=== PATIENT | male | born 1950 | race Caucasian/White ===

== ENCOUNTER → 2016-08-25 | Outpatient (REF) | payer MEDICARE, OTHER ==
[2016-08-25 16:32] LABS: ALBUMIN 3.4 GM/DL (3.2-5.2); ALKALINE PHOSPHATASE 88 U/L (45-117); ALT/SGPT 14 U/L (12-78); ANION GAP 5 MEQ/L (8-16); AST/SGOT 9 U/L (15-37); BILIRUBIN,TOTAL 0.3 MG/DL (0.2-1.0); BLOOD UREA NITROGEN 15 MG/DL (7-18); CALCIUM LEVEL 9.2 MG/DL (8.8-10.2); CARBON DIOXIDE LEVEL 31 MEQ/L (21-32); CHLORIDE LEVEL 105 MEQ/L (98-107); GLOMERULAR FILTRATION RATE > 60.0 (>49); GLUCOSE, FASTING 77 MG/DL (80-110); POTASSIUM SERUM 4.4 MEQ/L (3.5-5.1); SODIUM LEVEL 141 MEQ/L (136-145); TOTAL PROTEIN 6.8 GM/DL (6.4-8.2)
[2016-08-25 18:02] LABS: BASO # 0.1 K/mm3 (0.0-0.2); BASO % 0.9 % (0.0-1.0); EOS # 0.2 K/mm3 (0.0-0.50); EOS % 2.4 % (0.0-3.0); LARGE UNSTAINED CELL # 0.1 K/mm3 (0.0-0.4); LARGE UNSTAINED CELL % 0.9 % (0.0-4.0); LYMPH # 2.1 K/mm3 (1.5-4.5); LYMPH % 23.1 % (24.0-44.0); MEAN CORPUSCULAR HEMOGLOBIN 32.5 pg (27.0-33.0); MEAN CORPUSCULAR HGB CONC 33.7 g/dl (32.0-36.5); MEAN CORPUSCULAR VOLUME 96.5 fl (80.0-96.0); MONO # 0.4 K/mm3 (0.0-0.8); MONO % 4.5 % (0.0-5.0); NEUTROPHILS % 68.1 % (36.0-66.0); PLATELET COUNT, AUTOMATED 246 k/mm3 (150-450); RED CELL DISTRIBUTION WIDTH 12.4 % (11.5-14.5); WHITE BLOOD COUNT 8.9 K/mm3 (4.0-10.0)
[2016-08-25 20:56] LABS: ERYTHROCYTE SEDIMENTATION RATE 33 mm/hr (0-20)
== END ==
LOC: M LABDRAW1 15:46
PROVIDERS: ATTEND Emergency Medicine
DX: M35.3 Polymyalgia rheumatica (principal)

== ENCOUNTER → 2016-09-14 | Outpatient (CLI) | payer MEDICARE, OTHER | LOC: M WUC 17:40 | PROVIDERS: ATTEND Emergency Medicine | DX: M35.3 Polymyalgia rheumatica (principal) ==

== ENCOUNTER → 2016-10-19 | Outpatient (CLI) | payer MEDICARE, OTHER | LOC: M WUC 15:28 | PROVIDERS: ATTEND Emergency Medicine | DX: M35.3 Polymyalgia rheumatica (principal) ==

== ENCOUNTER → 2016-11-27 | Outpatient (CLI) | payer MEDICARE, OTHER | LOC: M WUC 17:41 | PROVIDERS: ATTEND Emergency Medicine | DX: M35.3 Polymyalgia rheumatica (principal) ==

== ENCOUNTER → 2016-12-28 | Outpatient (CLI) | payer MEDICARE, OTHER | LOC: M WUC 17:40 | PROVIDERS: ATTEND Emergency Medicine | DX: M35.3 Polymyalgia rheumatica (principal) ==

== ENCOUNTER → 2017-01-23 | Outpatient (CLI) | payer MEDICARE, OTHER | LOC: M LAB 18:42 | PROVIDERS: ATTEND Emergency Medicine | DX: M35.3 Polymyalgia rheumatica (principal) ==

== ENCOUNTER → 2017-01-29 | Outpatient (REF) | payer MEDICARE, OTHER | LOC: M LAB REF 17:14 | PROVIDERS: ATTEND Emergency Medicine | DX: D48.5 Neoplasm of uncertain behavior of skin (principal) ==

== ENCOUNTER → 2017-10-17 | Outpatient (CLI) | payer MEDICARE, OTHER ==
[2017-10-17 20:01] LABS: BASO # 0.1 10^3/uL (0.0-0.2); BASO % 0.9 % (0.0-1.0); EOS # 0.2 10^3/uL (0.0-0.50); EOS % 1.7 % (0.0-3.0); HEMATOCRIT 42.8 % (42.0-52.0); HEMOGLOBIN 14.9 g/dl (13.5-17.5); IMMATURE GRANULOCYTE % 0.1 % (0-3.0); LYMPH # 3.2 10^3/uL (1.5-4.5); LYMPH % 37.2 % (24.0-44.0); MEAN CORPUSCULAR HEMOGLOBIN 32.3 pg (27.0-33.0); MEAN CORPUSCULAR HGB CONC 34.8 g/dl (32.0-36.5); MEAN CORPUSCULAR VOLUME 92.8 fl (80.0-96.0); MONO # 0.5 10^3/uL (0.0-0.8); MONO % 5.2 % (0.0-5.0); NEUTROPHILS # 4.8 10^3/uL (1.8-7.7); NEUTROPHILS % 54.9 % (36.0-66.0); PLATELET COUNT, AUTOMATED 201 10^3/uL (150-450); RED BLOOD COUNT 4.61 10^6/uL (4.30-6.10); WHITE BLOOD COUNT 8.7 10^3/uL (4.0-10.0)
[2017-10-17 20:49] LABS: FOLATE > 24.0 NG/ML; TOTAL 25(OH) VITAMIN D 46.9 NG/ML (30.0-100.0); VITAMIN B12 LEVEL 710 PG/ML
[2017-10-17 21:01] LABS: ALBUMIN 3.7 GM/DL (3.2-5.2); ALBUMIN/GLOBULIN RATIO 1.09 (1.00-1.93); ALKALINE PHOSPHATASE 70 U/L (45-117); ALT/SGPT 21 U/L (12-78); ANION GAP 6 MEQ/L (8-16); AST/SGOT 14 U/L (7-37); BILIRUBIN,TOTAL 0.4 MG/DL (0.2-1.0); BLOOD UREA NITROGEN 16 MG/DL (7-18); CALCIUM LEVEL 8.6 MG/DL (8.8-10.2); CARBON DIOXIDE LEVEL 29 MEQ/L (21-32); CHLORIDE LEVEL 108 MEQ/L (98-107); CHOLESTEROL LEVEL 175 MG/DL (<200); CHOLESTEROL RISK RATIO 4.729 (<5); CREATININE FOR GFR 1.12 MG/DL (0.70-1.30); GLOMERULAR FILTRATION RATE > 60.0 (>49); GLUCOSE, FASTING 114 MG/DL (70-100); HDL CHOLESTEROL 37 MG/DL (>40); LDL CHOLESTEROL 83.4 MG/DL (<100); NON-HDL-C 138 MG/DL; POTASSIUM SERUM 4.5 MEQ/L (3.5-5.1); PSA SCREENING 2.55 NG/ML (< 4.0); SODIUM LEVEL 143 MEQ/L (136-145); THYROID STIMULATING HORMONE 0.606 uIU/ML (0.358-3.740); TOTAL PROTEIN 7.1 GM/DL (6.4-8.2); TRIGLYCERIDES LEVEL 273 MG/DL (<150)
== END ==
LOC: M WUC 17:43
DX: R53.83 Other fatigue (principal); E55.9 Vitamin D deficiency, unspecified; N40.1 Benign prostatic hyperplasia with lower urinary tract symptoms; Z79.899 Other long term (current) drug therapy
CPT/HCPCS: 82746

== ENCOUNTER → 2018-01-25 | Outpatient (CLI) | payer BC, MEDICARE, OTHER | LOC: M PAIN 13:30 | DX: M96.1 Postlaminectomy syndrome, not elsewhere classified (principal); M54.5 Low back pain; E55.9 Vitamin D deficiency, unspecified; F17.290 Nicotine dependence, other tobacco product, uncomplicated; Z79.899 Other long term (current) drug therapy; Z91.030 Bee allergy status; Z86.59 Personal history of other mental and behavioral disorders | CPT/HCPCS: G0463 ==

== ENCOUNTER → 2018-10-04 | Outpatient (CLI) | payer MEDICARE, BC, OTHER ==
[~2018-10-04] MED LIST: BACL1TAB8 PO; CHAN1PAK11 PO; FLUTISP; OXYC15TA76 PO; OXYC40TA29 PO; TAMS1CAP17 PO; [UNRECOGNIZED DRUG - CODE] TOP
[2018-10-04 13:33] LABS: HEMOGLOBIN 14.5 g/dl (13.5-17.5); MEAN CORPUSCULAR HEMOGLOBIN 31.9 pg (27.0-33.0); MEAN CORPUSCULAR HGB CONC 33.7 g/dl (32.0-36.5); MEAN CORPUSCULAR VOLUME 94.5 fl (80.0-96.0); PLATELET COUNT, AUTOMATED 223 10^3/uL (150-450); RED BLOOD COUNT 4.55 10^6/uL (4.30-6.10); WHITE BLOOD COUNT 7.2 10^3/uL (4.0-10.0)
--- NOTE | 2018-10-07 01:09 | ECGEPIP ---
[facility] Test Date: 2018-10-04 Pat Name: DAVE SIU Department: Room: - Gender: Male Engineering Manager: KENYETTA : 1950 Requested By: Sonny Cortez Order Number: [id number] Reading MD: Carlton Freeman Measurements Intervals [place] Rate: 61 P: 57 MS: 163 QRS: 58 QRSD: 96 T: 42 QT: 413 QTc: 417 Interpretive Statements SINUS RHYTHM WITH OCCASIONAL VENTRICULAR PREMATURE COMPLEXES No prior tracing in the system Electronically Signed on 10-07-2018 1:09:13 EDT by Carlton Freeman
== END ==
LOC: M LAB 12:52
PROVIDERS: ATTEND Internal Medicine
DX: Z01.818 Encounter for other preprocedural examination (principal)

== ENCOUNTER 2018-10-07 08:02 | Day surgery (SDC) | payer MEDICARE, BC, OTHER ==
[~2018-10-07] VITALS: Ht 177.8 cm; Wt 86.6 kg
[~2018-10-07 08:02] MED LIST changes: +BUPIVACAINE/EPIN 0.25% 30 ML VIAL As Ordered ONE; -FLUTISP; +KETOROLAC 60 MG/2 ML VIAL (J1885) As Ordered ONE; +LIDOCAINE 2% INJ 100 MG/5 ML SDV (FOR ANES.) As Ordered ONE; +LR 1,000 ML IV ONE; +ONDANSETRON 4MG/2ML VIAL (J2405) As Ordered ONE; +PROPOFOL 200 MG/20 ML VIAL As Ordered ONE; +ROCURONIUM BROMIDE 50 MG/5 ML VIAL As Ordered ONE; +dexameTHASONE 4 MG/ML 1ML VIAL (J1100) As Ordered ONE
[2018-10-07] MEDS ORDERED: fentaNYL 250 MCG/5 ML INJECTION (J3010) As Ordered ONE (08:15)
[2018-10-07] MEDS ORDERED: MIDAZOLAM INJ 2 MG/2 ML VIAL (J2250) As Ordered ONE (08:15)
[2018-10-07] MEDS ORDERED: FLUTISP (08:30)
[2018-10-07] MEDS ORDERED: KETAMINE HCL 200 MG/20 ML VIAL As Ordered ONE (09:49)
[2018-10-07] MEDS ORDERED: SUGAMMADEX SODIUM 500 MG/5 ML VIAL (BRIDION) As Ordered ONE (10:10)
[2018-10-07] MEDS ORDERED: PERCOCET 5MG/325MG TAB As Ordered ONE (10:45)
[2018-10-07] MEDS: PERCOCET 5MG/325MG TAB PO PRN ×2 (10:47→11:40)
--- NOTE | 2018-10-07 10:57 | RO ---
DATE OF PROCEDURE: 10/07/2018 PREOPERATIVE DIAGNOSIS: Right inguinal hernia. POSTOPERATIVE DIAGNOSIS: Right inguinal hernia. PROCEDURE: Robotic repair of right inguinal hernia. SURGEON: Marcio Merchant DO ELEMENT[employer] TEACHER: DAVINA Zamorano ANESTHESIA: General. ESTIMATED BLOOD LOSS: 5 mL. COMPLICATIONS: None. INDICATION FOR PROCEDURE: Patient is a 67-year-old male who presents with right groin pain and a bulge, found to have a right inguinal hernia. RECOMMENDATIONS: Proceed with robotic repair. Risks, benefits of the procedure not limited but including bleeding, infection, hernia formation, hernia recurrence, damage to surrounding structures, need for further surgery were discussed in detail with the patient. Informed consent was obtained and procedure was planned. PROCEDURE: Patient was brought back to operating room 7. After sufficient sedation the abdomen was sterilely prepped and draped. Next, a time out was done to confirm proper patient and proper procedure. Following that, a stab incision was made in the left upper quadrant, Veress needle inserted and the abdomen was insufflated to 15 mmHg. Next, an 8 mm supraumbilical midline incision was made and an 8 mm robotic OptiView port was used to gain access to the abdomen. Once the abdomen was entered, Veress needle site was examined. There was no signs of any injury. Veress needle was then removed and replaced with an 8 mm robotic port. Another 8 mm robotic port was placed in the right upper quadrant. Next, the robot was docked to the ports and then from console, in the right groin there was direct and indirect hernias easily identified. The preperitoneal space was entered with a curved incision. Preperitoneal space was then dissected free laterally and then medially and then around the hernia sac. The indirect sac was very small and easily reducible from all of the cord structures. The direct hernia sac was also slightly reducible as well. Once it was all completely reduced, Bard 3DMax light medium mesh was placed in the preperitoneal space on right side. The direct hernia sac was inverted and sutured to the pubic symphysis along with the mesh using #2-0 Vicryl suture. Next, the peritoneal defect was closed with a running #2-0 V-Loc thus completing the intraperitoneal portion of the case. Landenberg were removed. Abdomen was desufflated. Skin incisions closed with #4-0 Vicryl subcuticular sutures. The abdomen was cleaned and dried. Steri-Strips, 4x4 and tape were applied thus ending procedure.
[2018-10-07] MEDS ORDERED: MEPERIDINE INJ 25 MG/ML VIAL (J2175) IV PRN (11:00)
[2018-10-07] MEDS ORDERED: METOCLOPRAMIDE INJ 10MG/2ML VIAL (J2765) IV PRN (11:00)
[2018-10-07] MEDS ORDERED: LR 1,000 ML IV SCH (11:00)
[2018-10-07] MEDS ORDERED: NORCO, ANEXSIA 5/325MG TABLET (HYDROcodone/ACETAMINOPHEN) PO PRN (11:00)
[2018-10-07] MEDS ORDERED: ONDANSETRON 4MG/2ML VIAL (J2405) IV PRN (11:00)
[2018-10-07] MEDS ORDERED: fentaNYL 100 MCG/2 ML INJECTION (J3010) As Ordered ONE (11:05)
[2018-10-07] MEDS: fentaNYL 100 MCG/2 ML INJECTION (J3010) IV PRN ×4 (11:07→11:22)
[2018-10-07 13:15] VITALS: BP 141/85
== END 2018-10-07 13:20 | disposition home or self-care (01) ==
LOC: M SDC 08:02
PROVIDERS: ATTEND Surgery
DX: K40.90 Unilateral inguinal hernia, without obstruction or gangrene, not specified as recurrent (principal); Z79.899 Other long term (current) drug therapy
CPT/HCPCS: 49650; C1781; J0690; J1100; J1885; J2250; J2405; J3010

== ENCOUNTER → 2018-10-21 | Outpatient (CLI) | payer MEDICARE, BC, OTHER ==
[~2018-10-21] MED LIST changes: -BUPIVACAINE/EPIN 0.25% 30 ML VIAL As Ordered ONE; +FLUTISP; -KETOROLAC 60 MG/2 ML VIAL (J1885) As Ordered ONE; -LIDOCAINE 2% INJ 100 MG/5 ML SDV (FOR ANES.) As Ordered ONE; -LR 1,000 ML IV ONE; -ONDANSETRON 4MG/2ML VIAL (J2405) As Ordered ONE; -PROPOFOL 200 MG/20 ML VIAL As Ordered ONE; -ROCURONIUM BROMIDE 50 MG/5 ML VIAL As Ordered ONE; -dexameTHASONE 4 MG/ML 1ML VIAL (J1100) As Ordered ONE
--- NOTE | 2018-10-21 17:15 | REP ---
CHEST, TWO VIEWS: Two views of the chest are performed and compared to prior study of 10/17/2017. No acute infiltrate is seen. There is mild chronic interstitial prominence in the lung bases. The heart is normal in size. There is mild tortuosity of the thoracic aorta. The mediastinal silhouette is unchanged. There are old healed right hip fractures again noted laterally. Metallic plate and screws are seen in the lower cervical spine. There are mild degenerative changes of the spine. IMPRESSION: No evidence of acute pulmonary disease with no change since the prior study. Electronically Signed by Marcio Olivarez MD 10/22/2018 05:25 P
[2018-10-21 17:19] LABS: CALCIUM LEVEL 9.5 MG/DL (8.8-10.2); CREATININE FOR GFR 1.5 MG/DL (0.70-1.30); GLOMERULAR FILTRATION RATE 49.4 (>49); POTASSIUM SERUM 4.2 MEQ/L (3.5-5.1)
[2018-10-21 17:24] LABS: INR 1.07; PROTHROMBIN TIME 13.6 SECONDS (11.8-14.0)
[2018-10-21 17:25] LABS: PARTIAL THROMBOPLASTIN TIME 31.5 SECONDS (25.0-38.4)
== END ==
LOC: M LAB 15:44
PROVIDERS: ATTEND Nurse Practitioner Family
DX: Z01.818 Encounter for other preprocedural examination (principal); N20.0 Calculus of kidney

== ENCOUNTER → 2018-10-22 | Outpatient (REF) | payer MEDICARE, OTHER ==
[2018-10-22 14:10] LABS: APPEARANCE, URINE CLOUDY (CLEAR); BACTERIA, URINE AUTO 1+ (NEGATIVE); BILIRUBIN, URINE AUTO NEGATIVE (NEGATIVE); BLOOD, URINE BLOOD 1+ (NEGATIVE); CALCIUM OXALATE CRYSTALS SMALL; COLOR, URINE YELLOW (YELLOW); GLUCOSE, URINE (UA) AUTO NEGATIVE (NEGATIVE); KETONE, URINE AUTO TRACE mg/dL (NEGATIVE); LEUKOCYTE ESTERASE, URINE AUTO 1+ (NEGATIVE); MUCUS, URINE LARGE (NEGATIVE); NITRITE, URINE AUTO NEGATIVE (NEGATIVE); PROTEIN, URINE AUTO 1+ mg/dL (NEGATIVE); RBC, URINE AUTO 82 /HPF (0-3); SPECIFIC GRAVITY URINE AUTO 1.025 (1.002-1.035); SQUAMOUS EPITHELIAL CELL UR AU 0 /HPF (0-6); WBC, URINE AUTO 54 /HPF (0-3)
== END ==
LOC: M SMT 13:08
PROVIDERS: ATTEND Nurse Practitioner Family
DX: N20.0 Calculus of kidney (principal); Z01.818 Encounter for other preprocedural examination

== ENCOUNTER 2018-10-28 08:21 | Day surgery (SDC) | payer MEDICARE, BC, OTHER ==
[~2018-10-28] VITALS: Ht 180.3 cm; Wt 86.6 kg
[~2018-10-28 08:21] MED LIST changes: +LR 1,000 ML IV ONE; +LevoFLOXacin IV 500 MG in APPROPRIATE DILUENT 1 EA IV ONE
[2018-10-28] MEDS ORDERED: CONRAY-60 60% 50ML VIAL (Q9961) As Ordered ONE (08:29)
[2018-10-28] MEDS ORDERED: dexameTHASONE 4 MG/ML 1ML VIAL (J1100) As Ordered ONE (08:37)
[2018-10-28] MEDS ORDERED: PROPOFOL 200 MG/20 ML VIAL As Ordered ONE (08:37)
[2018-10-28] MEDS ORDERED: ONDANSETRON 4MG/2ML VIAL (J2405) As Ordered ONE (08:37)
[2018-10-28] MEDS ORDERED: LIDOCAINE 2% INJ 100 MG/5 ML SDV (FOR ANES.) As Ordered ONE (08:37)
[2018-10-28] MEDS ORDERED: MIDAZOLAM INJ 2 MG/2 ML VIAL (J2250) As Ordered ONE (08:37)
[2018-10-28] MEDS ORDERED: fentaNYL 100 MCG/2 ML INJECTION (J3010) As Ordered ONE ×2 (08:38→11:08)
[2018-10-28] MEDS ORDERED: ePHEDrine SULFATE 25 MG/5 ML(5MG/ML) SYRINGE As Ordered ONE (10:03)
[2018-10-28] MEDS ORDERED: oxyCODONE 5MG TAB As Ordered ONE (11:08)
[2018-10-28] MEDS: oxyCODONE 5MG TAB PO PRN ×2 (11:10→11:55)
[2018-10-28] MEDS: fentaNYL 100 MCG/2 ML INJECTION (J3010) IV PRN ×5 (11:11→11:55)
[2018-10-28] MEDS ORDERED: LR 1,000 ML IV SCH (11:30)
[2018-10-28] MEDS ORDERED: PERCOCET 5MG/325MG TAB PO PRN (11:30)
[2018-10-28] MEDS ORDERED: ONDANSETRON 4MG/2ML VIAL (J2405) IV PRN (11:30)
[2018-10-28] MEDS ORDERED: KETOROLAC 30 MG/ML VIAL (J1885) As Ordered ONE (11:39)
[2018-10-28] MEDS ORDERED: ACETAMINOPHEN 1000MG 100ML IV BTL (OFIRMEV) (J0131 PER 10MG) As Ordered ONE (11:39)
[2018-10-28] MEDS ORDERED: KETOROLAC 30 MG/ML VIAL (J1885) IV ONE (12:00)
[2018-10-28] MEDS ORDERED: ACETAMINOPHEN *IV* 1,000 MG IV ONE ×2 (12:00)
[2018-10-28] MEDS ORDERED: oxyBUTYnin 5 MG TAB PO ONE (12:00)
--- NOTE | 2018-10-28 12:14 | REP ---
C-ARM VIEWS ABDOMEN DURING URETERAL STENT PLACEMENT: Four C-arm views abdomen performed. There is placement of a right ureteral stent. The proximal end is coiled in the right renal pelvis. The distal end is coiled in the urinary bladder. 32 seconds fluoroscopy time utilized. Electronically Signed by Marcio Olivarez MD 10/29/2018 03:38 P
[2018-10-28 13:00] VITALS: BP 142/78
--- NOTE | 2018-10-29 17:41 | RO ---
DATE OF PROCEDURE: 10/28/2018 PREPROCEDURE DIAGNOSIS: Right kidney stones. POSTOPERATIVE DIAGNOSIS: Right kidney stones. PROCEDURE: Cystoscopy, right ureteroscopy with laser lithotripsy, right retrograde pyelogram with intraoperative interpretation of images, left ureteral stent placement. SURGEON: Dr. Cosme Dwyer DATAPOWER DEVELOPER: None. ANESTHESIA: General. OPERATIVE INDICATIONS: This is a 68-year-old male who on imaging was found to have a 1.2 cm right kidney stone. He was brought to the operating room today for the above listed procedure. DESCRIPTION OF PROCEDURE: The patient was brought to the operating room where general anesthesia was induced. Prophylactic antibiotics were infused. He was then placed in dorsal lithotomy position and prepped and draped in the usual sterile fashion. A rigid cystoscope was inserted into the urethral meatus and advanced into the bladder. When inside the bladder, I then advanced a guidewire up the right collecting system. I then advanced the ureteral access sheath up the right collecting system. I went up the access sheath with a flexible ureteroscope and of note the patient's mid to proximal ureter was moderately narrow and this made it very difficult to get the ureteroscope all the way into the right kidney. Once I was in the right kidney I examined all the calices and within the lower pole calyx there is a 1.2 cm stone seen. At this point a 272 micron laser fiber was utilized to fragment the stones into several smaller pieces. Of note I made the decision not try to basket the stone fragments given the difficulty getting the ureteroscope in. This would have made it very difficult to get the scope back and forth to get all of the pieces. I therefore decided to blast the stones into several smaller fragments. Once the stones were adequately dusted a retrograde pyelogram was performed and was notable for mild right hydronephrosis with no extravasation. I then withdrew the ureteroscope along with the access sheath and no additional stones were seen. I then utilized the wire to advance a 7 Egyptian x 22-32 cm JJ ureteral stent up into the right collecting system. The wire was then removed and there were adequate curls of the stent in the lower pole jason and in the bladder. The bladder was emptied of all fluid and this marked the conclusion of the procedure. The patient was then taken out of the dorsal lithotomy position, awakened from anesthesia and transported to the recovery room in stable condition. Estimated blood loss: 5 mL. Complications: None. Specimen: None. Plan: The patient will followup in the clinic in a week or two for KUB with possible removal. Of note this patient also has a right renal mass that appears to be cancerous and has not been treated per the patient report. If this is the case we can set him up for a right robotic partial nephrectomy and we can potentially remove the stent at that time. RUPERT
== END 2018-10-28 13:15 | disposition home or self-care (01) ==
LOC: M SDC 08:21
PROVIDERS: ATTEND Urology
DX: N20.0 Calculus of kidney (principal); M54.2 Cervicalgia; N40.0 Benign prostatic hyperplasia without lower urinary tract symptoms; Z79.899 Other long term (current) drug therapy; Z87.891 Personal history of nicotine dependence
CPT/HCPCS: 52356; 76000; C1769; C1894; C2617; J0131; J1100; J1885; J1956; J2250; J2405; J3010; Q9961

== ENCOUNTER 2018-11-02 16:52 | Emergency (ER) | payer MEDICARE, BC, OTHER ==
[~2018-11-02] VITALS: Ht 177.8 cm; Wt 89.3 kg
[~2018-11-02 16:52] MED LIST changes: -LR 1,000 ML IV ONE; -LevoFLOXacin IV 500 MG in APPROPRIATE DILUENT 1 EA IV ONE
[2018-11-02] MEDS ORDERED: KETOROLAC 30 MG/ML VIAL (J1885) IV ONE (17:30)
[2018-11-02] MEDS ORDERED: ONDANSETRON 4MG/2ML VIAL (J2405) IV ONE (17:30)
[2018-11-02 17:47] LABS: BASO # 0.1 10^3/uL (0.0-0.2); BASO % 0.7 % (0.0-1.0); EOS # 0.4 10^3/uL (0.0-0.50); EOS % 4.4 % (0.0-3.0); HEMATOCRIT 37.5 % (42.0-52.0); HEMOGLOBIN 12.8 g/dl (13.5-17.5); LYMPH # 2.2 10^3/uL (1.5-4.5); LYMPH % 24.3 % (24.0-44.0); MEAN CORPUSCULAR HEMOGLOBIN 32.2 pg (27.0-33.0); MEAN CORPUSCULAR HGB CONC 34.1 g/dl (32.0-36.5); MEAN CORPUSCULAR VOLUME 94.2 fl (80.0-96.0); MONO # 0.7 10^3/uL (0.0-0.8); MONO % 7.8 % (0.0-5.0); NEUTROPHILS # 5.8 10^3/uL (1.8-7.7); NEUTROPHILS % 62.7 % (36.0-66.0); PLATELET COUNT, AUTOMATED 184 10^3/uL (150-450); RED BLOOD COUNT 3.98 10^6/uL (4.30-6.10); WHITE BLOOD COUNT 9.2 10^3/uL (4.0-10.0)
[2018-11-02 18:21] LABS: ALBUMIN 3.4 GM/DL (3.2-5.2); BILIRUBIN,DIRECT 0.2 MG/DL (0.0-0.2); BILIRUBIN,TOTAL 0.6 MG/DL (0.2-1.0); CALCIUM LEVEL 8.8 MG/DL (8.8-10.2); CREATININE FOR GFR 1.63 MG/DL (0.70-1.30); GLOMERULAR FILTRATION RATE 44.9 (>49); POTASSIUM SERUM 4.3 MEQ/L (3.5-5.1); TOTAL PROTEIN 6.7 GM/DL (6.4-8.2)
--- NOTE | 2018-11-02 19:12 | REPVR ---
EXAM: CT Abdomen and Pelvis Without Contrast EXAM DATE/TIME: 11/02/2018 5:41 PM CLINICAL HISTORY: 68 years old, male; Abdominal pain; Flank; Right; Prior surgery; Surgery date: <1 month; Additional info: Right flank pain/recent stent TECHNIQUE: Imaging protocol: Axial computed tomography images of the abdomen and pelvis without contrast. Coronal and sagittal reformatted images were created and reviewed. Radiation optimization: All CT scans at this facility use at least one of these dose optimization techniques: automated exposure control; mA and/or kV adjustment per patient size (includes targeted exams where dose is matched to clinical indication); or iterative reconstruction. COMPARISON: No relevant prior studies available. FINDINGS: Tubes, catheters and devices: Spinal stimulator leads demonstrated in the epidural space of the lumbar spine. Double pigtail stent catheter demonstrated in the right collecting system. Lungs: 3 mm and 4 mm nodules right lower lobe. Findings likely postinflammatory. Small focus of peripheral artery disease inferior aspect of the lingula lobe. Liver: Small calcified granulomas in the liver. Liver otherwise unremarkable. Gallbladder and bile ducts: Normal. No calcified stones. No ductal dilation. Pancreas: Normal. No ductal dilation. Spleen: Normal. No splenomegaly. Adrenals: Normal. No mass. Kidneys and ureters: Bilateral renal cysts measure 2.3 cm on the right and 2.2 cm on the left. Nonobstructive renal calculi on the right measure up to 13 mm. Stomach and bowel: There is increased feces throughout the right and transverse colon consistent with constipation. Prominent ileocecal valve. Appendix: No evidence of appendicitis. Intraperitoneal space: Normal. No free air. No significant fluid collection. Vasculature: Normal. No abdominal aortic aneurysm. Lymph nodes: Normal. No enlarged lymph nodes. Bladder: Unremarkable as visualized. Reproductive: Unremarkable as visualized. Bones/joints: Deformity of the right sixth and ninth ribs consistent with prior healed rib fractures.. Severe central spinal stenosis at L4-5 with mild central spinal stenosis at L3-4. Soft tissues: Unremarkable. IMPRESSION: 1. Bilateral renal cysts measure 2.3 cm on the right and 2.2 cm on the left. 2. Double pigtail stent catheter demonstrated in the right collecting system. 3. There is increased feces throughout the right and transverse colon consistent with constipation. Electronically signed by: Nir Avila On 11/02/2018 19:11:24 PM
[2018-11-02] MEDS ORDERED: MAGNESIUM CITRATE 300 ML BTL PO ONE (19:30)
[2018-11-02] MEDS ORDERED: METHYLNALTREXONE BROMIDE 12 MG/0.6 ML VIAL (RELISTOR) SC ONE (22:45)
[2018-11-03] MEDS ORDERED: GOLYTELY SOLN 4000 ML BTL PO ONE (00:45)
[2018-11-03] MEDS ORDERED: KETOROLAC 30 MG/ML VIAL (J1885) IV ONE (01:30)
[2018-11-03] MEDS ORDERED: ONDANSETRON 4MG/2ML VIAL (J2405) IV ONE (01:30)
[2018-11-03 02:54] VITALS: BP 138/80
== END 2018-11-03 02:59 | disposition home or self-care (01) ==
LOC: M ED 16:52
DX: K59.03 Drug induced constipation (principal); Z87.442 Personal history of urinary calculi; Z79.899 Other long term (current) drug therapy; Z88.8 Allergy status to other drugs, medicaments and biological substances; Z77.098 Contact with and (suspected) exposure to other hazardous, chiefly nonmedicinal, chemicals
CPT/HCPCS: 74176; 80048; 80076; 81001; 83690; 85025; 87086; 96374; 96375; 96376; 99284; J1885; J2405

== ENCOUNTER → 2018-11-04 | Outpatient (CLI) | payer MEDICARE, OTHER ==
--- NOTE | 2018-11-13 00:06 | ECWPNPC ---
PATIENT NAME: DAVE SIU : 1950 GENDER: MALE VISIT DATE: 11/04/2018 DISCHARGE DATE: 11/04/18 1132 VISIT LOCKED DATE TIME: PHYSICIAN: AFSANEH MEDINA MD RESOURCE: AFSANEH MEDINA MD REASON FOR APPOINTMENT 1. NECK/BACK PAIN HISTORY OF PRESENT ILLNESS HISTORY OF PRESENT ILLNESS: PAIN THE PATIENT DESCRIBES THE PAIN... 68 YEAR OLD MALE PATIENT WITH A HISTORY OF CHRONIC NECK AND THORACIC PAIN. THE PATIENT DESCRIBES THE PAIN ACHING, SORE, AND INTERMITTENT WITH A PAIN SCORE OF 2-9/10 DEPENDING ON PHYSICAL ACTIVITY. THE PATIENT SAYS HE HAS HAD THIS PAIN FOR MANY YEARS AND IT HAS INCREASED OVER TIME. THE PATIENT HAS A HISTORY OF 2 NECK SURGERIES IN THE PAST, BUT SAYS HIS PAIN HAS PERSISTED. THE PATIENT REPORTS THAT HE HAS A MORPHINE PUMP, BUT IT HAS A BATTERY AND IT DID NOT HELP IN THE PAST. THE PATIENT SAYS HE HAD A THERAPEUTIC CERVICAL FACET BLOCK WHILE HE WAS DOWN IN [place] THAT GAVE HIM 4 MONTHS OF PAIN RELIEF. THE PATIENT SAYS HE IS CURRENTLY USING OXYCONTIN 2 TABLETS PER DAY AND OXYCODONE NEEDED. PATIENT DENIES UNEXPLAINABLE WEIGHT LOSS, FEVER, CHILLS, NEW CHANGES ON HIS URINARY OR BOWEL CONTROL. FALL RISK SCREENING: SCREENING :NO FALLS REPORTED IN THE LAST YEAR CURRENT MEDICATIONS TAKING OXYCONTIN 40 MG TABLET ER 12 HOUR ABUSE-DETERRENT 1 TABLET ORALLY EVERY 12 HRS TAKING OXYCODONE HCL 15 MG TABLET 1 TABLET NEEDED ORALLY EVERY 6 HRS TAKING MODAFINIL 200 MG TABLET 1 TABLET IN THE MORNING ORALLY ONCE A DAY TAKING EMSAM 9 MG/24HR PATCH 24 HOUR 1 PATCH TO SKIN TRANSDERMAL ONCE A DAY TAKING VITAMIN D 1000 UNIT CAPSULE 1 CAPSULE ORALLY ONCE A DAY TAKING CIPROFLOXACIN HCL 500 MG TABLET 1 TABLET ORALLY EVERY 12 HRS TAKING OXYBUTYNIN CHLORIDE 5 MG TABLET 1 TABLET ORALLY EVERY 8 HOURS NEEDED FOR BLADDER SPASMS TAKING FLOMAX 0.4 MG CAPSULE EXTENDED RELEASE 24 HOUR 1 CAPSULE 30 MINUTES AFTER THE SAME MEAL EACH DAY ORALLY ONCE A DAY TAKING BACLOFEN 10 MG TABLET 1 TABLET WITH FOOD OR MILK ORALLY BID NOT-TAKING VIAGRA 100 MG TABLET 1 TABLET NEEDED ORALLY ONCE A DAY DISCONTINUED CHANTIX DISCONTINUED PERCOCET 5-325 MG TABLET 1 TABLET ORALLY EVERY 6 HRS NEEDED FOR PAIN (MDD 4) MEDICATION LIST REVIEWED AND RECONCILED WITH THE PATIENT PAST MEDICAL HISTORY MAJOR DEPRESSIVE DISORDER, SINGLE EPISODE, SENSORINEURAL HEARING LOSS BENIGN PROSTATIC HYPERTROPHY VITAMIN D DEFICEINCY CHRONIC PAIN SNDROME CERVICAL SPONDLOSIS RENAL CYSTS HERNIA RIGHT INGUINAL = DR. PHAN ALLERGIES BEE STING: ANAPHYLAXIS SURGICAL HISTORY CERVICAL LAMINECTOMY 1989 INSERTION OF SPINAL PUMP ANTERIOR CERVICAL DECOMPRESSION AND FUSION C5-6 2013 MORPHINE PUMP TONSILS KIDNEY STENT 10/2018 RIGHT HERNIA REPAIR 10/2018 FAMILY HISTORY FATHER: , DEMENTIA MOTHER: , STROKE SIBLINGS: , SISTER:COPD, ASTHMA, [place], POSSIBLY 1 KIDNEY, GALLBLADDER REMOVED. MAJOR NECK AND BACK SX. BROTHER: MAJOR BACK SX SON(S): ALIVE DAUGHTER(S): ALIVE, KIDNEY STONES 1 BROTHER(S) , 1 SISTER(S) . 2DAUGHTER(S) - HEALTHY. SOCIAL HISTORY GENERAL: TOBACCO USE ARE YOU A:FORMER SMOKER VAPS WITH NICOTINE HOW LONG HAS IT BEEN SINCE YOU LAST SMOKED?1-3 MONTHS EDUCATION LEVEL OF EDUCATION: SOME COLLEGE DOMESTIC VIOLENCE DO YOU FEEL SAFE IN YOUR ENVIRONMENT?YES BMI CARE GOAL FOLLOW-UP PFS REFERRAL NEEDED? NO, CLERGY REFERRAL NEEDED? NO, PUBLIC HEALTH REFERRAL NEEDED? NO, WAS THE PROVIDER NOTIFIED OF ANY PERTINENT INFO? NO, HAS THE PATIENT BEEN EDUCATED REGARDING HIS/HER PLAN OF CARE? YES, HAS THE PATIENT BEEN EDUCATED REGARDING PAIN, THE RISK FOR PAIN, THE IMPORTANCE OF EFFECTIVE PAIN MANAGEMENT, AND THE PAIN ASSESSMENT PROCESS? YES. RECREATIONAL DRUG USE DRUG USE?NO LEARNING BARRIERS / SPECIAL NEEDS BARRIERS TO LEARNING?NO HEARING IMPAIRED?YES BILATERAL TINNITIS :HEARING AIDES VISION IMPAIRED?YES MACULAR DEGENERATION UNSURE IF BOTH EYES :CORRECTIVE LENSES READINESS TO LEARN?YES LEARNING PREFERENCES?NO LUNG CANCER SCREENING PFS REFERRAL NEEDED? NO, CLERGY REFERRAL NEEDED? NO, PUBLIC HEALTH REFERRAL NEEDED? NO, WAS THE PROVIDER NOTIFIED OF ANY PERTINENT INFO? NO, HAS THE PATIENT BEEN EDUCATED REGARDING HIS/HER PLAN OF CARE? YES, HAS THE PATIENT BEEN EDUCATED REGARDING PAIN, THE RISK FOR PAIN, THE IMPORTANCE OF EFFECTIVE PAIN MANAGEMENT, AND THE PAIN ASSESSMENT PROCESS? YES. PAIN CLINIC PFS, CLERGY, PUBLIC HEALTH REFERRALS HAS THE PATIENT BEEN EDUCATED REGARDING HIS/HER PLAN OF CARE?YES HAS THE PATIENT BEEN EDUCATED REGARDING PAIN, THE RISK FOR PAIN, THE IMPORTANCE OF EFFECTIVE PAIN MANAGEMENT, AND THE PAIN ASSESSMENT PROCESS?YES CAFFEINE CAFFEINE USE?YES ONLY ON OCCASSION ADVANCE DIRECTIVE ADVANCE DIRECTIVE DISCUSSED WITH PATIENT:YES DECLINED ANABAPTISM [id number] SCIENTOLOGIST NO SIKHISM BELIEFS THAT WOULD IMPACT HEALTH CARE. MARITAL STATUS: . ALCOHOL SCREENING DID YOU HAVE A DRINK CONTAINING ALCOHOL IN THE PAST YEAR?YES HOW OFTEN DID YOU HAVE A DRINK CONTAINING ALCOHOL IN THE PAST YEAR?MONTHLY OR LESS (1 POINT) HOW MANY DRINKS DID YOU HAVE ON A TYPICAL DAY WHEN YOU WERE DRINKING IN THE PAST YEAR?1 OR 2 (0 POINTS) HOW OFTEN DID YOU HAVE SIX OR MORE DRINKS ON ONE OCCASION IN THE PAST YEAR?NEVER (0 POINTS) POINTS1 INTERPRETATIONNEGATIVE SEXUAL HX HAD SEX IN THE LAST 12 MONTHS (VAGINAL, ORAL, OR ANAL)?YES WITHWOMEN ONLY USE PROTECTION?NO HAVE YOU EVER HAD AN STD?YES OTHER?YES HOSPITALIZATION/MAJOR DIAGNOSTIC PROCEDURE SURGERIES KIDNEY STONE = PASSED ON OWN 1990 REVIEW OF SYSTEMS REVIEWED BY: PROVIDER: AFSANEH MEDINA MD . CONSTITUTIONAL: ANY CHANGE IN YOUR MEDICAL CONDITION? NO . CHILLS NO . FEVER NO . INFECTION: DO YOU HAVE NEW INFECTIONS? YES, UIT TX'D W CIPRO . DO YOU HAVE HISTORY OF MRSA? NO . MUSCULOSKELETAL: ANY NEW PATTERNS OF PAIN OR NUMBNESS? NO . GASTROENTEROLOGY: ANY NEW CHANGE IN BOWEL CONTROL? YES, CONSTIPATION S/P HERNIA REPAIR . GENITOURINARY: ANY NEW CHANGE IN BLADDER CONTROL? YES, STENT PLACED TO [place] KIDNEY STONE, PT HAS BEEN URINATING PARTS OF STONE . IS THERE A CHANCE YOU COULD BE ? NO . HEMATOLOGY/LYMPH: DO YOU TAKE ANY BLOOD THINNERS? (FOR EXAMPLE- COUMADIN, PLAVIX, AGGRENOX, PLATEL, PRADAXA, OR XARELTO) NO . WHEN WAS YOUR LAST DOSE? DATE: TIME: . NEUROLOGY: HAVE YOU FALLEN IN THE PAST 12 MONTHS? NO . ANY NEW EXTREMITY NUMBNESS OR WEAKNESS? NO . CARDIOLOGY: DO YOU HAVE A PACEMAKER OR DEFIBRILLATOR? NO . RESPIRATORY: HAVE YOU BEEN SICK IN THE PAST WEEK? YES . FEVER YES, TEMP 99 SUNDAY . FLU LIKE SYMPTOMS? NO . COUGH NO . INTEGUMENTARY: DO YOU HAVE ANY RASHES OR OPEN SORES? NO . ALLERGIC/IMMUNO: ARE YOU ALLERGIC TO IV DYE? NO . ANY NEW ALLERGIES? NO . PSYCHIATRIC: DO YOU HAVE THOUGHTS OF HURTING YOURSELF OR SOMEONE ELSE? NO . ARE YOU ABUSED, NEGLECTED, OR IN AN UNSAFE ENVIRONMENT? NO . ENDOCRINOLOGY: ARE YOU DIABETIC? NO . OTHER: DO YOU NEED ANY PRESCRIPTIONS? YES, OXYCONTIN AND OXYCODONE . IF YES, PLEASE LIST: ____ . ANY NEW PROBLEMS WITH YOUR MEDICATIONS? NO . WHEN DID YOU LAST EAT? ____ . WHEN DID YOU LAST DRINK? ____ . WHAT DID YOU LAST DRINK? ____ . NAME OF PERSON DRIVING YOU HOME? ____ . DO YOU HAVE ANY OTHER QUESTIONS OR CONCERNS NO . VITAL SIGNS WT 199.4 LBS, HT 71 IN, BMI 27.81 INDEX, BP 121/71 MM HG, HR 81 /MIN, RR 18 /MIN, TEMP 98.2 F, OXYGEN SAT % 96%, NA INITIALS SC 10:00, REVIEWED BY: EM. EXAMINATION GENERAL EXAMINATION: PATIENT IS ALERT O X 3 AND COOPERATIVE. TENDERNESS OVER THE CERVICAL FACET JOINTS WITH EXTENSION AND LATERAL ROTATION OF THE NECK. MRI OF THE CERVICAL SPINE DONE ON 05/09/2012 IS SHOWING POST LAMINECTOMY CHANGES. X-RAY OF THE CERVICAL SPINE DONE ON 12/08/2015 IS SHOWING DEGENERATIVE CHANGES AND A FUSION. 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 SIU'S PAIN MANAGEMENT CASE. I WOULD LIKE TO GET A CLEARANCE FROM THE PATIENT'S UROLOGIST TO PROCEED WITH A THERAPEUTIC CERVICAL FACET BLOCK SINCE HE HAS BEEN HAVING UROLOGICAL ISSUES RECENTLY. I WILL ORDER A CT OF THE CERVICAL SPINE SINCE IT HAS BEEN OVER 3 YEARS SINCE HE HAS HAD ANY IMAGING ON HIS NECK AND HIS PAIN HAS BEEN WORSENING. I WILL REFILL THE PATIENT'S OXYCODONE AND OXYCONTIN. ISTOP __#[id number] WAS REVIEWED. THE PATIENT WILL SIGN A NARCOTIC AGREEMENT AND PERFORM A URINE TOXICOLOGY TODAY. THE PATIENT WILL FOLLOW UP NEXT WEEK. I WAS WITH THE PATIENT FOR OVER 25 MINUTES AND MORE THAN HALF OF THAT TIME WAS SPENT DISCUSSING THE PATIENT'S MEDICATIONS AND CARE IN [place]. INSTRUCTIONS WERE GIVEN, QUESTIONS WERE ANSWERED, PATIENT REPORTS UNDERSTANDING AND AGREES WITH THE PLAN. I, LOUIS EDMONDS, DOCUMENTED THE ABOVE INFORMATION ACTING A SCRIBE FOR DR. MEDINA. I HAVE REVIEWED THE ABOVE DOCUMENT, WRITTEN BY LOUIS ROGER AND I VERIFY THAT IT IS ACCURATE. . OTHERS REFILL OXYCONTIN TABLET ER 12 HOUR ABUSE-DETERRENT, 20 MG, 1 TABLET, ORALLY, EVERY 12 HRS, 7 DAYS, 14 TABLET, REFILLS 0 REFILL OXYCODONE HCL TABLET, 15 MG, 1 TABLET NEEDED, ORALLY, EVERY 6 HRS MDD 3, 7 DAYS, 21, REFILLS 0 PROCEDURE CODES FA211 ESTABILISHED PATIENT [facility] CHARGE [id number] CURRENT MEDS W/DOSAGES DOCUMENTED G8730 PAIN ASSESS POS TOOL F/U PLAN DOC DISPOSITION & COMMUNICATION FOLLOW UP NEXT WEEK (REASON: NECK PAIN- LAST PATIENT OF DAY OKAY TO OVERBOOK PER DR Escalante) ELECTRONICALLY SIGNED BY AFSANEH MEDINA MD, ON 11/12/2018 AT 02:17 PM EDT DISCLAIMER : THIS IS A VISIT SUMMARY EXTRACTED FROM THE [employer] CHART. IT IS NOT A COPY OF THE [employer] PROGRESS NOTE. MTDD
== END ==
LOC: M PAIN 09:45
PROVIDERS: ATTEND Anesthesiology
DX: M96.1 Postlaminectomy syndrome, not elsewhere classified (principal); M47.812 Spondylosis without myelopathy or radiculopathy, cervical region; Z86.59 Personal history of other mental and behavioral disorders; E55.9 Vitamin D deficiency, unspecified; F17.290 Nicotine dependence, other tobacco product, uncomplicated; Z91.030 Bee allergy status; Z79.891 Long term (current) use of opiate analgesic; Z79.899 Other long term (current) drug therapy

== ENCOUNTER → 2018-11-07 | Outpatient (CLI) | payer MEDICARE, BC, OTHER ==
--- NOTE | 2018-11-07 17:15 | REP ---
CT cervical spine without contrast: History: Neck pain. Post laminectomy syndrome. No comparison CT studies. Comparison cervical spine MRI exam is from May 09, 2012. CT technique: Helical scanning is acquired and 2 mm axial images are generated. Coronal and sagittal multiplanar reformation images are generated and reviewed. CT findings: There is some straightening. The patient is status post cervical laminectomy at C2 through C7. Partial resection of the spinous process at C2 is evident. The posterior element laminectomy changes appear stable from the 2013 prior study. In the interval since that exam, the patient has undergone ventral discectomy and fusion plating across the C5-6 level. The C5 disc appears well ankylosed. No malalignment is seen. There are degenerative disc changes with narrowing and anterior osteophyte formation at C3-4, C4-5, C6-7, and to a lesser extent C7-T1 and T1-T2. Facets are normally aligned. There are mild bilateral uncovertebral spurs at the C6-7 level right more prominently than left producing neural foraminal narrowing. There is mild uncovertebral spurring at C4-5, right greater than left and minimal right-sided uncovertebral spurring is seen at C3-4. There is no cervical disc protrusion is evident. Mild central disc bulging is present at C4-5. Impression: Extensive postoperative changes with C3-T1 laminectomy and ventral discectomy and fusion across the C5-6 vertebral body level. Degenerative spondylosis changes as noted above. Electronically Signed by Ted Hinojosa MD 11/08/2018 09:40 A
== END ==
LOC: M RAD 15:56
PROVIDERS: ATTEND Anesthesiology
DX: M54.2 Cervicalgia (principal)

== ENCOUNTER → 2018-11-11 | Outpatient (CLI) | payer MEDICARE, OTHER ==
--- NOTE | 2018-11-20 00:29 | ECWPNPC ---
PATIENT NAME: DAVE SIU : 1950 GENDER: MALE VISIT DATE: 11/11/2018 DISCHARGE DATE: 11/11/18 1253 VISIT LOCKED DATE TIME: PHYSICIAN: AFSANEH MEDINA MD RESOURCE: AFSANEH MEDINA MD REASON FOR APPOINTMENT 1. NECK PAIN- LAST PATIENT OF DAY OKAY TO OVERBOOK PER DR Escalante HISTORY OF PRESENT ILLNESS HISTORY OF PRESENT ILLNESS: PAIN THE PATIENT DESCRIBES THE PAIN... 68 YEAR OLD MALE PATIENT WITH A HISTORY OF CHRONIC NECK PAIN. THE PATIENT DESCRIBES THE PAIN ACHING, SORE, NIGHTLY, AND INTERMITTENT WITH A PAIN SCORE OF 3-7/10 DEPENDING ON PHYSICAL ACTIVITY. THE PATIENT SAYS HE HAS BEEN SUFFERING FROM THIS PAIN FOR MANY YEARS AND HAS HAD 2 NECK SURGERIES DONE IN THE PAST, YET THE PAIN STILL PERSISTS. THE PATIENT SAYS HE MANAGES HIS PAIN WITH OXYCONTIN 20 MG AND OXYCODONE 15 MG NEEDED AND ICE PACKS. THE PATIENT RECEIVED A CERVICAL FACET BLOCK IN THE PAST THAT THE PATIENT SAYS PROVIDED GOOD PAIN RELIEF FOR 4 MONTHS. THE PATIENT MENTIONS HE IS ALSO EXPERIENCING LOW BACK PAIN THAT IS CAUSING HIS RIGHT LEG TO BE WEAK AND CAUSES HIM TO LIMP FROM THAT LEG BY THE END OF THE DAY. PATIENT DENIES UNEXPLAINABLE WEIGHT LOSS, FEVER, CHILLS, NEW CHANGES ON HIS BOWEL CONTROL. PATIENT MENTIONS HE IS PASSING KIDNEY STONES. FALL RISK SCREENING: SCREENING :NO FALLS REPORTED IN THE LAST YEAR CURRENT MEDICATIONS TAKING OXYCONTIN 20 MG TABLET ER 12 HOUR ABUSE-DETERRENT 1 TABLET ORALLY EVERY 12 HRS TAKING OXYCODONE HCL 15 MG TABLET 1 TABLET NEEDED ORALLY EVERY 6 HRS MDD 3 TAKING MODAFINIL 200 MG TABLET 1 TABLET IN THE MORNING ORALLY ONCE A DAY TAKING EMSAM 9 MG/24HR PATCH 24 HOUR 1 PATCH TO SKIN TRANSDERMAL ONCE A DAY TAKING VITAMIN D 1000 UNIT CAPSULE 1 CAPSULE ORALLY ONCE A DAY TAKING OXYBUTYNIN CHLORIDE 5 MG TABLET 1 TABLET ORALLY EVERY 8 HOURS NEEDED FOR BLADDER SPASMS TAKING FLOMAX 0.4 MG CAPSULE EXTENDED RELEASE 24 HOUR 1 CAPSULE 30 MINUTES AFTER THE SAME MEAL EACH DAY ORALLY ONCE A DAY TAKING BACLOFEN 10 MG TABLET 1 TABLET WITH FOOD OR MILK ORALLY BID DISCONTINUED CIPROFLOXACIN HCL 500 MG TABLET 1 TABLET ORALLY EVERY 12 HRS DISCONTINUED VIAGRA 100 MG TABLET 1 TABLET NEEDED ORALLY ONCE A DAY MEDICATION LIST REVIEWED AND RECONCILED WITH THE PATIENT PAST MEDICAL HISTORY MAJOR DEPRESSIVE DISORDER, SINGLE EPISODE, SENSORINEURAL HEARING LOSS BENIGN PROSTATIC HYPERTROPHY VITAMIN D DEFICEINCY CHRONIC PAIN SNDROME CERVICAL SPONDLOSIS RENAL CYSTS HERNIA RIGHT INGUINAL = DR. PHAN ALLERGIES BEE STING: ANAPHYLAXIS SURGICAL HISTORY CERVICAL LAMINECTOMY 1989 INSERTION OF SPINAL PUMP ANTERIOR CERVICAL DECOMPRESSION AND FUSION C5-6 2013 MORPHINE PUMP TONSILS KIDNEY STENT 10/2018 RIGHT HERNIA REPAIR 10/2018 FAMILY HISTORY FATHER: , DEMENTIA MOTHER: , STROKE SIBLINGS: , SISTER:COPD, ASTHMA, [place], POSSIBLY 1 KIDNEY, GALLBLADDER REMOVED. MAJOR NECK AND BACK SX. BROTHER: MAJOR BACK SX SON(S): ALIVE DAUGHTER(S): ALIVE, KIDNEY STONES 1 BROTHER(S) , 1 SISTER(S) . 2DAUGHTER(S) - HEALTHY. SOCIAL HISTORY GENERAL: TOBACCO USE ARE YOU A:FORMER SMOKER VAPS WITH NICOTINE HOW LONG HAS IT BEEN SINCE YOU LAST SMOKED?1-3 MONTHS OTHERS AT HOME: SPOUSE, IN-LAW(S). EDUCATION LEVEL OF EDUCATION: SOME COLLEGE DIET: REGULAR. DOMESTIC VIOLENCE DO YOU FEEL SAFE IN YOUR ENVIRONMENT?YES BMI CARE GOAL FOLLOW-UP PFS REFERRAL NEEDED? NO, CLERGY REFERRAL NEEDED? NO, PUBLIC HEALTH REFERRAL NEEDED? NO, WAS THE PROVIDER NOTIFIED OF ANY PERTINENT INFO? NO, HAS THE PATIENT BEEN EDUCATED REGARDING HIS/HER PLAN OF CARE? YES, HAS THE PATIENT BEEN EDUCATED REGARDING PAIN, THE RISK FOR PAIN, THE IMPORTANCE OF EFFECTIVE PAIN MANAGEMENT, AND THE PAIN ASSESSMENT PROCESS? YES. RECREATIONAL DRUG USE DRUG USE?NO EXERCISE: NO REGULAR EXERCISE. LEARNING BARRIERS / SPECIAL NEEDS BARRIERS TO LEARNING?NO HEARING IMPAIRED?YES BILATERAL TINNITIS :HEARING AIDES VISION IMPAIRED?YES MACULAR DEGENERATION UNSURE IF BOTH EYES :CORRECTIVE LENSES READINESS TO LEARN?YES LEARNING PREFERENCES?NO PAIN CLINIC PFS, CLERGY, PUBLIC HEALTH REFERRALS HAS THE PATIENT BEEN EDUCATED REGARDING HIS/HER PLAN OF CARE?YES HAS THE PATIENT BEEN EDUCATED REGARDING PAIN, THE RISK FOR PAIN, THE IMPORTANCE OF EFFECTIVE PAIN MANAGEMENT, AND THE PAIN ASSESSMENT PROCESS?YES LATEX QUESTIONNAIRE LATEX ALLERGY : HAVE YOU EVER DEVELOPED ANY TYPE OF REACTION AFTER HANDLING LATEX PRODUCTS SUCH RUBBER GLOVES, CONDOMS, DIAPHRAGMS, BALLOONS, SOCKS, OR UNDERWEAR?NO LATEX ALLERGY : HAVE YOU EVER DEVELOPED ANY TYPE OF REACTION DURING OR AFTER DENTAL APPOINTMENT, VAGINAL/RECTAL EXAMINATION, SURGICAL PROCEDURE, OR ANY OTHER EXPOSURE?NO LATEX RISK : HAVE YOU EVER HAD ANY DIFFICULTY BREATHING OR HIVES AFTER EATING OR HANDLING ANY FRUITS, OR VEGETABLES; SUCH KIWI, BANANAS, STONE FRUITS, OR CHESTNUTSNO LATEX RISK : DO YOU HAVE A PREVIOUS PERSONAL HISTORY OF MORE THAN NINE SURGERIES, SPINA BIFIDA, OR REPEATED CATHERIZATIONS? NO LATEX RISK : ARE YOU FREQUENTLY EXPOSED TO LATEX PRODUCTS IN YOUR OCCUPATION?YES DATE ASKED : 11/11/2018 CAFFEINE CAFFEINE USE?YES ONLY ON OCCASSION ADVANCE DIRECTIVE ADVANCE DIRECTIVE DISCUSSED WITH PATIENT:YES HCP INFORMATION GIVEN TO PT. GNOSTICIST [id number] CONFUCIANISM NO ADVENTISM BELIEFS THAT WOULD IMPACT HEALTH CARE. MARITAL STATUS: . ALCOHOL SCREENING DID YOU HAVE A DRINK CONTAINING ALCOHOL IN THE PAST YEAR?YES HOW OFTEN DID YOU HAVE A DRINK CONTAINING ALCOHOL IN THE PAST YEAR?MONTHLY OR LESS (1 POINT) HOW MANY DRINKS DID YOU HAVE ON A TYPICAL DAY WHEN YOU WERE DRINKING IN THE PAST YEAR?1 OR 2 (0 POINTS) HOW OFTEN DID YOU HAVE SIX OR MORE DRINKS ON ONE OCCASION IN THE PAST YEAR?NEVER (0 POINTS) POINTS1 INTERPRETATIONNEGATIVE OCCUPATION: MUSICAN. SEXUAL HX HAD SEX IN THE LAST 12 MONTHS (VAGINAL, ORAL, OR ANAL)?YES WITHWOMEN ONLY USE PROTECTION?NO HAVE YOU EVER HAD AN STD?YES OTHER?YES HOSPITALIZATION/MAJOR DIAGNOSTIC PROCEDURE SURGERIES KIDNEY STONE = PASSED ON OWN 1990 REVIEW OF SYSTEMS REVIEWED BY: PROVIDER: AFSANEH MEDINA MD . CONSTITUTIONAL: ANY CHANGE IN YOUR MEDICAL CONDITION? NO . CHILLS NO . FEVER NO . INFECTION: DO YOU HAVE NEW INFECTIONS? NO . DO YOU HAVE HISTORY OF MRSA? NO . MUSCULOSKELETAL: ANY NEW PATTERNS OF PAIN OR NUMBNESS? NO . GASTROENTEROLOGY: ANY NEW CHANGE IN BOWEL CONTROL? NO . GENITOURINARY: ANY NEW CHANGE IN BLADDER CONTROL? YES . IS THERE A CHANCE YOU COULD BE ? NO . HEMATOLOGY/LYMPH: DO YOU TAKE ANY BLOOD THINNERS? (FOR EXAMPLE- COUMADIN, PLAVIX, AGGRENOX, PLATEL, PRADAXA, OR XARELTO) NO . WHEN WAS YOUR LAST DOSE? DATE: TIME: . NEUROLOGY: HAVE YOU FALLEN IN THE PAST 12 MONTHS? NO . ANY NEW EXTREMITY NUMBNESS OR WEAKNESS? NO . CARDIOLOGY: DO YOU HAVE A PACEMAKER OR DEFIBRILLATOR? NO . RESPIRATORY: HAVE YOU BEEN SICK IN THE PAST WEEK? NO . FEVER NO . FLU LIKE SYMPTOMS? NO . COUGH NO . INTEGUMENTARY: DO YOU HAVE ANY RASHES OR OPEN SORES? NO . ALLERGIC/IMMUNO: ARE YOU ALLERGIC TO IV DYE? NO . ANY NEW ALLERGIES? NO . PSYCHIATRIC: DO YOU HAVE THOUGHTS OF HURTING YOURSELF OR SOMEONE ELSE? NO . ARE YOU ABUSED, NEGLECTED, OR IN AN UNSAFE ENVIRONMENT? NO . ENDOCRINOLOGY: ARE YOU DIABETIC? NO . OTHER: DO YOU NEED ANY PRESCRIPTIONS? YES . IF YES, PLEASE LIST: ____OXCONTIN, OXYCODONE . ANY NEW PROBLEMS WITH YOUR MEDICATIONS? YES . WHEN DID YOU LAST EAT? ____ . WHEN DID YOU LAST DRINK? ____ . WHAT DID YOU LAST DRINK? ____ . NAME OF PERSON DRIVING YOU HOME? ____ . DO YOU HAVE ANY OTHER QUESTIONS OR CONCERNS NO . VITAL SIGNS WT 192.2 LBS, HT 71 IN, BMI 26.80 INDEX, BP 113/74 MM HG, HR 85 /MIN, RR 18 /MIN, TEMP 97.0 F, OXYGEN SAT % 96%, SAFE IN ENV? (Y/N) YES, NA INITIALS AW 1556, REVIEWED BY: ESTHER. EXAMINATION GENERAL EXAMINATION: PATIENT IS ALERT O X 3 AND COOPERATIVE. TENDERNESS ON BOTH SIDES OF THE NECK. PAIN INCREASES OVER THE CERVICAL FACET JOINTS WITH EXTENSION AND LATERAL ROTATION OF THE NECK. CT SCAN OF THE CERVICAL SPINE DONE ON 11/07/2018 SHOWS A FUSION AT C5-C6, LAMINECTOMY CHANGES, DEGENERATIVE DISC CHANGES AT MULTIPLE LEVELS. ASSESSMENTS SPONDYLOSIS OF CERVICAL REGION WITHOUT MYELOPATHY OR RADICULOPATHY - M47.812 (PRIMARY) TREATMENT SPONDYLOSIS OF CERVICAL REGION WITHOUT MYELOPATHY OR RADICULOPATHY CLINICAL NOTES: WE DISCUSSED SEVERAL ISSUES WITH MR. SIU'S PAIN MANAGEMENT CASE. DUE TO THE CERVICAL SPONDYLOSIS, I WOULD LIKE TO MOVE FORWARD WITH A THERAPEUTIC CERVICAL FACET BLOCK AT THIS TIME. WE DISCUSSED THE BENEFITS, RISKS, AND ALTERNATIVES OF THE INJECTION AND THE PATIENT WOULD LIKE TO PROCEED. THE PATIENT HAS A HISTORY OF SLEEPINESS AND FATIGUE THAT COULD BE A RESULT OF REDUCED TESTOSTERONE LEVELS DUE TO LONG-TERM OPIOID USE. THEREFORE, I AM ORDERING FOR A TESTOSTERONE LEVEL TEST TO BE DONE. THE PATIENT WILL FOLLOW UP WITH HIS PRIMARY CARE PHYSICIAN, DR. HUNT, TO GO OVER THE TESTOSTERONE TEST RESULTS. I AM ORDERING FOR A LUMBAR CT TO BE DONE TO FIND WHERE THE PAIN IS COMING FROM AND ALSO BECAUSE THE PATIENT CANNOT HAVE AN MRI DUE TO HAVING A PUMP. I WAS WITH THE PATIENT IN THE ROOM OVER 30 MINUTES MORE THAN HALF OF THE TIME WAS DISCUSSING ALTERNATIVES OF HIS MANAGEMENT, HIS MEDICATIONS, CLARIFYING QUESTIONS WITH THE PATIENT .THE PATIENT WILL FOLLOW UP WITH NURSE PRACTITIONER SHAWNA IN ONE WEEK. INSTRUCTIONS WERE GIVEN, QUESTIONS WERE ANSWERED, PATIENT REPORTS UNDERSTANDING AND AGREES WITH THE PLAN. I, MILA PAIGE, DOCUMENTED THE ABOVE INFORMATION ACTING A SCRIBE FOR DR. MEDINA. I HAVE REVIEWED THE ABOVE DOCUMENT, WRITTEN BY MILA SANDERSIBJustin AND I VERIFY THAT IT IS ACCURATE. . OTHERS REFILL OXYCONTIN TABLET ER 12 HOUR ABUSE-DETERRENT, 20 MG, 1 TABLET, ORALLY, EVERY 12 HRS, 14 DAYS, 28 TABLET, REFILLS 0 REFILL OXYCODONE HCL TABLET, 15 MG, 1 TABLET NEEDED, ORALLY, EVERY 6 HRS MDD 3, 14 DAYS, 42, REFILLS 0 PREVENTIVE MEDICINE PAIN CLINIC TEACHING: PROCEDURE TEACHING INFORMATIONAL HANDOUT FOR CERVICAL THERAPEUTIC FACET BLOCK PRINTED AND REVIEWED WITH PATIENT. PRE PROCEDURE INSTRUCTIONS REVIEWED. PATIENT VERBALIZES UNDERSTANDING. LAS. PROCEDURE CODES FA211 ESTABILISHED PATIENT [facility] CHARGE [id number] CURRENT MEDS W/DOSAGES DOCUMENTED G8730 PAIN ASSESS POS TOOL F/U PLAN DOC DISPOSITION & COMMUNICATION FOLLOW UP 1 WEEK (REASON: F/U WITH GENERAL OFFICE DISPATCHER FOR MEDS, CERVICAL FB/LUMBAR CT ORDER, TESTERONE LEVELS ORDER) ELECTRONICALLY SIGNED BY AFSANEH MEDINA MD, MD ON 11/19/2018 AT 12:56 PM EDT DISCLAIMER : THIS IS A VISIT SUMMARY EXTRACTED FROM THE [employer] CHART. IT IS NOT A COPY OF THE [employer] PROGRESS NOTE. MTDD
== END ==
LOC: M PAIN 15:45
PROVIDERS: ATTEND Anesthesiology
DX: M47.812 Spondylosis without myelopathy or radiculopathy, cervical region (principal); G89.29 Other chronic pain; Z79.891 Long term (current) use of opiate analgesic; Z79.899 Other long term (current) drug therapy; Z87.891 Personal history of nicotine dependence; Z91.030 Bee allergy status

== ENCOUNTER → 2018-11-12 | Outpatient (CLI) | payer MEDICARE, OTHER ==
--- NOTE | 2018-11-12 16:58 | REP ---
ABDOMEN, ONE VIEW: HISTORY: Kidney stone. The left lateral abdomen is not seen in the present radiograph. A small amount of air is present in the intestine. There are no air fluid levels or dilated loops of There is no definite nephrolithiasis. IMPRESSION: Nonspecific bowel gas pattern. Electronically Signed by Tiburcio Jones MD 11/12/2018 05:08 P
== END ==
LOC: M SMT 14:14
PROVIDERS: ATTEND Urology
DX: R30.0 Dysuria (principal); N20.0 Calculus of kidney

== ENCOUNTER → 2018-11-18 | Outpatient (CLI) | payer MEDICARE, BC, OTHER ==
--- NOTE | 2018-11-25 09:26 | REP ---
CT LUMBAR SPINE WITHOUT CONTRAST: REASON FOR EXAM: Chronic lumbar pain. COMPARISON: CT abdomen and pelvis without contrast of 11/02/2018. TECHNIQUE: Axial CT of the lumbar spine was performed without contrast. Bone reformats were provided in the axial, coronal, and sagittal planes. There were no soft tissue reformats in the sagittal or coronal planes. FINDINGS: There is 3 mm retrolisthesis of L5 on S1 and 2 mm anterolisthesis of L4 on L5. There is no spondylosis. There is mild dextrocurvature of the lumbar spine. There is mild wedging deformity of the T12 superior endplate. The remaining vertebral body heights are maintained. There is disc space narrowing with vacuum and disc phenomenon at L5-S1. There is focal sclerosis within the superior endplate of L3, consistent with Schmorl's node deformity. There is a catheter within the spinal canal spanning from the level of L3 to the level of S1-S2, which is disconnected from the presumed pain pump reservoir seen within the left-sided lower abdomen on the buffer copper view. There is also additional catheter within the posterior paraspinal muscles on the left extending to the L2-L3 spinous processes, which is also in discontinuity with the intrathecal catheter. There are sclerotic changes at the L5-S1 endplates. There is an 8 mm lucency within the left iliac bone adjacent to the sacroiliac joint with partially sclerotic margin, which is nonspecific. There is no fracture or dislocation. There is mild disc bulge at L2-L3. A lack of sagittal soft tissue reformats limits the evaluation of the neural foramina. There is anterolisthesis with uncovering of the disc at L4-L5 and disc bulge with bilateral facet arthropathy and significant narrowing of the spinal canal. There is bilateral neural foraminal narrowing, worse on the right. At L5-S1, there is disc protrusion centrally with effacement of the ventral thecal sac. There is bilateral facet arthropathy. These findings result in significant narrowing of the spinal canal in transverse dimension. There is bilateral neural foraminal narrowing, worse on the right. Note is made of similar stranding of the retroperitoneal fat as seen on the prior. The kidneys are partially imaged. Note is made of right renal calculi and hypo-attenuating left renal lesions, similar to prior. IMPRESSION: 1. No fracture or dislocation. 2. Grade 1 anterolisthesis of L4 on L5 and grade 1 retrolisthesis of L5 on S1 with mild dextrocurvature of the lumbar spine. 3. Lower lumbar spondylosis at L4-L5 and L5-S1 with bilateral facet arthropathy and neural foraminal narrowing, worse on the right. Findings worse at L5-S1 with disc protrusion centrally. Study is limited secondary to lack of soft tissue windows in the saggital plane. Unreviewed
== END ==
LOC: M LAB 12:40
PROVIDERS: ATTEND Anesthesiology
DX: M47.896 Other spondylosis, lumbar region (principal); F11.982 Opioid use, unspecified with opioid-induced sleep disorder; M47.897 Other spondylosis, lumbosacral region; M51.27 Other intervertebral disc displacement, lumbosacral region

== ENCOUNTER → 2018-11-25 | Outpatient (CLI) | payer MEDICARE, OTHER ==
--- NOTE | 2018-11-26 23:32 | ECWPNPC ---
PATIENT NAME: DAVE SIU : 1950 GENDER: MALE VISIT DATE: 11/25/2018 DISCHARGE DATE: 11/25/18 1113 VISIT LOCKED DATE TIME: PHYSICIAN: SHAWNA REES RESOURCE: SHAWNA REES REASON FOR APPOINTMENT 1. 2 WK F/U MEDS PER DR Escalante HISTORY OF PRESENT ILLNESS HISTORY OF PRESENT ILLNESS: PAIN THE PATIENT DESCRIBES THE PAIN... 68 YEAR OLD MALE IN FOR FOLLOW UP POST CERVICAL CT. HE RATES HIS PAIN AT A 1/10 CURRENTLY AND DESCRIBES IT SHOOTING. HE DOES ADMIT TO TAKING 2 15 MG OXYCODONE AT ONCE SOMETIMES BUT HE DENIES GOING OVER THE MDD OF 3 IN A DAY. FALL RISK SCREENING: SCREENING :NO FALLS REPORTED IN THE LAST YEAR CURRENT MEDICATIONS TAKING MODAFINIL 200 MG TABLET 1 TABLET IN THE MORNING ORALLY ONCE A DAY TAKING EMSAM 9 MG/24HR PATCH 24 HOUR 1 PATCH TO SKIN TRANSDERMAL ONCE A DAY TAKING VITAMIN D 1000 UNIT CAPSULE 1 CAPSULE ORALLY ONCE A DAY TAKING FLOMAX 0.4 MG CAPSULE EXTENDED RELEASE 24 HOUR 1 CAPSULE 30 MINUTES AFTER THE SAME MEAL EACH DAY ORALLY ONCE A DAY TAKING BACLOFEN 10 MG TABLET 1 TABLET WITH FOOD OR MILK ORALLY BID TAKING OXYCONTIN 20 MG TABLET ER 12 HOUR ABUSE-DETERRENT 1 TABLET ORALLY EVERY 12 HRS TAKING OXYCODONE HCL 15 MG TABLET 1 TABLET NEEDED ORALLY EVERY 6 HRS MDD 3 NOT-TAKING OXYBUTYNIN CHLORIDE 5 MG TABLET 1 TABLET ORALLY EVERY 8 HOURS NEEDED FOR BLADDER SPASMS NOT-TAKING BACTRIM DS 800-160 MG TABLET 1 TABLET FOR YOUR CYSTOSCOPY TODAY ORALLY DIRECTED MEDICATION LIST REVIEWED AND RECONCILED WITH THE PATIENT PAST MEDICAL HISTORY MAJOR DEPRESSIVE DISORDER, SINGLE EPISODE, SENSORINEURAL HEARING LOSS BENIGN PROSTATIC HYPERTROPHY VITAMIN D DEFICEINCY CHRONIC PAIN SNDROME CERVICAL SPONDLOSIS RENAL CYSTS HERNIA RIGHT INGUINAL = DR. PHAN NECK AND BACK PAIN ALLERGIES BEE STING: ANAPHYLAXIS - ALLERGY SURGICAL HISTORY CERVICAL LAMINECTOMY 1989 INSERTION OF SPINAL PUMP ANTERIOR CERVICAL DECOMPRESSION AND FUSION C5-6 2013 MORPHINE PUMP TONSILS KIDNEY STENT 10/2018 RIGHT HERNIA REPAIR 10/2018 CYSTO RIGHT STENT REMOVAL 11/12/2018 FAMILY HISTORY FATHER: , DEMENTIA MOTHER: , STROKE SIBLINGS: , SISTER:COPD, ASTHMA, [place], POSSIBLY 1 KIDNEY, GALLBLADDER REMOVED. MAJOR NECK AND BACK SX. BROTHER: MAJOR BACK SX SON(S): ALIVE DAUGHTER(S): ALIVE, KIDNEY STONES 1 BROTHER(S) , 1 SISTER(S) . 2DAUGHTER(S) - HEALTHY. FATHER PROSTATE CANCER. SOCIAL HISTORY GENERAL: TOBACCO USE ARE YOU A:FORMER SMOKER VAPS WITH NICOTINE HOW LONG HAS IT BEEN SINCE YOU LAST SMOKED?1-3 MONTHS OTHERS AT HOME: SPOUSE, IN-LAW(S). EDUCATION LEVEL OF EDUCATION: SOME COLLEGE DIET: REGULAR. LANGUAGE LANGUAGES SPOKEN:MARTINIQUAIS DOMESTIC VIOLENCE DO YOU FEEL SAFE IN YOUR ENVIRONMENT?YES BMI CARE GOAL FOLLOW-UP PFS REFERRAL NEEDED? NO, CLERGY REFERRAL NEEDED? NO, PUBLIC HEALTH REFERRAL NEEDED? NO, WAS THE PROVIDER NOTIFIED OF ANY PERTINENT INFO? NO, HAS THE PATIENT BEEN EDUCATED REGARDING HIS/HER PLAN OF CARE? YES, HAS THE PATIENT BEEN EDUCATED REGARDING PAIN, THE RISK FOR PAIN, THE IMPORTANCE OF EFFECTIVE PAIN MANAGEMENT, AND THE PAIN ASSESSMENT PROCESS? YES. RECREATIONAL DRUG USE DRUG USE?NO EXERCISE: NO REGULAR EXERCISE. LEARNING BARRIERS / SPECIAL NEEDS BARRIERS TO LEARNING?NO HEARING IMPAIRED?YES BILATERAL TINNITIS VISION IMPAIRED?YES MACULAR DEGENERATION UNSURE IF BOTH EYES COGNITIVELY IMPAIRED?NO :HEARING AIDES :CORRECTIVE LENSES READINESS TO LEARN?YES LEARNING PREFERENCES?NO LEARNING CAPABILITIES PRESENT?YES EMOTIONAL BARRIERS?NO SPECIAL DEVICES?NO CHIP BIN CONVEYOR TENDER NEEDED?NO PAIN CLINIC PFS, CLERGY, PUBLIC HEALTH REFERRALS HAS THE PATIENT BEEN EDUCATED REGARDING HIS/HER PLAN OF CARE?YES HAS THE PATIENT BEEN EDUCATED REGARDING PAIN, THE RISK FOR PAIN, THE IMPORTANCE OF EFFECTIVE PAIN MANAGEMENT, AND THE PAIN ASSESSMENT PROCESS?YES LATEX QUESTIONNAIRE LATEX ALLERGY : HAVE YOU EVER DEVELOPED ANY TYPE OF REACTION AFTER HANDLING LATEX PRODUCTS SUCH RUBBER GLOVES, CONDOMS, DIAPHRAGMS, BALLOONS, SOCKS, OR UNDERWEAR?NO LATEX ALLERGY : HAVE YOU EVER DEVELOPED ANY TYPE OF REACTION DURING OR AFTER DENTAL APPOINTMENT, VAGINAL/RECTAL EXAMINATION, SURGICAL PROCEDURE, OR ANY OTHER EXPOSURE?NO LATEX RISK : HAVE YOU EVER HAD ANY DIFFICULTY BREATHING OR HIVES AFTER EATING OR HANDLING ANY FRUITS, OR VEGETABLES; SUCH KIWI, BANANAS, STONE FRUITS, OR CHESTNUTSNO LATEX RISK : DO YOU HAVE A PREVIOUS PERSONAL HISTORY OF MORE THAN NINE SURGERIES, SPINA BIFIDA, OR REPEATED CATHERIZATIONS? NO LATEX RISK : ARE YOU FREQUENTLY EXPOSED TO LATEX PRODUCTS IN YOUR OCCUPATION?YES DATE ASKED : 11/25/2018 CAFFEINE CAFFEINE USE?YES ONLY ON OCCASSION ADVANCE DIRECTIVE ADVANCE DIRECTIVE DISCUSSED WITH PATIENT:YES 11/25/18 PT STATES HE HAS HCP- DAYANARA Anderson [phone] SYNAGOGUE [id number] PRESYBETERIAN NO TEMPLE BELIEFS THAT WOULD IMPACT HEALTH CARE. MARITAL STATUS: . ALCOHOL SCREENING DID YOU HAVE A DRINK CONTAINING ALCOHOL IN THE PAST YEAR?YES HOW OFTEN DID YOU HAVE SIX OR MORE DRINKS ON ONE OCCASION IN THE PAST YEAR?NEVER (0 POINTS) HOW MANY DRINKS DID YOU HAVE ON A TYPICAL DAY WHEN YOU WERE DRINKING IN THE PAST YEAR?1 OR 2 (0 POINTS) HOW OFTEN DID YOU HAVE A DRINK CONTAINING ALCOHOL IN THE PAST YEAR?MONTHLY OR LESS (1 POINT) POINTS1 INTERPRETATIONNEGATIVE OCCUPATION: MUSICAN. SEXUAL HX HAD SEX IN THE LAST 12 MONTHS (VAGINAL, ORAL, OR ANAL)?YES WITHWOMEN ONLY USE PROTECTION?NO HAVE YOU EVER HAD AN STD?YES OTHER?YES HOSPITALIZATION/MAJOR DIAGNOSTIC PROCEDURE SURGERIES KIDNEY STONE = PASSED ON OWN 1990 REVIEW OF SYSTEMS REVIEWED BY: PROVIDER: JEFFERY REES CLAIMS SERVICE REPRESENTATIVE-C . CONSTITUTIONAL: ANY CHANGE IN YOUR MEDICAL CONDITION? NO . CHILLS NO . FEVER NO . INFECTION: DO YOU HAVE NEW INFECTIONS? NO . DO YOU HAVE HISTORY OF MRSA? NO . MUSCULOSKELETAL: ANY NEW PATTERNS OF PAIN OR NUMBNESS? NO . GASTROENTEROLOGY: ANY NEW CHANGE IN BOWEL CONTROL? NO . GENITOURINARY: ANY NEW CHANGE IN BLADDER CONTROL? NO . IS THERE A CHANCE YOU COULD BE ? NO . HEMATOLOGY/LYMPH: DO YOU TAKE ANY BLOOD THINNERS? (FOR EXAMPLE- COUMADIN, PLAVIX, AGGRENOX, PLATEL, PRADAXA, OR XARELTO) NO . WHEN WAS YOUR LAST DOSE? DATE: TIME: . NEUROLOGY: HAVE YOU FALLEN IN THE PAST 12 MONTHS? NO . ANY NEW EXTREMITY NUMBNESS OR WEAKNESS? NO . CARDIOLOGY: DO YOU HAVE A PACEMAKER OR DEFIBRILLATOR? NO . RESPIRATORY: HAVE YOU BEEN SICK IN THE PAST WEEK? NO . FEVER NO . FLU LIKE SYMPTOMS? NO . COUGH NO . INTEGUMENTARY: DO YOU HAVE ANY RASHES OR OPEN SORES? NO . ALLERGIC/IMMUNO: ARE YOU ALLERGIC TO IV DYE? NO . ANY NEW ALLERGIES? NO . PSYCHIATRIC: DO YOU HAVE THOUGHTS OF HURTING YOURSELF OR SOMEONE ELSE? NO . ARE YOU ABUSED, NEGLECTED, OR IN AN UNSAFE ENVIRONMENT? NO . ENDOCRINOLOGY: ARE YOU DIABETIC? NO . OTHER: DO YOU NEED ANY PRESCRIPTIONS? YES . IF YES, PLEASE LIST: OYXONTIN AND OYXCODONE . ANY NEW PROBLEMS WITH YOUR MEDICATIONS? YES SOME TIMES THE 15 MGS OF OYXCODONE ISN'T ENOUGH AND HE TAKES 30 MGS . WHEN DID YOU LAST EAT? ____ . WHEN DID YOU LAST DRINK? ____ . WHAT DID YOU LAST DRINK? ____ . NAME OF PERSON DRIVING YOU HOME? ____ . DO YOU HAVE ANY OTHER QUESTIONS OR CONCERNS YES WOULD LIKE XRAY RESULTS . VITAL SIGNS WT 193.0 LBS, HT 71 IN, BMI 26.92 INDEX, BP 108/68 MM HG, HR 78 /MIN, RR 18 /MIN, TEMP 96.9 F, OXYGEN SAT % 97%, SAFE IN ENV? (Y/N) Y, NA INITIALS AW 1027, REVIEWED BY: ROXANNE. EXAMINATION GENERAL EXAMINATION: GENERALNO ACUTE DISTRESS, WELL NOURISHED AND HYDRATED. PSYCHAPPROPRIATE MOOD AND AFFECT . LUNGS:CLEAR TO AUSCULTATION BILATERALLY, NO WHEEZES, RHONCHI, RALES. HEART:NO MURMURS, REGULAR RATE AND RHYTHM. DIAGNOSTIC TESTS REVIEWEDCT REVIEWED WITH PATIENT . ASSESSMENTS SPONDYLOSIS OF CERVICAL REGION WITHOUT MYELOPATHY OR RADICULOPATHY - M47.812 (PRIMARY) TREATMENT SPONDYLOSIS OF CERVICAL REGION WITHOUT MYELOPATHY OR RADICULOPATHY CLINICAL NOTES: 68 YEAR OLD MALE IN FOR FOLLOW UP POST CT. GIVEN PRESENTING SYMPTOMS AND RESULTS OF PHYSICAL EXAMINATION RECOMMENDED CONTINUATION OF CURRENT MEDICATION REGIMEN AND FOLLOW UP POST PROCEDURE. PATIENT HAS EXPRESSED UNDERSTANDING OF AND WAS IN AGREEMENT WITH TREATMENT PLAN. GIVEN TIME TO ASK QUESTIONS AND EXPRESS CONCERNS. , ISTOP REGISTRY REVIEWED AND DEMONSTRATES COMPLLIANCE. (REF #[id number] ) BRINGS IN MEDICATIONS WHICH IS APPROPRIATE FOR WHAT WAS DISPENSED. RECENT URINE TOXICOLOGY REVIEWED. NO UNAUTHORIZED MEDICATIONS. NO ILLICIT SUBSTANCES AND PRESCRIBED MEDICATIONS WERE PRESENT. OTHERS REFILL OXYCONTIN TABLET ER 12 HOUR ABUSE-DETERRENT, 20 MG, 1 TABLET, ORALLY, EVERY 12 HRS, 30 DAYS, 60 TABLET REFILL OXYCODONE HCL TABLET, 15 MG, 1 TABLET NEEDED, ORALLY, EVERY 6 HRS MDD 3, 30 DAYS, 90 PROCEDURE CODES FA211 ESTABILISHED PATIENT [facility] CHARGE DISPOSITION & COMMUNICATION FOLLOW UP POST PROCEDURE (REASON: LAKESHA ) ELECTRONICALLY SIGNED BY DAVINA DURHAM ON 11/26/2018 AT 08:56 AM EDT DISCLAIMER : THIS IS A VISIT SUMMARY EXTRACTED FROM THE [email or web address] CHART. IT IS NOT A COPY OF THE [email or web address] PROGRESS NOTE. RUPERT
== END ==
LOC: M PAIN 10:15
PROVIDERS: ATTEND Family Medicine
DX: M47.812 Spondylosis without myelopathy or radiculopathy, cervical region (principal); Z86.59 Personal history of other mental and behavioral disorders; E55.9 Vitamin D deficiency, unspecified; F17.290 Nicotine dependence, other tobacco product, uncomplicated; Z91.030 Bee allergy status; Z79.891 Long term (current) use of opiate analgesic; Z79.899 Other long term (current) drug therapy

== ENCOUNTER → 2018-12-31 | Outpatient (CLI) | payer MEDICARE, OTHER ==
[~2018-12-31] MED LIST changes: +BUPIVACAINE HCL 0.25% 30 ML VIAL As Ordered ONE; +ISOVUE-M 300 61% 15ML VIAL (Q9967) As Ordered ONE; +LIDOCAINE 1% SDV INJ 30 ML VIAL As Ordered ONE; +TRIAMCINOLONE ACETONIDE SUSP 40 MG/ML VIAL (J3301) As Ordered ONE; +diazePAM 5 MG TAB As Ordered ONE
--- NOTE | 2018-12-31 15:22 | REP ---
C-ARM VIEW CERVICAL SPINE: CLINICAL HISTORY: Pain. Single C-arm view cervical spine performed during bilateral facet injection by Dr. Alicia. Hamilton are seen overlying the bilateral cervical facets. Metallic plate and screws overlie the lower cervical spine region. 28 seconds fluoroscopy time utilized. Electronically Signed by Marcio Olivarez MD 12/31/2018 04:01 P
--- NOTE | 2019-01-11 01:37 | ECWPNPC ---
PATIENT NAME: DAVE SIU : 1950 GENDER: MALE VISIT DATE: 12/31/2018 DISCHARGE DATE: 12/31/18 1335 VISIT LOCKED DATE TIME: PHYSICIAN: AFSANEH MEDNIA MD RESOURCE: AFSANEH MEDINA MD REASON FOR APPOINTMENT 1. BILAT CERVICAL FB THERAPEUTIC HISTORY OF PRESENT ILLNESS HISTORY OF PRESENT ILLNESS: PAIN THE PATIENT DESCRIBES THE PAIN... FALL RISK SCREENING: SCREENING :NO FALLS REPORTED IN THE LAST YEAR CURRENT MEDICATIONS TAKING MODAFINIL 200 MG TABLET 1 TABLET IN THE MORNING ORALLY ONCE A DAY TAKING EMSAM 9 MG/24HR PATCH 24 HOUR 1 PATCH TO SKIN TRANSDERMAL ONCE A DAY TAKING VITAMIN D 1000 UNIT CAPSULE 1 CAPSULE ORALLY ONCE A DAY TAKING FLOMAX 0.4 MG CAPSULE EXTENDED RELEASE 24 HOUR 1 CAPSULE 30 MINUTES AFTER THE SAME MEAL EACH DAY ORALLY ONCE A DAY TAKING BACLOFEN 10 MG TABLET 1 TABLET WITH FOOD OR MILK ORALLY BID, NOTES: 12/30/18 TAKING OXYCONTIN 20 MG TABLET ER 12 HOUR ABUSE-DETERRENT 1 TABLET ORALLY EVERY 12 HRS, NOTES: 12/31/18 AM TAKING OXYCODONE HCL 15 MG TABLET 1 TABLET NEEDED ORALLY EVERY 6 HRS MDD 3, NOTES: 12/31/18 AM NOT-TAKING OXYBUTYNIN CHLORIDE 5 MG TABLET 1 TABLET ORALLY EVERY 8 HOURS NEEDED FOR BLADDER SPASMS NOT-TAKING BACTRIM DS 800-160 MG TABLET 1 TABLET FOR YOUR CYSTOSCOPY TODAY ORALLY DIRECTED MEDICATION LIST REVIEWED AND RECONCILED WITH THE PATIENT PAST MEDICAL HISTORY MAJOR DEPRESSIVE DISORDER, SINGLE EPISODE, SENSORINEURAL HEARING LOSS BENIGN PROSTATIC HYPERTROPHY VITAMIN D DEFICEINCY CHRONIC PAIN SNDROME CERVICAL SPONDLOSIS RENAL CYSTS HERNIA RIGHT INGUINAL = DR. PHAN NECK AND BACK PAIN ALLERGIES BEE STING: ANAPHYLAXIS - ALLERGY SURGICAL HISTORY CERVICAL LAMINECTOMY 1989 INSERTION OF SPINAL PUMP ANTERIOR CERVICAL DECOMPRESSION AND FUSION C5-6 2013 MORPHINE PUMP TONSILS KIDNEY STENT 10/2018 RIGHT HERNIA REPAIR 10/2018 CYSTO RIGHT STENT REMOVAL 11/12/2018 FAMILY HISTORY FATHER: , DEMENTIA MOTHER: , STROKE SIBLINGS: , SISTER:COPD, ASTHMA, [place], POSSIBLY 1 KIDNEY, GALLBLADDER REMOVED. MAJOR NECK AND BACK SX. BROTHER: MAJOR BACK SX SON(S): ALIVE DAUGHTER(S): ALIVE, KIDNEY STONES 1 BROTHER(S) , 1 SISTER(S) . 2DAUGHTER(S) - HEALTHY. FATHER PROSTATE CANCER. SOCIAL HISTORY GENERAL: TOBACCO USE ARE YOU A:FORMER SMOKER VAPS WITH NICOTINE HOW LONG HAS IT BEEN SINCE YOU LAST SMOKED?1-3 MONTHS OTHERS AT HOME: SPOUSE, IN-LAW(S). EDUCATION LEVEL OF EDUCATION: SOME COLLEGE DIET: REGULAR. LANGUAGE LANGUAGES SPOKEN:SWISS DOMESTIC VIOLENCE DO YOU FEEL SAFE IN YOUR ENVIRONMENT?YES BMI CARE GOAL FOLLOW-UP PFS REFERRAL NEEDED? NO, CLERGY REFERRAL NEEDED? NO, PUBLIC HEALTH REFERRAL NEEDED? NO, WAS THE PROVIDER NOTIFIED OF ANY PERTINENT INFO? NO, HAS THE PATIENT BEEN EDUCATED REGARDING HIS/HER PLAN OF CARE? YES, HAS THE PATIENT BEEN EDUCATED REGARDING PAIN, THE RISK FOR PAIN, THE IMPORTANCE OF EFFECTIVE PAIN MANAGEMENT, AND THE PAIN ASSESSMENT PROCESS? YES. RECREATIONAL DRUG USE DRUG USE?NO EXERCISE: NO REGULAR EXERCISE. LEARNING BARRIERS / SPECIAL NEEDS BARRIERS TO LEARNING?NO HEARING IMPAIRED?YES BILATERAL TINNITIS VISION IMPAIRED?YES MACULAR DEGENERATION UNSURE IF BOTH EYES COGNITIVELY IMPAIRED?NO :HEARING AIDES :CORRECTIVE LENSES READINESS TO LEARN?YES LEARNING PREFERENCES?NO LEARNING CAPABILITIES PRESENT?YES EMOTIONAL BARRIERS?NO SPECIAL DEVICES?NO ENVIRONMENTAL SERVICES AIDE NEEDED?NO PAIN CLINIC PFS, CLERGY, PUBLIC HEALTH REFERRALS HAS THE PATIENT BEEN EDUCATED REGARDING HIS/HER PLAN OF CARE?YES HAS THE PATIENT BEEN EDUCATED REGARDING PAIN, THE RISK FOR PAIN, THE IMPORTANCE OF EFFECTIVE PAIN MANAGEMENT, AND THE PAIN ASSESSMENT PROCESS?YES LATEX QUESTIONNAIRE LATEX ALLERGY : HAVE YOU EVER DEVELOPED ANY TYPE OF REACTION AFTER HANDLING LATEX PRODUCTS SUCH RUBBER GLOVES, CONDOMS, DIAPHRAGMS, BALLOONS, SOCKS, OR UNDERWEAR?NO LATEX ALLERGY : HAVE YOU EVER DEVELOPED ANY TYPE OF REACTION DURING OR AFTER DENTAL APPOINTMENT, VAGINAL/RECTAL EXAMINATION, SURGICAL PROCEDURE, OR ANY OTHER EXPOSURE?NO DATE ASKED : 11/25/2018 LATEX RISK : HAVE YOU EVER HAD ANY DIFFICULTY BREATHING OR HIVES AFTER EATING OR HANDLING ANY FRUITS, OR VEGETABLES; SUCH KIWI, BANANAS, STONE FRUITS, OR CHESTNUTSNO LATEX RISK : DO YOU HAVE A PREVIOUS PERSONAL HISTORY OF MORE THAN NINE SURGERIES, SPINA BIFIDA, OR REPEATED CATHERIZATIONS? NO LATEX RISK : ARE YOU FREQUENTLY EXPOSED TO LATEX PRODUCTS IN YOUR OCCUPATION?YES CAFFEINE CAFFEINE USE?YES ONLY ON OCCASSION ADVANCE DIRECTIVE ADVANCE DIRECTIVE DISCUSSED WITH PATIENT:YES PT STATES HE HAS HCP- DAYANARA Anderson [phone] BUDDHIST [id number] TAOISM NO MORAVIAN BELIEFS THAT WOULD IMPACT HEALTH CARE. MARITAL STATUS: . ALCOHOL SCREENING DID YOU HAVE A DRINK CONTAINING ALCOHOL IN THE PAST YEAR?YES HOW OFTEN DID YOU HAVE SIX OR MORE DRINKS ON ONE OCCASION IN THE PAST YEAR?NEVER (0 POINTS) HOW MANY DRINKS DID YOU HAVE ON A TYPICAL DAY WHEN YOU WERE DRINKING IN THE PAST YEAR?1 OR 2 (0 POINTS) HOW OFTEN DID YOU HAVE A DRINK CONTAINING ALCOHOL IN THE PAST YEAR?MONTHLY OR LESS (1 POINT) POINTS1 INTERPRETATIONNEGATIVE OCCUPATION: MUSICAN. SEXUAL HX HAD SEX IN THE LAST 12 MONTHS (VAGINAL, ORAL, OR ANAL)?YES WITHWOMEN ONLY USE PROTECTION?NO HAVE YOU EVER HAD AN STD?YES OTHER?YES HOSPITALIZATION/MAJOR DIAGNOSTIC PROCEDURE SURGERIES KIDNEY STONE = PASSED ON OWN 1990 REVIEW OF SYSTEMS REVIEWED BY: PROVIDER: . CONSTITUTIONAL: ANY CHANGE IN YOUR MEDICAL CONDITION? NO . CHILLS NO . FEVER NO . INFECTION: DO YOU HAVE NEW INFECTIONS? NO . DO YOU HAVE HISTORY OF MRSA? NO . MUSCULOSKELETAL: ANY NEW PATTERNS OF PAIN OR NUMBNESS? NO . GASTROENTEROLOGY: ANY NEW CHANGE IN BOWEL CONTROL? NO . GENITOURINARY: ANY NEW CHANGE IN BLADDER CONTROL? NO . IS THERE A CHANCE YOU COULD BE ? NO . HEMATOLOGY/LYMPH: DO YOU TAKE ANY BLOOD THINNERS? (FOR EXAMPLE- COUMADIN, PLAVIX, AGGRENOX, PLATEL, PRADAXA, OR XARELTO) NO . WHEN WAS YOUR LAST DOSE? DATE: TIME: . NEUROLOGY: HAVE YOU FALLEN IN THE PAST 12 MONTHS? NO . ANY NEW EXTREMITY NUMBNESS OR WEAKNESS? NO . CARDIOLOGY: DO YOU HAVE A PACEMAKER OR DEFIBRILLATOR? NO . RESPIRATORY: HAVE YOU BEEN SICK IN THE PAST WEEK? NO . FEVER NO . FLU LIKE SYMPTOMS? NO . COUGH NO . INTEGUMENTARY: DO YOU HAVE ANY RASHES OR OPEN SORES? NO . ALLERGIC/IMMUNO: ARE YOU ALLERGIC TO IV DYE? NO . ANY NEW ALLERGIES? NO . PSYCHIATRIC: DO YOU HAVE THOUGHTS OF HURTING YOURSELF OR SOMEONE ELSE? NO . ARE YOU ABUSED, NEGLECTED, OR IN AN UNSAFE ENVIRONMENT? NO . ENDOCRINOLOGY: ARE YOU DIABETIC? NO . OTHER: DO YOU NEED ANY PRESCRIPTIONS? NO . IF YES, PLEASE LIST: ____ . ANY NEW PROBLEMS WITH YOUR MEDICATIONS? NO . WHEN DID YOU LAST EAT? 12/31/18 0300 . WHEN DID YOU LAST DRINK? 12/31/18 0900 . WHAT DID YOU LAST DRINK? 7 UP . NAME OF PERSON DRIVING YOU HOME? BEAU . DO YOU HAVE ANY OTHER QUESTIONS OR CONCERNS NO . VITAL SIGNS WT 199.8 LBS, HT 71 IN, BMI 27.86 INDEX, BP 115/77 MM HG, HR 77 /MIN, RR 18 /MIN, TEMP 97.8 F, OXYGEN SAT % 97%, NA INITIALS SC 11:17, REVIEWED BY: EM. ASSESSMENTS SPONDYLOSIS OF CERVICAL REGION WITHOUT MYELOPATHY OR RADICULOPATHY - M47.812 (PRIMARY) TREATMENT SPONDYLOSIS OF CERVICAL REGION WITHOUT MYELOPATHY OR RADICULOPATHY [facility] FACET BLOCK (PAIN)[id number] PROCEDURES PN CERVICAL FACET BLOCK LOW BILATERAL CERVICAL PRE PROCEDURE DIAGNOSIS CERVICAL SPONDYLOSIS POST PROCEDURE DIAGNOSIS CERVICAL SPONDYLOSIS PROCEDURE RIGHT AND LEFT C3-C4 AND C4-C5 CERVICAL FACET BLOCK THERAPEUTIC SURGEON DR. AFSANEH MEDINA MEDIA LIAISON OFFICER NONE ANESTHESIA LOCAL PRE PROCEDURE NOTE THE PATIENT HAS HISTORY OF CHRONIC CERVICAL PAIN. I EVALUATED THE PATIENT AND REVIEWED THE CHART. I WENT OVER THE RISKS, ALTERNATIVES, AND BENEFITS ASSOCIATED WITH THIS PROCEDURE. THE PATIENT WOULD LIKE TO PROCEED AND GIVE CONSENT TO PERFORMED THE PROCEDURE. THE PATIENT DENIES UNEXPLAINABLE WEIGHT LOSS, FEVER, CHILLS, OR NEW CHANGES IN URINARY OR BOWEL CONTROL. DESCRIPTION OF PROCEDURE THE PATIENT WAS BROUGHT TO THE PROCEDURE ROOM AND PLACED IN THE PRONE POSITION. THE CERVICOTHORACIC AREA WAS CLEANED WITH CHLORAPREP SOLUTION AND DRAPED ASEPTICALLY. THE PROCEDURE WAS DONE UNDER STERILE CONDITIONS. I CHECKED LATERALITY AND THE LEVEL WHERE THE PROCEDURE WAS GOING TO BE PERFORMED WITH THE PATIENT AND THE SUPPORTING STAFF AT THE MOMENT OF THE TIME OUT IN THE PROCEDURE ROOM. UNDER FLUOROSCOPIC GUIDANCE, TARGET POINT WAS SELECTED AT THE RIGHT AND LEFT C3-C4 AND RIGHT AND LEFT C4-C5 CERVICAL FACET JOINTS. TARGET POINTS WERE SELECTED AFTER LATERAL ROTATION AND TILT OF THE MAGNIFIER OF THE C-ARM. LIDOCAINE 0.5% WAS USED TO NUMB THE SKIN AND THE SUBCUTANEOUS TISSUE BELOW IT. SPINAL NEEDLES, 22-GAUGE, WERE ADVANCED UNDER FLUOROSCOPIC GUIDANCE AND FOLLOWING PATIENT FEEDBACK UNTIL THE TARGETS WERE TOUCHED. THE POSITION OF THE NEEDLES WAS VERIFIED WITH AP AND LATERAL VIEWS. AFTER PROPER POSITION OF THE NEEDLES WAS ACHIEVED, ISOVUE M DYE 30, 0.1 ML WAS INJECTED SHOWING SPREAD OF THE DYE. THEN A SOLUTION OF 0.9 ML OF BUPIVACAINE 0.125% AND KENALOG 10 MG WAS INJECTED AT EACH SITE. THERE WAS NO EVIDENCE OF BLOOD, PARESTHESIA OR CEREBROSPINAL FLUID DURING THE PROCEDURE. THE PATIENT WAS SENT TO THE RECOVERY ROOM. THE PATIENT WAS MOVING THE EXTREMITIES AND DOING WELL. THERE WAS NO COMPLICATION DURING THE PROCEDURE. FLUOROSCOPY TIME WAS 28 SECONDS POST PROCEDURE NOTE THE PATIENT WILL BE SEEN IN A FOLLOW UP IN THE NEXT FEW WEEKS. INSTRUCTIONS WERE GIVEN, QUESTIONS WERE ANSWERED, AND THE PATIENT EXPRESSED UNDERSTANDING AND AGREES WITH THE PLAN. I, QIAN MISHRA, DOCUMENTED THE ABOVE INFORMATION ACTING A SCRIBE FOR DR. MEDINA. I HAVE REVIEWED THE ABOVE DOCUMENT, WRITTEN BY QIAN ROGER AND I VERIFY THAT IT IS ACCURATE. PROCEDURE CODES 64095 INJ PARAVERT F JNT C/T 1 LEV, MODIFIERS: 50 [id number] INJ PARAVERT F JNT C/T 2 LEV, MODIFIERS: 50 [id number] RADXPS IN END [id number] PXD DISPOSITION & COMMUNICATION FOLLOW UP 3 WEEKS ELECTRONICALLY SIGNED BY AFSANEH MEDINA MD, MD ON 01/10/2019 AT 12:53 PM EDT DISCLAIMER : THIS IS A VISIT SUMMARY EXTRACTED FROM THE [employer] CHART. IT IS NOT A COPY OF THE [employer] PROGRESS NOTE. MTDD
== END ==
LOC: M PAIN 11:00
PROVIDERS: ATTEND Anesthesiology
DX: M47.812 Spondylosis without myelopathy or radiculopathy, cervical region (principal); F32.9 Major depressive disorder, single episode, unspecified; H90.5 Unspecified sensorineural hearing loss; N40.0 Benign prostatic hyperplasia without lower urinary tract symptoms; E55.9 Vitamin D deficiency, unspecified; G89.4 Chronic pain syndrome; N28.1 Cyst of kidney, acquired; Z98.1 Arthrodesis status; F17.290 Nicotine dependence, other tobacco product, uncomplicated; Z79.891 Long term (current) use of opiate analgesic; Z79.899 Other long term (current) drug therapy; Z91.030 Bee allergy status
CPT/HCPCS: 64490; 64491; J3301; Q9967

== ENCOUNTER → 2019-01-08 | Outpatient (CLI) | payer MEDICARE, BC, OTHER ==
[~2019-01-08] MED LIST changes: -BUPIVACAINE HCL 0.25% 30 ML VIAL As Ordered ONE; -ISOVUE-M 300 61% 15ML VIAL (Q9967) As Ordered ONE; -LIDOCAINE 1% SDV INJ 30 ML VIAL As Ordered ONE; -TRIAMCINOLONE ACETONIDE SUSP 40 MG/ML VIAL (J3301) As Ordered ONE; -diazePAM 5 MG TAB As Ordered ONE
[2019-01-08 17:44] LABS: BLOOD UREA NITROGEN 23 MG/DL (7-18); CALCIUM LEVEL 9.3 MG/DL (8.8-10.2); CARBON DIOXIDE LEVEL 29 MEQ/L (21-32); CHLORIDE LEVEL 105 MEQ/L (98-107); CREATININE FOR GFR 1.23 MG/DL (0.70-1.30); GLOMERULAR FILTRATION RATE > 60.0 (>49); GLUCOSE, FASTING 128 MG/DL (70-100); POTASSIUM SERUM 4.2 MEQ/L (3.5-5.1); SODIUM LEVEL 140 MEQ/L (136-145)
== END ==
LOC: M LAB 16:46
PROVIDERS: ATTEND Urology
DX: N28.89 Other specified disorders of kidney and ureter (principal)

== ENCOUNTER → 2019-01-09 | Outpatient (CLI) | payer MEDICARE, BC, OTHER ==
[~2019-01-09] MED LIST changes: +ISOVUE-370 76% 100ML VIAL (Q9967) As Ordered ONE
--- NOTE | 2019-01-09 20:12 | REP ---
CT of the abdomen, the pelvis is not included, without and with IV contrast for renal mass: Comparison is the abdomen pelvis CT without IV and oral contrast on 11/02/2018. Dual phase imaging is performed after IV contrast, initially during the arterial phase of enhancement and repeated at the renal cortical enhancement phase of enhancement. There are no solid renal masses on the right or the left. There are multiple bilateral Bosniak type 1 renal cysts, the largest on the right measuring 2.3 cm and the largest on the left measuring 2.1 cm. There is a 8 mm nonobstructive right renal calculus at the mid pole. There are a few other 3 mm nonobstructive right renal calculi at the cortical medullary junction in the upper lower poles. These may be vascular atheromatous calcific. There are several 3 mm nonobstructive renal calculi in the left kidney at the corticomedullary junction. These could be vascular atheromatous calcifications. There is no hydronephrosis or perinephric stranding on the right on the left. There is renal cortical scarring of the left kidney. This is unchanged. The visualized lung irvin are unremarkable. The hepatic parenchyma, gallbladder, pancreas, spleen, adrenals and abdominal aorta are unremarkable. There is no retroperitoneal adenopathy or mass. The visualized bowel loops and mesentery are unremarkable. There is a electronic power pack implanted in the subcutaneous fat of the abdominal left lower quadrant with a single lead extending circumferentially around the left wall of the abdomen into the lumbar thecal sac and extending inferiorly into the sacrum. This is unchanged. Impression: There are no solid renal masses. There are multiple bilateral Bosniak type 1 renal cysts. There are nonobstructive bilateral renal calculi. There is no hydronephrosis. There is chronic left renal cortical scarring. There is a left lower quadrant subcutaneous power pack attached to a lead entering the thecal sac. Electronically Signed by Marcio Browning MD 01/09/2019 08:04 P
== END ==
LOC: M RAD 18:10
PROVIDERS: ATTEND Urology
DX: N28.89 Other specified disorders of kidney and ureter (principal); N28.1 Cyst of kidney, acquired; N20.0 Calculus of kidney
CPT/HCPCS: 74170; Q9967

== ENCOUNTER → 2019-01-21 | Outpatient (CLI) | payer MEDICARE, OTHER ==
[~2019-01-21] MED LIST changes: -ISOVUE-370 76% 100ML VIAL (Q9967) As Ordered ONE
== END ==
LOC: M PAIN 13:00
PROVIDERS: ATTEND Family Medicine
DX: M96.1 Postlaminectomy syndrome, not elsewhere classified (principal); Z86.59 Personal history of other mental and behavioral disorders; E55.9 Vitamin D deficiency, unspecified; F17.290 Nicotine dependence, other tobacco product, uncomplicated; Z91.030 Bee allergy status; Z79.891 Long term (current) use of opiate analgesic; Z79.899 Other long term (current) drug therapy

== ENCOUNTER → 2019-11-19 | Outpatient (REF) | payer MEDICARE, BC, OTHER ==
[~2019-11-19] MED LIST changes: +OXYC-1 PO; -OXYC15TA76 PO
[2019-12-20 11:20] LABS: APPEARANCE, URINE CLOUDY (CLEAR); BACTERIA, URINE AUTO NEGATIVE (NEGATIVE); BILIRUBIN, URINE AUTO NEGATIVE (NEGATIVE); BLOOD, URINE BLOOD 3+ (NEGATIVE); COLOR, URINE YELLOW (YELLOW); GLUCOSE, URINE (UA) AUTO 3+ mg/dL (NEGATIVE); KETONE, URINE AUTO NEGATIVE (NEGATIVE); LEUKOCYTE ESTERASE, URINE AUTO NEGATIVE (NEGATIVE); MUCUS, URINE SMALL (NEGATIVE); NITRITE, URINE AUTO NEGATIVE (NEGATIVE); PROTEIN, URINE AUTO 1+ mg/dL (NEGATIVE); RBC, URINE AUTO TNTC /HPF (0-3); SPECIFIC GRAVITY URINE AUTO 1.023 (1.002-1.035); SQUAMOUS EPITHELIAL CELL UR AU 0 /HPF (0-6); UROBILINOGEN, URINE AUTO 0.2 mg/dL (0.0-2.0); WBC, URINE AUTO 7 /HPF (0-3)
== END ==
LOC: M SMT 06:17
PROVIDERS: ATTEND Nurse Practitioner Family
DX: R10.32 Left lower quadrant pain (principal)
CPT/HCPCS: 81000; 81001; 87086; G0463

== ENCOUNTER → 2019-11-22 | Outpatient (REF) | payer MEDICARE, OTHER ==
[2020-01-19 08:32] LABS: BASO # 0.1 10^3/uL (0.0-0.2); BASO % 0.9 % (0.0-1.0); EOS # 0.1 10^3/uL (0.0-0.5); EOS % 2.2 % (0.0-3.0); HEMATOCRIT 41.7 % (42.0-52.0); HEMOGLOBIN 14.4 g/dl (13.5-17.5); LYMPH # 2.6 10^3/uL (1.5-5.0); LYMPH % 40.4 % (24.0-44.0); MEAN CORPUSCULAR HEMOGLOBIN 32.2 pg (27.0-33.0); MEAN CORPUSCULAR HGB CONC 34.5 g/dl (32.0-36.5); MEAN CORPUSCULAR VOLUME 93.3 fl (80.0-96.0); MONO # 0.4 10^3/uL (0.0-0.8); NEUTROPHILS # 3.3 10^3/uL (1.5-8.5); NEUTROPHILS % 50.3 % (36.0-66.0); PLATELET COUNT, AUTOMATED 216 10^3/uL (150-450); RED BLOOD COUNT 4.47 10^6/uL (4.30-6.10); WHITE BLOOD COUNT 6.5 10^3/uL (4.0-10.0)
[2020-01-19 20:16] LABS: ALBUMIN 3.5 GM/DL (3.2-5.2); ALT/SGPT 21 U/L (12-78); BILIRUBIN,TOTAL 0.3 MG/DL (0.2-1.0); BLOOD UREA NITROGEN 16 MG/DL (7-18); CARBON DIOXIDE LEVEL 29 MEQ/L (21-32); CHLORIDE LEVEL 107 MEQ/L (98-107); CHOLESTEROL LEVEL 165 MG/DL (<200); CREATININE FOR GFR 1.06 MG/DL (0.70-1.30); GLOMERULAR FILTRATION RATE > 60.0 (>42); GLUCOSE, FASTING 104 MG/DL (70-100); HDL CHOLESTEROL 33 MG/DL (>40); LDL CHOLESTEROL 106 MG/DL (<100); NON-HDL-C 132 MG/DL; POTASSIUM SERUM 4.2 MEQ/L (3.5-5.1); SODIUM LEVEL 141 MEQ/L (136-145); TOTAL PROTEIN 6.8 GM/DL (6.4-8.2); TRIGLYCERIDES LEVEL 128 MG/DL (<150)
== END ==
LOC: M WUC 12:23
PROVIDERS: ATTEND Nurse Practitioner Family
DX: Z00.00 Encounter for general adult medical examination without abnormal findings (principal); Z79.899 Other long term (current) drug therapy

== ENCOUNTER → 2020-01-08 | Outpatient (CLI) | payer MEDICARE, OTHER ==
--- NOTE | 2020-01-12 09:09 | ECWPNPC ---
PATIENT NAME: DAVE SIU : 1950 GENDER: MALE VISIT DATE: 01/08/2020 DISCHARGE DATE: 01/08/20 1454 VISIT LOCKED DATE TIME: PHYSICIAN: SHAWNA REES RESOURCE: SHAWNA REES REASON FOR APPOINTMENT 1. NECK-30 MIN HISTORY OF PRESENT ILLNESS DEPRESSION SCREENING: PHQ-2 (2015 EDITION) LITTLE INTEREST OR PLEASURE IN DOING THINGS?NOT AT ALL FEELING DOWN, DEPRESSED, OR HOPELESS?NOT AT ALL TOTAL SCORE0 69-YEAR-OLD MALE IN FOR CHRONIC PAIN FOLLOW-UP. HE RATES HIS PAIN CURRENTLY AT A 4 OUT OF 10 BUT STATES THAT BY THE END OF THE NIGHT IT REACHES A 7-8 OUT OF 10. HE DESCRIBES HIS PAIN STABBING AND SHOOTING. PATIENT HAS HAD CERVICAL FACET BLOCKS IN THE PAST AND FOUND GOOD RELIEF WITH THEM WE WILL DISCUSS REPEAT PROCEDURES TODAY. PAIN CENTER INTAKE QUESTIONS: DO YOU HAVE A HISTORY OF MRSA? :NO DO YOU TAKE A BLOOD THINNERS? :NO DO YOU HAVE ANY BLEEDING DISORDERS? :NO ANY NEW NUMBNESS OR WEAKNESS IN YOUR LEGS OR ARMS? :YES YES IN THE RIGHT ARM FOR OVER 30 YEARS. FEELS LIKE ITS ASLEEP ANY PACEMAKER,DEFIBRILLATOR, OR DORSAL COLUMN STIMULATOR? :NO DO YOU HAVE ANY RASHES OR OPEN SORES? :NO ARE YOU ALLERGIC TO IV DYE? :NO ARE YOU DIABETIC? :NO ANY NEW PROBLEMS WITH YOUR MEDICATIONS? :NO HAVE YOU RECEIVED A VACCINE IN THE PAST 30 DAYS? :NO DO YOU PLAN TO RECEIVE A VACCINE IN THE NEXT 21 DAYS? :NO DO YOU NEED ANY PRESCRIPTION? :NO DO YOU TAKE ANY IMMUNOSUPPRESSIVE MEDICATIONS? :NO IS THERE A CHANCE YOU COULD BE ? :NO ARE YOU BREAST FEEDING? :NO GENERAL: -. FALL RISK SCREENING: SCREENING :NO FALLS REPORTED IN THE LAST YEAR PAIN SCREENING: PATIENT HAS A COMPLAINT OF ACUTE OR CHRONIC PAIN :YES LOCATION OF PAIN:NECK INTENSITY OF PAIN (SCALE OF 1 TO 10):4 MEDS HELP MIDDLE OF THE DAY END OF NIGHT PAINLEVEL IS A 7-8 WHAT DOES YOUR PAIN FEEL LIKE:STABBING, SHOOTING DURATION:CONSTANT, STEADY, ALL DAY PAIN IS INCREASED BY:ACTIVITIES, PROLONGED STANDING PAIN IS DECREASED BY:OTHERS PAIN LEVEL DECREASES WITH MEDS NURSING NOTE: -. CURRENT MEDICATIONS TAKING MODAFINIL 200 MG TABLET 1 TABLET IN THE MORNING ORALLY ONCE A DAY TAKING EMSAM 9 MG/24HR PATCH 24 HOUR 1 PATCH TO SKIN TRANSDERMAL ONCE A DAY TAKING VITAMIN D 1000 UNIT CAPSULE 1 CAPSULE ORALLY ONCE A DAY TAKING BACLOFEN 10 MG TABLET 1 TABLET WITH FOOD OR MILK ORALLY BID TAKING OXYCONTIN 40 MG TABLET ER 12 HOUR ABUSE-DETERRENT 1 TABLET ORALLY EVERY 12 HRS TAKING OXYCODONE HCL 15 MG TABLET 1 TABLET NEEDED ORALLY EVERY 6 HRS MDD 3 TAKING FLOMAX 0.4 MG CAPSULE EXTENDED RELEASE 24 HOUR 1 CAPSULE ORALLY BID NOT-TAKING OXYBUTYNIN CHLORIDE 5 MG TABLET 1 TABLET ORALLY EVERY 8 HOURS NEEDED FOR BLADDER SPASMS NOT-TAKING BACTRIM DS 800-160 MG TABLET 1 TABLET FOR YOUR CYSTOSCOPY TODAY ORALLY DIRECTED MEDICATION LIST REVIEWED AND RECONCILED WITH THE PATIENT PAST MEDICAL HISTORY MAJOR DEPRESSIVE DISORDER, SINGLE EPISODE, SENSORINEURAL HEARING LOSS BENIGN PROSTATIC HYPERTROPHY VITAMIN D DEFICEINCY CHRONIC PAIN SNDROME CERVICAL SPONDLOSIS RENAL CYSTS HERNIA RIGHT INGUINAL = DR. PHAN NECK AND BACK PAIN ALLERGIES BEE STING: ANAPHYLAXIS - ALLERGY SURGICAL HISTORY CERVICAL LAMINECTOMY 1989 INSERTION OF SPINAL PUMP ANTERIOR CERVICAL DECOMPRESSION AND FUSION C5-6 2013 MORPHINE PUMP TONSILS KIDNEY STENT 10/2018 RIGHT HERNIA REPAIR 10/2018 CYSTO RIGHT STENT REMOVAL 11/12/2018 BROKEN TOOTH REMOVED 01/2019 FAMILY HISTORY FATHER: , DEMENTIA MOTHER: , STROKE SIBLINGS: , SISTER:COPD, ASTHMA, [place], POSSIBLY 1 KIDNEY, GALLBLADDER REMOVED. MAJOR NECK AND BACK SX. BROTHER: MAJOR BACK SX SON(S): ALIVE DAUGHTER(S): ALIVE, KIDNEY STONES 1 BROTHER(S) , 1 SISTER(S) . 2DAUGHTER(S) - HEALTHY. FATHER PROSTATE CANCER. SOCIAL HISTORY GENERAL: TOBACCO USE ARE YOU A:FORMER SMOKER VAPS WITH NICOTINE HOW LONG HAS IT BEEN SINCE YOU LAST SMOKED?1-3 MONTHS LATEX QUESTIONNAIRE LATEX ALLERGY : HAVE YOU EVER DEVELOPED ANY TYPE OF REACTION AFTER HANDLING LATEX PRODUCTS SUCH RUBBER GLOVES, CONDOMS, DIAPHRAGMS, BALLOONS, SOCKS, OR UNDERWEAR?NO LATEX ALLERGY : HAVE YOU EVER DEVELOPED ANY TYPE OF REACTION DURING OR AFTER DENTAL APPOINTMENT, VAGINAL/RECTAL EXAMINATION, SURGICAL PROCEDURE, OR ANY OTHER EXPOSURE?NO LATEX RISK : HAVE YOU EVER HAD ANY DIFFICULTY BREATHING OR HIVES AFTER EATING OR HANDLING ANY FRUITS, OR VEGETABLES; SUCH KIWI, BANANAS, STONE FRUITS, OR CHESTNUTSNO LATEX RISK : DO YOU HAVE A PREVIOUS PERSONAL HISTORY OF MORE THAN NINE SURGERIES, SPINA BIFIDA, OR REPEATED CATHERIZATIONS? NO LATEX RISK : ARE YOU FREQUENTLY EXPOSED TO LATEX PRODUCTS IN YOUR OCCUPATION?YES DATE ASKED : 01/08/2020 BMI CARE GOAL FOLLOW-UP PFS REFERRAL NEEDED? NO, CLERGY REFERRAL NEEDED? NO, PUBLIC HEALTH REFERRAL NEEDED? NO, WAS THE PROVIDER NOTIFIED OF ANY PERTINENT INFO? NO, HAS THE PATIENT BEEN EDUCATED REGARDING HIS/HER PLAN OF CARE? YES, HAS THE PATIENT BEEN EDUCATED REGARDING PAIN, THE RISK FOR PAIN, THE IMPORTANCE OF EFFECTIVE PAIN MANAGEMENT, AND THE PAIN ASSESSMENT PROCESS? YES. ALCOHOL SCREENING DID YOU HAVE A DRINK CONTAINING ALCOHOL IN THE PAST YEAR?YES HOW OFTEN DID YOU HAVE SIX OR MORE DRINKS ON ONE OCCASION IN THE PAST YEAR?NEVER (0 POINTS) HOW MANY DRINKS DID YOU HAVE ON A TYPICAL DAY WHEN YOU WERE DRINKING IN THE PAST YEAR?1 OR 2 (0 POINTS) HOW OFTEN DID YOU HAVE A DRINK CONTAINING ALCOHOL IN THE PAST YEAR?MONTHLY OR LESS (1 POINT) POINTS1 INTERPRETATIONNEGATIVE RECREATIONAL DRUG USE DRUG USE?NO CAFFEINE CAFFEINE USE?YES ONLY ON OCCASSION SEXUAL HX HAD SEX IN THE LAST 12 MONTHS (VAGINAL, ORAL, OR ANAL)?YES WITHWOMEN ONLY USE PROTECTION?NO HAVE YOU EVER HAD AN STD?YES OTHER?YES JEHOVAH'S WITNESS [id number] ALEVISM NO ANABAPTIST BELIEFS THAT WOULD IMPACT HEALTH CARE. LANGUAGE LANGUAGES SPOKEN:KAZAKH EDUCATION LEVEL OF EDUCATION: SOME COLLEGE LEARNING BARRIERS / SPECIAL NEEDS BARRIERS TO LEARNING?NO HEARING IMPAIRED?YES BILATERAL TINNITIS VISION IMPAIRED?YES MACULAR DEGENERATION UNSURE IF BOTH EYES COGNITIVELY IMPAIRED?NO :HEARING AIDES :CORRECTIVE LENSES READINESS TO LEARN?YES LEARNING PREFERENCES?NO LEARNING CAPABILITIES PRESENT?YES EMOTIONAL BARRIERS?NO SPECIAL DEVICES?NO RECREATION SUPERINTENDENT NEEDED?NO DOMESTIC VIOLENCE DO YOU FEEL SAFE IN YOUR ENVIRONMENT?YES OCCUPATION: MUSICAN. DIET: REGULAR. EXERCISE: NO REGULAR EXERCISE. MARITAL STATUS: . OTHERS AT HOME: SPOUSE, IN-LAW(S). PAIN CLINIC PFS, CLERGY, PUBLIC HEALTH REFERRALS HAS THE PATIENT BEEN EDUCATED REGARDING HIS/HER PLAN OF CARE?YES HAS THE PATIENT BEEN EDUCATED REGARDING PAIN, THE RISK FOR PAIN, THE IMPORTANCE OF EFFECTIVE PAIN MANAGEMENT, AND THE PAIN ASSESSMENT PROCESS?YES ADVANCE DIRECTIVE ADVANCE DIRECTIVE DISCUSSED WITH PATIENT:YES PT STATES HE HAS HCP- DAYANARA Anderson [phone] HOSPITALIZATION/MAJOR DIAGNOSTIC PROCEDURE SURGERIES KIDNEY STONE = PASSED ON OWN 1990 REVIEW OF SYSTEMS CONSTITUTIONAL: ANY RECENT FEVER NO . CHILLS NO . WEIGHT CHANGE OF UNKNOWN REASONS NO . GASTROENTEROLOGY: NEW UNEXPLAINABLE CHANGES IN BOWEL CONTROL NO . CONSTIPATION NO . GENITOURINARY: ANY NEW CHANGE IN BLADDER CONTROL? NO . NEUROLOGY: NEW ONSET DIZZINESS OR NEUROLOGICAL CHANGES NOT MENTIONED NO . NEW NUMBNESS OR PAIN PATTERNS NOT MENTIONED AND PERTINENT TO TODAY'S VISIT NO . CARDIOLOGY: NEW CHEST PRESSURE NO . NEW CHEST PAIN NO . RESPIRATORY: UNEXPLAINABLE COUGH NO . NEW SHORTNESS OF BREATH NO . VITAL SIGNS WT 195.2 LBS, HT 71 IN, BMI 27.22 INDEX, BP 124/72 MM HG, HR 83 /MIN, RR 18 /MIN, TEMP 97.2 F, OXYGEN SAT % 97%, SAFE IN ENV? (Y/N) YES, NA INITIALS SC 14:01, REVIEWED BY: LIZBETH. EXAMINATION GENERAL EXAMINATION: GENERALNO ACUTE DISTRESS, WELL NOURISHED AND HYDRATED. PSYCHAPPROPRIATE MOOD AND AFFECT . NECK:DENIES POINT TENDERNESS ALONG CERVICAL SPINE, STARTING SKIN SHOWS NO ERYTHEMA, ECCHYMOSIS, INCREASED WARMTH, AND/OR SKIN ERUPTIONS NOTED. . LUNGS:CLEAR TO AUSCULTATION BILATERALLY, NO WHEEZES, RHONCHI, RALES. HEART:NO MURMURS, REGULAR RATE AND RHYTHM. ASSESSMENTS SPONDYLOSIS OF CERVICAL REGION WITHOUT MYELOPATHY OR RADICULOPATHY - M47.812 (PRIMARY) TREATMENT SPONDYLOSIS OF CERVICAL REGION WITHOUT MYELOPATHY OR RADICULOPATHY CLINICAL NOTES: 69-YEAR-OLD MALE IN FOR CHRONIC PAIN FOLLOW-UP. GIVEN PRESENTING SYMPTOMS AND RESULTS PHYSICAL EXAMINATION RECOMMEND BILATERAL THERAPEUTIC CERVICAL FACET BLOCK WITH POST PROCEDURAL FOLLOW-UP. PATIENT HAS EXPRESSED UNDERSTANDING OF AND WAS IN AGREEMENT WITH TREATMENT PLAN. GIVEN TIME TO ASK QUESTIONS AND EXPRESS CONCERNS. PREVENTIVE MEDICINE (MALE) PREVENTIVE WELLNESS PLAN: TODAY'S VISIT PATIENT PRESENTS TODAY FOR: BILAT CERVICAL FACT BLOCK AND WILL SEE HIM POST PROC PROCEDURE CODES FA211 ESTABILISHED PATIENT [facility] FACILITY CHARGE DISPOSITION & COMMUNICATION FOLLOW UP POSTPROCEDURE (REASON: BILATERAL THERAPEUTIC CERVICAL FACET BLOCK) ELECTRONICALLY SIGNED BY DAVINA DURHAM ON 01/12/2020 AT 09:05 AM EDT DISCLAIMER : THIS IS A VISIT SUMMARY EXTRACTED FROM THE [employer] CHART. IT IS NOT A COPY OF THE [employer] PROGRESS NOTE. RUPERT
== END ==
LOC: M PAIN 14:15
PROVIDERS: ATTEND Family Medicine
DX: M47.812 Spondylosis without myelopathy or radiculopathy, cervical region (principal); G89.29 Other chronic pain; E55.9 Vitamin D deficiency, unspecified; F17.290 Nicotine dependence, other tobacco product, uncomplicated; Z86.59 Personal history of other mental and behavioral disorders; Z91.030 Bee allergy status; Z79.891 Long term (current) use of opiate analgesic; Z79.899 Other long term (current) drug therapy

== ENCOUNTER → 2020-01-09 | Outpatient (CLI) | payer MEDICARE, OTHER | LOC: M LABSMTC 10:17 | PROVIDERS: ATTEND Anesthesiology | DX: Z20.828 Contact with and (suspected) exposure to other viral communicable diseases (principal) | CPT/HCPCS: C9803; U0003 ==

== ENCOUNTER → 2020-01-14 | Outpatient (CLI) | payer MEDICARE, OTHER ==
[~2020-01-14] MED LIST changes: +BUPIVACAINE HCL 0.25% 30ML VIAL As Ordered ONE; +ISOVUE-M 300 61% 15ML VIAL As Ordered ONE; +LIDOCAINE 1% SDV 30ML VIAL As Ordered ONE; +TRIAMCINOLONE ACETONIDE SUSP 40 MG/ML VIAL (J3301) As Ordered ONE
--- NOTE | 2020-01-14 12:57 | ECWPNPC ---
PATIENT NAME: DAVE SIU : 1950 GENDER: MALE VISIT DATE: 01/14/2020 DISCHARGE DATE: 01/14/20 1030 VISIT LOCKED DATE TIME: PHYSICIAN: AFSANEH MEDINA MD RESOURCE: AFSANEH MEDINA MD REASON FOR APPOINTMENT 1. BILATERAL THERAPEUTIC CERVICAL FACET BLOCK HISTORY OF PRESENT ILLNESS PAIN CENTER INTAKE QUESTIONS: DO YOU HAVE A HISTORY OF MRSA? :NO DO YOU TAKE A BLOOD THINNERS? :NO DO YOU HAVE ANY BLEEDING DISORDERS? :NO ANY NEW NUMBNESS OR WEAKNESS IN YOUR LEGS OR ARMS? :NO ANY PACEMAKER,DEFIBRILLATOR, OR DORSAL COLUMN STIMULATOR? :NO DO YOU HAVE ANY RASHES OR OPEN SORES? :NO ARE YOU ALLERGIC TO IV DYE? :NO ARE YOU DIABETIC? :NO ANY NEW PROBLEMS WITH YOUR MEDICATIONS? :NO HAVE YOU RECEIVED A VACCINE IN THE PAST 30 DAYS? :NO DO YOU PLAN TO RECEIVE A VACCINE IN THE NEXT 21 DAYS? :NO DO YOU TAKE ANY IMMUNOSUPPRESSIVE MEDICATIONS? :NO ANY HISTORY OF SEIZURES? :NO ANY HISTORY OF CARDIAC ISSUES OR EVENTS? :NO DO YOU HAVE SLEEP APNEA? :NO ANY RECENT HEAD INJURY? :NO DO YOU HAVE ANY NEW INFECTIONS? :NO IS THERE A CHANCE YOU COULD BE ? :NO ARE YOU BREAST FEEDING? :NO WHEN DID YOU LAST EAT? : 01/14/2020 0200 WHEN DID YOU LAST DRINK? : 01/14/2020 0730 WHAT DID YOU LAST DRINK? : WATER NAME OF PERSON DRIVING YOU HOME? : --BEAU DO YOU HAVE ANY OTHER QUESTIONS OR CONCERNS? : - GENERAL: -. FALL RISK SCREENING: SCREENING :NO FALLS REPORTED IN THE LAST YEAR PAIN SCREENING: PATIENT HAS A COMPLAINT OF ACUTE OR CHRONIC PAIN :YES LOCATION OF PAIN:NECK, BOTH SHOULDERS INTENSITY OF PAIN (SCALE OF 1 TO 10):5 WHAT DOES YOUR PAIN FEEL LIKE:INTERMITTENT, STABBING DURATION:MAINLY DURING THE NIGHT, INTERMITTENT, AWAKENS FROM SLEEP PAIN IS INCREASED BY:ACTIVITIES, OTHERS SLEEPING PAIN IS DECREASED BY:USE OF PAIN MEDICATIONS, OTHERS HEAT, ICE, CERVICAL TRACTION NURSING NOTE: -. CURRENT MEDICATIONS TAKING MODAFINIL 200 MG TABLET 1 TABLET IN THE MORNING ORALLY ONCE A DAY, NOTES: NONE RECENT TAKING EMSAM 9 MG/24HR PATCH 24 HOUR 1 PATCH TO SKIN TRANSDERMAL ONCE A DAY, NOTES: 01/13/2020 TAKING VITAMIN D 1000 UNIT CAPSULE 1 CAPSULE ORALLY ONCE A DAY, NOTES: 01/13/2020 TAKING BACLOFEN 10 MG TABLET 1 TABLET WITH FOOD OR MILK ORALLY BID, NOTES: 01/14/2020 0600 TAKING OXYCONTIN 40 MG TABLET ER 12 HOUR ABUSE-DETERRENT 1 TABLET ORALLY EVERY 12 HRS, NOTES: 01/14/2020 0600 TAKING OXYCODONE HCL 15 MG TABLET 1 TABLET NEEDED ORALLY EVERY 6 HRS MDD 3, NOTES: 01/14/2020 0800 TAKING FLOMAX 0.4 MG CAPSULE EXTENDED RELEASE 24 HOUR 1 CAPSULE ORALLY BID, NOTES: 01/14/2020 0730 NOT-TAKING OXYBUTYNIN CHLORIDE 5 MG TABLET 1 TABLET ORALLY EVERY 8 HOURS NEEDED FOR BLADDER SPASMS NOT-TAKING BACTRIM DS 800-160 MG TABLET 1 TABLET FOR YOUR CYSTOSCOPY TODAY ORALLY DIRECTED MEDICATION LIST REVIEWED AND RECONCILED WITH THE PATIENT PAST MEDICAL HISTORY MAJOR DEPRESSIVE DISORDER, SINGLE EPISODE, SENSORINEURAL HEARING LOSS BENIGN PROSTATIC HYPERTROPHY VITAMIN D DEFICEINCY CHRONIC PAIN SNDROME CERVICAL SPONDLOSIS RENAL CYSTS HERNIA RIGHT INGUINAL = DR. PHAN NECK AND BACK PAIN ALLERGIES BEE STING: ANAPHYLAXIS - ALLERGY SURGICAL HISTORY CERVICAL LAMINECTOMY 1989 INSERTION OF SPINAL PUMP ANTERIOR CERVICAL DECOMPRESSION AND FUSION C5-6 2013 MORPHINE PUMP TONSILS KIDNEY STENT 10/2018 RIGHT HERNIA REPAIR 10/2018 CYSTO RIGHT STENT REMOVAL 11/12/2018 BROKEN TOOTH REMOVED 01/2019 FAMILY HISTORY FATHER: , DEMENTIA MOTHER: , STROKE SIBLINGS: , SISTER:COPD, ASTHMA, [place], POSSIBLY 1 KIDNEY, GALLBLADDER REMOVED. MAJOR NECK AND BACK SX. BROTHER: MAJOR BACK SX SON(S): ALIVE DAUGHTER(S): ALIVE, KIDNEY STONES 1 BROTHER(S) , 1 SISTER(S) . 2DAUTER(S) - HEALTHY. FATHER PROSTATE CANCER. SOCIAL HISTORY GENERAL: TOBACCO USE ARE YOU A:FORMER SMOKER VAPS WITH NICOTINE HOW LONG HAS IT BEEN SINCE YOU LAST SMOKED?1-3 MONTHS LATEX QUESTIONNAIRE LATEX ALLERGY : HAVE YOU EVER DEVELOPED ANY TYPE OF REACTION AFTER HANDLING LATEX PRODUCTS SUCH RUBBER GLOVES, CONDOMS, DIAPHRAGMS, BALLOONS, SOCKS, OR UNDERWEAR?NO LATEX ALLERGY : HAVE YOU EVER DEVELOPED ANY TYPE OF REACTION DURING OR AFTER DENTAL APPOINTMENT, VAGINAL/RECTAL EXAMINATION, SURGICAL PROCEDURE, OR ANY OTHER EXPOSURE?NO LATEX RISK : HAVE YOU EVER HAD ANY DIFFICULTY BREATHING OR HIVES AFTER EATING OR HANDLING ANY FRUITS, OR VEGETABLES; SUCH KIWI, BANANAS, STONE FRUITS, OR CHESTNUTSNO LATEX RISK : DO YOU HAVE A PREVIOUS PERSONAL HISTORY OF MORE THAN NINE SURGERIES, SPINA BIFIDA, OR REPEATED CATHERIZATIONS? NO LATEX RISK : ARE YOU FREQUENTLY EXPOSED TO LATEX PRODUCTS IN YOUR OCCUPATION?YES DATE ASKED : 01/08/2020 BMI CARE GOAL FOLLOW-UP PFS REFERRAL NEEDED? NO, CLERGY REFERRAL NEEDED? NO, PUBLIC HEALTH REFERRAL NEEDED? NO, WAS THE PROVIDER NOTIFIED OF ANY PERTINENT INFO? NO, HAS THE PATIENT BEEN EDUCATED REGARDING HIS/HER PLAN OF CARE? YES, HAS THE PATIENT BEEN EDUCATED REGARDING PAIN, THE RISK FOR PAIN, THE IMPORTANCE OF EFFECTIVE PAIN MANAGEMENT, AND THE PAIN ASSESSMENT PROCESS? YES. ALCOHOL SCREENING DID YOU HAVE A DRINK CONTAINING ALCOHOL IN THE PAST YEAR?YES HOW OFTEN DID YOU HAVE SIX OR MORE DRINKS ON ONE OCCASION IN THE PAST YEAR?NEVER (0 POINTS) HOW MANY DRINKS DID YOU HAVE ON A TYPICAL DAY WHEN YOU WERE DRINKING IN THE PAST YEAR?1 OR 2 (0 POINTS) HOW OFTEN DID YOU HAVE A DRINK CONTAINING ALCOHOL IN THE PAST YEAR?MONTHLY OR LESS (1 POINT) POINTS1 INTERPRETATIONNEGATIVE RECREATIONAL DRUG USE DRUG USE?NO CAFFEINE CAFFEINE USE?YES ONLY ON OCCASSION SEXUAL HX HAD SEX IN THE LAST 12 MONTHS (VAGINAL, ORAL, OR ANAL)?YES WITHWOMEN ONLY USE PROTECTION?NO HAVE YOU EVER HAD AN STD?YES OTHER?YES ORTHODOX [id number] LATTER-DAY NO YARSANI BELIEFS THAT WOULD IMPACT HEALTH CARE. LANGUAGE LANGUAGES SPOKEN:TURKISH EDUCATION LEVEL OF EDUCATION: SOME COLLEGE LEARNING BARRIERS / SPECIAL NEEDS BARRIERS TO LEARNING?NO HEARING IMPAIRED?YES BILATERAL TINNITIS VISION IMPAIRED?YES MACULAR DEGENERATION UNSURE IF BOTH EYES COGNITIVELY IMPAIRED?NO :HEARING AIDES :CORRECTIVE LENSES READINESS TO LEARN?YES LEARNING PREFERENCES?NO LEARNING CAPABILITIES PRESENT?YES EMOTIONAL BARRIERS?NO SPECIAL DEVICES?NO PATTERN DESIGNER NEEDED?NO DOMESTIC VIOLENCE DO YOU FEEL SAFE IN YOUR ENVIRONMENT?YES OCCUPATION: MUSICAN. DIET: REGULAR. EXERCISE: NO REGULAR EXERCISE. MARITAL STATUS: . OTHERS AT HOME: SPOUSE, IN-LAW(S). PAIN CLINIC PFS, CLERGY, PUBLIC HEALTH REFERRALS HAS THE PATIENT BEEN EDUCATED REGARDING HIS/HER PLAN OF CARE?YES HAS THE PATIENT BEEN EDUCATED REGARDING PAIN, THE RISK FOR PAIN, THE IMPORTANCE OF EFFECTIVE PAIN MANAGEMENT, AND THE PAIN ASSESSMENT PROCESS?YES ADVANCE DIRECTIVE ADVANCE DIRECTIVE DISCUSSED WITH PATIENT:YES PT STATES HE HAS HCP- DAYANARA Anderson [phone] HOSPITALIZATION/MAJOR DIAGNOSTIC PROCEDURE SURGERIES KIDNEY STONE = PASSED ON OWN 1990 VITAL SIGNS WT 194 LBS, HT 71 IN, BMI 27.05 INDEX, BP 121/83 MM HG, HR 72 /MIN, RR 18 /MIN, TEMP 98.2 F, OXYGEN SAT % 97%, SAFE IN ENV? (Y/N) Y, NA INITIALS SC 08:32, REVIEWED BY: LIZBETH. EXAMINATION GENERAL EXAMINATION: THE PATIENT IS ALERT, ORIENTED TIMES THREE AND COOPERATIVE. HEART SHOWS REGULAR RHYTHM, NO MURMURS AND NO GALLOPS. LUNGS ARE CLEAR TO AUSCULTATION. ASSESSMENTS SPONDYLOSIS OF CERVICAL REGION WITHOUT MYELOPATHY OR RADICULOPATHY - M47.812 (PRIMARY) TREATMENT SPONDYLOSIS OF CERVICAL REGION WITHOUT MYELOPATHY OR RADICULOPATHY [facility] FACET BLOCK (PAIN)[id number] OTHERS CLINICAL NOTES: 01/13/20 @ 10:00; PAT DONE. Justin OVALLES, ACCOUNT CLASSIFICATION CLERK. PROCEDURES PAIN NURSING RECORD PRE-PROCEDURE IV SITE LEFT HAND IV INSERTED IN LEFT HAND, 22 GAUGE, ON FIRST ATTEMPT. SITE CLEAR, FLUSHING WITHOUT DIFFICULTY. LIZBETH, IV STARTED # 22, IV STARTED BY: Chester URRUTIA RN, IV ATTEMPTS 1, PRE-PROCEDURE ORAL MEDICATIONS NONE PROCEDURE IN ROOM 0935, PHYSICIAN IN ROOM 0950, START 0955, FINISH 1003, PHYSICIAN OUT OF ROOM 1006, OUT OF ROOM 1013, STEROID KENALOG, O2 RA, ECG NORMAL SINUS, PATIENT SHIELDED YES, SAFETY STRAP YES, PREP CHLOROPREP Earl HOWARD RN, IV INFUSED N/A, DRESSING TEGADERM DR. MEDINA LOC: SANTOS URRUTIA 01/14/2020 09:35:58 PM > 1. ALERT, ORIENTED RESP: SANTOS URRUTIA 01/14/2020 09:35:22 PM > 1. REGULAR, NO DYSPNEA COLOR: SANTOS URRUTIA 01/14/2020 09:35:37 PM > 1. PINK SKIN: SANTOS URRUTIA 01/14/2020 09:35:51 PM > 1. WARM, DRY POSITION: SANTOS URRUTIA 01/14/2020 09:35:06 PM > 1. PRONE VITALS: SANTOS URRUTIA 01/14/2020 9:42:23 AM > 120/82, 64, 16, 96% SANTOS URRUTIA 01/14/2020 9:45:30 AM > 111/79, 63, 16, 94% SYLSANTOS ARDON 01/14/2020 10:00:35 AM > 105/87, 67, 16, 94% SYLVER,SANTOS Morales 01/14/2020 10:08:10 AM > 109/83, 63, 16, 96% SYLSANTOS ARDON 01/14/2020 10:18:21 AM > DISCHARGE: 119/88, 62, 16, 94% DISCHARGE: POST PAIN 04/18, DRESSING SITE DRY AND INTACT, IV DISCONTINUED, SITE CLEAR, CATHETER INTACT IV REMOVED, SITE CLEAR, CATHETER TIP INTACT., GAIT STEADY, TEACHING COMPLETED, PATIENT ACKNOWLEDGES UNDERSTANDING YES, PATIENT DISCHARGED AT 1027 PN CERVICAL FACET BLOCK LOW BILATERAL CERVICAL PRE PROCEDURE DIAGNOSIS CERVICAL SPONDYLOSIS POST PROCEDURE DIAGNOSIS CERVICAL SPONDYLOSIS PROCEDURE BILATERAL C3-C4 AND BILATERAL C4-C5 THERAPEUTIC CERVICAL FACET BLOCK SURGEON DR. AFSANEH MEDINA INSTRUCTIONAL SUPPORT SERVICES DIRECTOR NONE ANESTHESIA LOCAL PRE PROCEDURE NOTE THE PATIENT HAS HISTORY OF CHRONIC CERVICAL PAIN. I EVALUATED THE PATIENT AND REVIEWED THE CHART. I WENT OVER THE RISKS, ALTERNATIVES, AND BENEFITS ASSOCIATED WITH THIS PROCEDURE. I DISCUSSED THAT THE USE OF STEROIDS MAY CONTRIBUTE TO IMMUNOSUPPRESSION OF THE PATIENT'S BODY AGAINST INFECTIONS SUCH COVID-19. THE PATIENT IS AWARE OF THE POTENTIAL COMPLICATIONS ASSOCIATED WITH THIS VIRUS, INCLUDING, BUT NOT LIMITED TO, . THE PATIENT WOULD LIKE TO PROCEED AND GIVE CONSENT TO PERFORMED THE PROCEDURE. THE PATIENT DENIES UNEXPLAINABLE WEIGHT LOSS, FEVER, CHILLS, OR NEW CHANGES IN URINARY OR BOWEL CONTROL. THE PATIENT IS COVID-19 NEGATIVE DESCRIPTION OF PROCEDURE THE PATIENT WAS BROUGHT TO THE PROCEDURE ROOM AND PLACED IN THE PRONE POSITION. THE CERVICOTHORACIC AREA WAS CLEANED WITH CHLORAPREP SOLUTION AND DRAPED ASEPTICALLY. THE PROCEDURE WAS DONE UNDER STERILE CONDITIONS. A TIMEOUT WAS PERFORMED WHERE LATERALITY AND THE SITE OF THE PROCEDURE WERE CHECKED AND CONFIRMED WITH EVERYONE IN THE ROOM. UNDER FLUOROSCOPIC GUIDANCE, TARGET POINT WAS SELECTED AT THE RIGHT AND LEFT C3-C4 AND RIGHT AND LEFT C4-C5 CERVICAL FACET JOINT. TARGET POINTS WERE SELECTED AFTER LATERAL ROTATION AND TILT OF THE MAGNIFIER OF THE C-ARM. I CONFIRMED AGAIN WITH EVERYONE IN THE ROOM THE LATERALITY OF THE TARGET AT 0955. LIDOCAINE 0.5% WAS USED TO NUMB THE SKIN AND THE SUBCUTANEOUS TISSUE BELOW IT. SPINAL NEEDLES, 22-GAUGE, WERE ADVANCED UNDER FLUOROSCOPIC GUIDANCE AND FOLLOWING PATIENT FEEDBACK UNTIL THE TARGETS WERE TOUCHED. THE POSITION OF THE NEEDLES WAS VERIFIED WITH AP AND LATERAL VIEWS. AFTER PROPER POSITION OF THE NEEDLES WAS ACHIEVED, ISOVUE-M DYE 30%, 0.1 ML, WAS INJECTED SHOWING SPREAD OF THE DYE. KENALOG 20 MG WAS INJECTED AT EACH SITE. THEN A SOLUTION OF 6 ML OF BUPIVACAINE 0.125% WAS USED TO FLUSH EACH SITE. THE MEDICATIONS WERE VERIFIED WITH THE NURSE. THERE WAS NO EVIDENCE OF BLOOD, PARESTHESIA OR CEREBROSPINAL FLUID DURING THE PROCEDURE. THE PATIENT WAS SENT TO THE RECOVERY ROOM. THE PATIENT WAS MOVING THE EXTREMITIES AND DOING WELL. THERE WERE NO COMPLICATIONS DURING THE PROCEDURE. ESTIMATED BLOOD LOSS WAS LESS THAN 5 ML. FLUOROSCOPY TIME WAS 15 SECONDS POST PROCEDURE NOTE THE PATIENT WILL BE SEEN IN A FOLLOW UP IN THE NEXT FEW WEEKS. I AM LOOKING FOR LONG LASTING RELIEF FOR THE PATIENT WITH THIS INTERVENTION. INSTRUCTIONS WERE GIVEN, QUESTIONS WERE ANSWERED, AND THE PATIENT EXPRESSED UNDERSTANDING AND AGREES WITH THE PLAN. I, BARBIE JENNINGS, DOCUMENTED THE ABOVE INFORMATION ACTING A SCRIBE FOR DR. MEDINA. I HAVE REVIEWED THE ABOVE DOCUMENT, WRITTEN BY BARBIE JENNINGS, EXPORT SPECIALIST, AND I VERIFY THAT IT IS ACCURATE PROCEDURE CODES 06824 INJ PARAVERT F JNT C/T 1 LEV, MODIFIERS: 50 [id number] INJ PARAVERT F JNT C/T 2 LEV, MODIFIERS: 50 DISPOSITION & COMMUNICATION FOLLOW UP FOLLOW UP WITH ELECTRICAL LINEWORKER (REASON: POST THERAPEUTIC CERVICAL FACET BLOCK C3-C4, C4-C5) ELECTRONICALLY SIGNED BY AFSANEH MEDINA MD, MD ON 01/14/2020 AT 12:34 PM EDT DISCLAIMER : THIS IS A VISIT SUMMARY EXTRACTED FROM THE [employer] CHART. IT IS NOT A COPY OF THE [employer] PROGRESS NOTE. MTDD
--- NOTE | 2020-01-19 10:39 | REP ---
PARTIAL CERVICAL SPINE SERIES: SINGLE VIEW HISTORY: Bilateral cervical facet block for pain. FLUROSCOPY TIME: 15 seconds reported. FINDINGS: A single [id number] fluoroscopically obtained frontal spot radiograph of the cervical spine documents various needle positions and contrast injection associated with injection procedure. MTDD
== END ==
LOC: M PAIN 08:00
PROVIDERS: ATTEND Anesthesiology
DX: M47.812 Spondylosis without myelopathy or radiculopathy, cervical region (principal); N40.0 Benign prostatic hyperplasia without lower urinary tract symptoms; E55.9 Vitamin D deficiency, unspecified; G89.4 Chronic pain syndrome; H90.5 Unspecified sensorineural hearing loss; Z87.891 Personal history of nicotine dependence; Z91.030 Bee allergy status
CPT/HCPCS: 64490; 64491; J3301; Q9967

== ENCOUNTER → 2020-02-04 | Outpatient (CLI) | payer MEDICARE, OTHER ==
[~2020-02-04] MED LIST changes: -BUPIVACAINE HCL 0.25% 30ML VIAL As Ordered ONE; -ISOVUE-M 300 61% 15ML VIAL As Ordered ONE; -LIDOCAINE 1% SDV 30ML VIAL As Ordered ONE; -TRIAMCINOLONE ACETONIDE SUSP 40 MG/ML VIAL (J3301) As Ordered ONE
--- NOTE | 2020-02-06 03:52 | ECWPNPC ---
PATIENT NAME: DAVE SIU : 1950 GENDER: MALE VISIT DATE: 02/04/2020 DISCHARGE DATE: 02/04/20 1227 VISIT LOCKED DATE TIME: PHYSICIAN: SHAWNA REES RESOURCE: SHAWNA REES REASON FOR APPOINTMENT 1. POST THERAPEUTIC CERVICAL FACET BLOCK C3-C4, C4-C5 HISTORY OF PRESENT ILLNESS PAIN CENTER INTAKE QUESTIONS: 69-YEAR-OLD MALE IN FOR POST CERVICAL FACET BLOCK FOLLOW-UP. PATIENT FEELS THE PROCEDURE WAS UNSUCCESSFUL. HE RATES HIS PAIN CURRENTLY AT A 2 OUT OF 10 AND DESCRIBES IT BURNING. HE FURTHER STATES THE PAIN IS INTERMITTENT. GENERAL: -. FALL RISK SCREENING: SCREENING :NO FALLS REPORTED IN THE LAST YEAR PAIN SCREENING: PATIENT HAS A COMPLAINT OF ACUTE OR CHRONIC PAIN :YES LOCATION OF PAIN:LEFT SHOULDER, RIGHT SHOULDER, NECK INTENSITY OF PAIN (SCALE OF 1 TO 10):2 WHAT DOES YOUR PAIN FEEL LIKE:BURNING DURATION:INTERMITTENT NURSING NOTE: -. CURRENT MEDICATIONS TAKING MODAFINIL 200 MG TABLET 1 TABLET IN THE MORNING ORALLY ONCE A DAY, NOTES: NONE RECENT TAKING EMSAM 9 MG/24HR PATCH 24 HOUR 1 PATCH TO SKIN TRANSDERMAL ONCE A DAY TAKING VITAMIN D 1000 UNIT CAPSULE 1 CAPSULE ORALLY ONCE A DAY, NOTES: 01/13/2020 TAKING BACLOFEN 10 MG TABLET 1 TABLET WITH FOOD OR MILK ORALLY BID TAKING OXYCONTIN 40 MG TABLET ER 12 HOUR ABUSE-DETERRENT 1 TABLET ORALLY EVERY 12 HRS TAKING OXYCODONE HCL 15 MG TABLET 1 TABLET NEEDED ORALLY EVERY 6 HRS MDD 3 TAKING FLOMAX 0.4 MG CAPSULE EXTENDED RELEASE 24 HOUR 1 CAPSULE ORALLY BID TAKING OXYBUTYNIN CHLORIDE 5 MG TABLET 1 TABLET ORALLY EVERY 8 HOURS NEEDED FOR BLADDER SPASMS TAKING BACTRIM DS 800-160 MG TABLET 1 TABLET FOR YOUR CYSTOSCOPY TODAY ORALLY DIRECTED MEDICATION LIST REVIEWED AND RECONCILED WITH THE PATIENT PAST MEDICAL HISTORY MAJOR DEPRESSIVE DISORDER, SINGLE EPISODE, SENSORINEURAL HEARING LOSS BENIGN PROSTATIC HYPERTROPHY VITAMIN D DEFICEINCY CHRONIC PAIN SNDROME CERVICAL SPONDLOSIS RENAL CYSTS HERNIA RIGHT INGUINAL = DR. PHAN NECK AND BACK PAIN ALLERGIES BEE STING: ANAPHYLAXIS - ALLERGY SURGICAL HISTORY CERVICAL LAMINECTOMY 1989 INSERTION OF SPINAL PUMP ANTERIOR CERVICAL DECOMPRESSION AND FUSION C5-6 2013 MORPHINE PUMP TONSILS KIDNEY STENT 10/2018 RIGHT HERNIA REPAIR 10/2018 CYSTO RIGHT STENT REMOVAL 11/12/2018 BROKEN TOOTH REMOVED 01/2019 FAMILY HISTORY FATHER: , DEMENTIA MOTHER: , STROKE SIBLINGS: , SISTER:COPD, ASTHMA, [place], POSSIBLY 1 KIDNEY, GALLBLADDER REMOVED. MAJOR NECK AND BACK SX. BROTHER: MAJOR BACK SX SON(S): ALIVE DAUGHTER(S): ALIVE, KIDNEY STONES 1 BROTHER(S) , 1 SISTER(S) . 2DAUGHTER(S) - HEALTHY. FATHER PROSTATE CANCER. SOCIAL HISTORY GENERAL: TOBACCO USE ARE YOU A:FORMER SMOKER VAPS WITH NICOTINE HOW LONG HAS IT BEEN SINCE YOU LAST SMOKED?1-3 MONTHS LATEX QUESTIONNAIRE LATEX ALLERGY : HAVE YOU EVER DEVELOPED ANY TYPE OF REACTION AFTER HANDLING LATEX PRODUCTS SUCH RUBBER GLOVES, CONDOMS, DIAPHRAGMS, BALLOONS, SOCKS, OR UNDERWEAR?NO LATEX ALLERGY : HAVE YOU EVER DEVELOPED ANY TYPE OF REACTION DURING OR AFTER DENTAL APPOINTMENT, VAGINAL/RECTAL EXAMINATION, SURGICAL PROCEDURE, OR ANY OTHER EXPOSURE?NO DATE ASKED : 01/08/2020 LATEX RISK : HAVE YOU EVER HAD ANY DIFFICULTY BREATHING OR HIVES AFTER EATING OR HANDLING ANY FRUITS, OR VEGETABLES; SUCH KIWI, BANANAS, STONE FRUITS, OR CHESTNUTSNO LATEX RISK : DO YOU HAVE A PREVIOUS PERSONAL HISTORY OF MORE THAN NINE SURGERIES, SPINA BIFIDA, OR REPEATED CATHERIZATIONS? NO LATEX RISK : ARE YOU FREQUENTLY EXPOSED TO LATEX PRODUCTS IN YOUR OCCUPATION?YES BMI CARE GOAL FOLLOW-UP PFS REFERRAL NEEDED? NO, CLERGY REFERRAL NEEDED? NO, PUBLIC HEALTH REFERRAL NEEDED? NO, WAS THE PROVIDER NOTIFIED OF ANY PERTINENT INFO? NO, HAS THE PATIENT BEEN EDUCATED REGARDING HIS/HER PLAN OF CARE? YES, HAS THE PATIENT BEEN EDUCATED REGARDING PAIN, THE RISK FOR PAIN, THE IMPORTANCE OF EFFECTIVE PAIN MANAGEMENT, AND THE PAIN ASSESSMENT PROCESS? YES. ALCOHOL SCREENING DID YOU HAVE A DRINK CONTAINING ALCOHOL IN THE PAST YEAR?YES HOW OFTEN DID YOU HAVE SIX OR MORE DRINKS ON ONE OCCASION IN THE PAST YEAR?NEVER (0 POINTS) HOW MANY DRINKS DID YOU HAVE ON A TYPICAL DAY WHEN YOU WERE DRINKING IN THE PAST YEAR?1 OR 2 (0 POINTS) HOW OFTEN DID YOU HAVE A DRINK CONTAINING ALCOHOL IN THE PAST YEAR?MONTHLY OR LESS (1 POINT) POINTS1 INTERPRETATIONNEGATIVE RECREATIONAL DRUG USE DRUG USE?NO CAFFEINE CAFFEINE USE?YES ONLY ON OCCASSION SEXUAL HX HAD SEX IN THE LAST 12 MONTHS (VAGINAL, ORAL, OR ANAL)?YES WITHWOMEN ONLY USE PROTECTION?NO HAVE YOU EVER HAD AN STD?YES OTHER?YES DENOMINATIONAL [id number] RESTORATIONISM NO PENTECOSTAL BELIEFS THAT WOULD IMPACT HEALTH CARE. LANGUAGE LANGUAGES SPOKEN:GEORGIAN EDUCATION LEVEL OF EDUCATION: SOME COLLEGE LEARNING BARRIERS / SPECIAL NEEDS BARRIERS TO LEARNING?NO HEARING IMPAIRED?YES BILATERAL TINNITIS VISION IMPAIRED?YES MACULAR DEGENERATION UNSURE IF BOTH EYES COGNITIVELY IMPAIRED?NO :HEARING AIDES :CORRECTIVE LENSES READINESS TO LEARN?YES LEARNING PREFERENCES?NO LEARNING CAPABILITIES PRESENT?YES EMOTIONAL BARRIERS?NO SPECIAL DEVICES?NO X RAY DEVELOPER NEEDED?NO DOMESTIC VIOLENCE DO YOU FEEL SAFE IN YOUR ENVIRONMENT?YES OCCUPATION: MUSICAN. DIET: REGULAR. EXERCISE: NO REGULAR EXERCISE. MARITAL STATUS: . OTHERS AT HOME: SPOUSE, IN-LAW(S). PAIN CLINIC PFS, CLERGY, PUBLIC HEALTH REFERRALS HAS THE PATIENT BEEN EDUCATED REGARDING HIS/HER PLAN OF CARE?YES HAS THE PATIENT BEEN EDUCATED REGARDING PAIN, THE RISK FOR PAIN, THE IMPORTANCE OF EFFECTIVE PAIN MANAGEMENT, AND THE PAIN ASSESSMENT PROCESS?YES ADVANCE DIRECTIVE ADVANCE DIRECTIVE DISCUSSED WITH PATIENT:YES PT STATES HE HAS HCP- DAYANARA Anderson [phone] HOSPITALIZATION/MAJOR DIAGNOSTIC PROCEDURE SURGERIES KIDNEY STONE = PASSED ON OWN 1990 REVIEW OF SYSTEMS CONSTITUTIONAL: ANY RECENT FEVER NO . CHILLS NO . WEIGHT CHANGE OF UNKNOWN REASONS NO . GASTROENTEROLOGY: NEW UNEXPLAINABLE CHANGES IN BOWEL CONTROL NO . CONSTIPATION NO . GENITOURINARY: ANY NEW CHANGE IN BLADDER CONTROL? NO . NEUROLOGY: NEW ONSET DIZZINESS OR NEUROLOGICAL CHANGES NOT MENTIONED NO . NEW NUMBNESS OR PAIN PATTERNS NOT MENTIONED AND PERTINENT TO TODAY'S VISIT NO . CARDIOLOGY: NEW CHEST PRESSURE NO . NEW CHEST PAIN NO . RESPIRATORY: UNEXPLAINABLE COUGH NO . NEW SHORTNESS OF BREATH NO . VITAL SIGNS WT 190.2 LBS, HT 71 IN, BMI 26.52 INDEX, BP 112/74 MM HG, HR 75 /MIN, RR 18 /MIN, TEMP 96.8 F, OXYGEN SAT % 98%, SAFE IN ENV? (Y/N) YES, NA INITIALS SC 12:09, REVIEWED BY: KENNA HENSLEY. EXAMINATION GENERAL EXAMINATION: GENERALNO ACUTE DISTRESS, WELL NOURISHED AND HYDRATED. PSYCHAPPROPRIATE MOOD AND AFFECT . LUNGS:CLEAR TO AUSCULTATION BILATERALLY, NO WHEEZES, RHONCHI, RALES. HEART:NO MURMURS, REGULAR RATE AND RHYTHM. ASSESSMENTS OTHER CHRONIC PAIN - G89.29 (PRIMARY) SPONDYLOSIS OF CERVICAL REGION WITHOUT MYELOPATHY OR RADICULOPATHY - M47.812 TREATMENT OTHER CHRONIC PAIN PAIN PROCEDURE LOGDATE OF [id number]:CERVICAL FACET BLOCK BILATERAL C3-C4, C4-E6HLWIPR OF PRE SEDATEN/A NOTES: 69-YEAR-OLD MALE IN FOR POST CERVICAL FACET BLOCK FOLLOW-UP. GIVEN PRESENTING SYMPTOMS RECOMMEND FOLLOW-UP WHEN HE RETURNS FROM [place]. PATIENT HAS EXPRESSED UNDERSTANDING OF AND WAS IN AGREEMENT WITH TREATMENT PLAN. GIVEN TIME TO ASK QUESTIONS AND EXPRESS CONCERNS. PROCEDURE CODES FA211 ESTABILISHED PATIENT [facility] CHARGE DISPOSITION & COMMUNICATION FOLLOW UP WHEN HE RETURNS FROM [place] (REASON: NECK PAIN) ELECTRONICALLY SIGNED BY DAVINA DURHAM ON 02/05/2020 AT 10:22 AM EDT DISCLAIMER : THIS IS A VISIT SUMMARY EXTRACTED FROM THE [employer] CHART. IT IS NOT A COPY OF THE [employer] PROGRESS NOTE. RUPERT
== END ==
LOC: M PAIN 11:30
PROVIDERS: ATTEND Family Medicine
DX: G89.29 Other chronic pain (principal); M47.812 Spondylosis without myelopathy or radiculopathy, cervical region; F32.9 Major depressive disorder, single episode, unspecified; N40.0 Benign prostatic hyperplasia without lower urinary tract symptoms; E55.9 Vitamin D deficiency, unspecified; H90.5 Unspecified sensorineural hearing loss; F17.290 Nicotine dependence, other tobacco product, uncomplicated; Z79.891 Long term (current) use of opiate analgesic; Z79.899 Other long term (current) drug therapy; Z91.030 Bee allergy status

== ENCOUNTER → 2020-08-26 | Outpatient (CLI) | payer MEDICARE, OTHER ==
--- NOTE | 2020-08-31 05:15 | ECWPNPC ---
PATIENT NAME: DAVE SIU : 1950 GENDER: MALE VISIT DATE: 08/26/2020 DISCHARGE DATE: 08/26/20 1432 VISIT LOCKED DATE TIME: PHYSICIAN: SHAWNA REES RESOURCE: SHAWNA REES REASON FOR APPOINTMENT 1. NECK PAIN HISTORY OF PRESENT ILLNESS DEPRESSION SCREENING: PHQ-2 (2015 EDITION) LITTLE INTEREST OR PLEASURE IN DOING THINGS?NOT AT ALL FEELING DOWN, DEPRESSED, OR HOPELESS?NOT AT ALL TOTAL SCORE0 GENERAL: HPI 69-YEAR-OLD MALE IN FOR CHRONIC PAIN FOLLOW-UP. PATIENT HAS RETURNED FROM [place] AND ADMITS THAT WHILE DOWN THERE HE RECEIVED A NECK INJECTION THAT EXACERBATED HIS PAIN. SINCE THAT TIME PATIENT HAS EXPERIENCED INCREASED PAIN WHICH HAS AFFECTED HIS SLEEP. HE DOES FEEL HIS MEDICATIONS ARE HELPFUL.. -. FALL RISK SCREENING: SCREENING : NO FALLS REPORTED IN THE LAST YEAR. PAIN SCREENING: PATIENT HAS A COMPLAINT OF ACUTE OR CHRONIC PAIN :YES LOCATION OF PAIN:NECK, BOTH SHOULDERS INTENSITY OF PAIN (SCALE OF 1 TO 10):1 6 OR 7 ON AVERAGE WHAT DOES YOUR PAIN FEEL LIKE:ACHING PINCHING, BURNING AND ELECTRICAL BETWEEN SHOULDER BLADES ON OCCASION DURATION:CONTINOUS, AWAKENS FROM SLEEP PAIN IS INCREASED BY:ACTIVITIES, PROLONGED STANDING PAIN IS DECREASED BY:USE OF PAIN MEDICATIONS, SITTING ICE PACKS, HOT TUB, VOLTAREN GEL NURSING NOTE: -. PAIN CENTER INTAKE QUESTIONS: DO YOU HAVE A HISTORY OF MRSA? :NO DO YOU TAKE A BLOOD THINNERS? :NO DO YOU HAVE ANY BLEEDING DISORDERS? :NO ANY NEW NUMBNESS OR WEAKNESS IN YOUR LEGS OR ARMS? :YES YES IN THE RIGHT ARM FOR OVER 30 YEARS. FEELS LIKE ITS ASLEEP ANY PACEMAKER,DEFIBRILLATOR, OR DORSAL COLUMN STIMULATOR? :NO MORPHINE INFUSION PUMP THAT DOES NOT LONGER WORKS DO YOU HAVE ANY RASHES OR OPEN SORES? :YES RIGHT ARM ARE YOU ALLERGIC TO IV DYE? :NO ARE YOU DIABETIC? :NO ANY NEW PROBLEMS WITH YOUR MEDICATIONS? :NO HAVE YOU RECEIVED A VACCINE IN THE PAST 30 DAYS? :NO MARTÍN AND MARTÍN 07/04/2020 DO YOU PLAN TO RECEIVE A VACCINE IN THE NEXT 21 DAYS? :NO DO YOU NEED ANY PRESCRIPTION? :NO DO YOU TAKE ANY IMMUNOSUPPRESSIVE MEDICATIONS? :NO IS THERE A CHANCE YOU COULD BE ? :NO ARE YOU BREAST FEEDING? :NO CURRENT MEDICATIONS TAKING MODAFINIL 200 MG TABLET 1 TABLET IN THE MORNING ORALLY ONCE A DAY, NOTES: NONE RECENT TAKING EMSAM 9 MG/24HR PATCH 24 HOUR 1 PATCH TO SKIN TRANSDERMAL ONCE A DAY TAKING VITAMIN D 1000 UNIT CAPSULE 1 CAPSULE ORALLY ONCE A DAY, NOTES: 01/13/2020 TAKING BACLOFEN 10 MG TABLET 1 TABLET WITH FOOD OR MILK ORALLY BID TAKING OXYCONTIN 40 MG TABLET ER 12 HOUR ABUSE-DETERRENT 1 TABLET ORALLY EVERY 12 HRS TAKING OXYCODONE HCL 15 MG TABLET 1 TABLET NEEDED ORALLY EVERY 6 HRS MDD 3 TAKING FLOMAX 0.4 MG CAPSULE EXTENDED RELEASE 24 HOUR 1 CAPSULE ORALLY BID TAKING MULTIVITAMIN - TABLET 1 TABLET ORALLY ONCE A DAY TAKING EYE VITAMINS - CAPSULE DIRECTED ORALLY TAKING VITAMIN B12 3000 MCG TABLET SUBLINGUAL DIRECTED SUBLINGUAL NOT-TAKING OXYBUTYNIN CHLORIDE 5 MG TABLET 1 TABLET ORALLY EVERY 8 HOURS NEEDED FOR BLADDER SPASMS NOT-TAKING BACTRIM DS 800-160 MG TABLET 1 TABLET FOR YOUR CYSTOSCOPY TODAY ORALLY DIRECTED MEDICATION LIST REVIEWED AND RECONCILED WITH THE PATIENT PAST MEDICAL HISTORY MAJOR DEPRESSIVE DISORDER, SINGLE EPISODE, SENSORINEURAL HEARING LOSS BENIGN PROSTATIC HYPERTROPHY VITAMIN D DEFICEINCY CHRONIC PAIN SNDROME CERVICAL SPONDLOSIS RENAL CYSTS HERNIA RIGHT INGUINAL = DR. PHAN NECK AND BACK PAIN ALLERGIES BEE STING: ANAPHYLAXIS - ALLERGY SURGICAL HISTORY CERVICAL LAMINECTOMY 1989 INSERTION OF SPINAL PUMP ANTERIOR CERVICAL DECOMPRESSION AND FUSION C5-6 2013 MORPHINE PUMP TONSILS KIDNEY STENT 10/2018 RIGHT HERNIA REPAIR 10/2018 CYSTO RIGHT STENT REMOVAL 11/12/2018 BROKEN TOOTH REMOVED 01/2019 SOCIAL HISTORY GENERAL: TOBACCO USE ARE YOU A:FORMER SMOKER VAPES WITH NICOTINE HOW LONG HAS IT BEEN SINCE YOU LAST SMOKED?1-3 MONTHS LATEX QUESTIONNAIRE LATEX ALLERGY : HAVE YOU EVER DEVELOPED ANY TYPE OF REACTION AFTER HANDLING LATEX PRODUCTS SUCH RUBBER GLOVES, CONDOMS, DIAPHRAGMS, BALLOONS, SOCKS, OR UNDERWEAR?NO LATEX ALLERGY : HAVE YOU EVER DEVELOPED ANY TYPE OF REACTION DURING OR AFTER DENTAL APPOINTMENT, VAGINAL/RECTAL EXAMINATION, SURGICAL PROCEDURE, OR ANY OTHER EXPOSURE?NO LATEX RISK : HAVE YOU EVER HAD ANY DIFFICULTY BREATHING OR HIVES AFTER EATING OR HANDLING ANY FRUITS, OR VEGETABLES; SUCH KIWI, BANANAS, STONE FRUITS, OR CHESTNUTSNO LATEX RISK : DO YOU HAVE A PREVIOUS PERSONAL HISTORY OF MORE THAN NINE SURGERIES, SPINA BIFIDA, OR REPEATED CATHERIZATIONS? NO LATEX RISK : ARE YOU FREQUENTLY EXPOSED TO LATEX PRODUCTS IN YOUR OCCUPATION?NO DATE ASKED : 08/26/2020 ALCOHOL USE: NO. BMI CARE GOAL FOLLOW-UP PFS REFERRAL NEEDED? NO, CLERGY REFERRAL NEEDED? NO, PUBLIC HEALTH REFERRAL NEEDED? NO, WAS THE PROVIDER NOTIFIED OF ANY PERTINENT INFO? NO, HAS THE PATIENT BEEN EDUCATED REGARDING HIS/HER PLAN OF CARE? YES, HAS THE PATIENT BEEN EDUCATED REGARDING PAIN, THE RISK FOR PAIN, THE IMPORTANCE OF EFFECTIVE PAIN MANAGEMENT, AND THE PAIN ASSESSMENT PROCESS? YES. ALCOHOL SCREENING DID YOU HAVE A DRINK CONTAINING ALCOHOL IN THE PAST YEAR?YES HOW OFTEN DID YOU HAVE SIX OR MORE DRINKS ON ONE OCCASION IN THE PAST YEAR?NEVER (0 POINTS) HOW MANY DRINKS DID YOU HAVE ON A TYPICAL DAY WHEN YOU WERE DRINKING IN THE PAST YEAR?1 OR 2 (0 POINTS) HOW OFTEN DID YOU HAVE A DRINK CONTAINING ALCOHOL IN THE PAST YEAR?MONTHLY OR LESS (1 POINT) POINTS1 INTERPRETATIONNEGATIVE RECREATIONAL DRUG USE DRUG USE?NO CAFFEINE CAFFEINE USE?YES ONLY ON OCCASSION SEXUAL HX HAD SEX IN THE LAST 12 MONTHS (VAGINAL, ORAL, OR ANAL)?YES WITHWOMEN ONLY USE PROTECTION?NO HAVE YOU EVER HAD AN STD?YES OTHER?YES [place] [id number] RELIGIOUS NO CHRISTIANITY BELIEFS THAT WOULD IMPACT HEALTH CARE. 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 DIET: REGULAR. EXERCISE: NO REGULAR EXERCISE. MARITAL STATUS: . OTHERS AT HOME: SPOUSE, IN-LAW(S). - HAS THE PATIENT BEEN EDUCATED REGARDING HIS/HER PLAN OF CARE?YES HAS THE PATIENT BEEN EDUCATED REGARDING PAIN, THE RISK FOR PAIN, THE IMPORTANCE OF EFFECTIVE PAIN MANAGEMENT, AND THE PAIN ASSESSMENT PROCESS?YES ADVANCE DIRECTIVE ADVANCE DIRECTIVE DISCUSSED WITH PATIENT:YES PT STATES HE HAS HCP- DAYANARA Anderson [phone] HOSPITALIZATION/MAJOR DIAGNOSTIC PROCEDURE SURGERIES KIDNEY STONE = PASSED ON OWN 1990 REVIEW OF SYSTEMS CONSTITUTIONAL: ANY RECENT FEVER NO . CHILLS NO . WEIGHT CHANGE OF UNKNOWN REASONS NO . GASTROENTEROLOGY: NEW UNEXPLAINABLE CHANGES IN BOWEL CONTROL NO . CONSTIPATION NO . GENITOURINARY: ANY NEW CHANGE IN BLADDER CONTROL? NO . NEUROLOGY: NEW ONSET DIZZINESS OR NEUROLOGICAL CHANGES NOT MENTIONED NO . NEW NUMBNESS OR PAIN PATTERNS NOT MENTIONED AND PERTINENT TO TODAY'S VISIT NO . CARDIOLOGY: NEW CHEST PRESSURE NO . PATIENT DENIES NO . RESPIRATORY: UNEXPLAINABLE COUGH NO . NEW SHORTNESS OF BREATH NO . VITAL SIGNS WT 194.6 LBS, HT 71 IN, BMI 27.14 INDEX, BP 124/62 MM HG, HR 74 /MIN, RR 18 /MIN, TEMP 98.6 F, OXYGEN SAT % 95%, SAFE IN ENV? (Y/N) YES, REVIEWED BY: DARIAN BIGGS MA. EXAMINATION GENERAL EXAMINATION: GENERALNO ACUTE DISTRESS, WELL NOURISHED AND HYDRATED. PSYCHAPPROPRIATE MOOD AND AFFECT . LUNGS:CLEAR TO AUSCULTATION BILATERALLY, NO WHEEZES, RHONCHI, RALES. HEART:NO MURMURS, REGULAR RATE AND RHYTHM. ASSESSMENTS SPONDYLOSIS OF CERVICAL REGION WITHOUT MYELOPATHY OR RADICULOPATHY - M47.812 (PRIMARY) TREATMENT SPONDYLOSIS OF CERVICAL REGION WITHOUT MYELOPATHY OR RADICULOPATHY REFILL OXYCONTIN TABLET ER 12 HOUR ABUSE-DETERRENT, 40 MG, 1 TABLET, ORALLY, EVERY 12 HRS, 30 DAYS, 60 TABLET REFILL OXYCODONE HCL TABLET, 15 MG, 1 TABLET NEEDED, ORALLY, EVERY 6 HRS MDD 3, 30 DAYS, 90 START VOLTAREN GEL, 1 %, APPLY 4 GMS TO AFFECTED AREA, EXTERNALLY, FOUR TIMES DAILY, 30 DAYS, 1 TUBE, REFILLS 1 LAB: BLOOD UREA NITROGEN (BUN) LAB: CREATININE [facility] CT SPINE,CERVICAL [id number] NOTES: 69-YEAR-OLD MALE IN FOR CHRONIC PAIN FOLLOW-UP. GIVEN PATIENT'S EXACERBATED PAIN RECOMMENDED GETTING AN UPDATED CERVICAL CT. FURTHER RECOMMENDED USE OF DICLOFENAC GEL. WE'LL FOLLOW-UP POST IMAGING. PATIENT HAS EXPRESSED UNDERSTANDING OF AND WAS IN AGREEMENT WITH TREATMENT PLAN. GIVEN TIME TO ASK QUESTIONS AND EXPRESS CONCERNS. ISTOP REGISTRY REVIEWED AND DEMONSTRATES COMPLLIANCE. (REF # [id number] ) BRINGS IN MEDICATIONS WHICH IS APPROPRIATE FOR WHAT WAS DISPENSED. RECENT URINE TOXICOLOGY REVIEWED. NO UNAUTHORIZED MEDICATIONS. NO ILLICIT SUBSTANCES AND PRESCRIBED MEDICATIONS WERE PRESENT. OTHERS NOTES: DICLOFENAC TOPICAL (OSTEOARTHRITIS PAIN) MATERIAL WAS PRINTED. LAVELLE BIGGS MA. PROCEDURE CODES FA211 ESTABILISHED PATIENT [facility] FACILITY CHARGE DISPOSITION & COMMUNICATION FOLLOW UP POST IMAGING (REASON: CT OF THE CERVICAL SPINE WITH AND WITHOUT CONTRAST) ELECTRONICALLY SIGNED BY DAVINA DURHAM ON 08/30/2020 AT 10:39 AM EDT DISCLAIMER : THIS IS A VISIT SUMMARY EXTRACTED FROM THE [employer] CHART. IT IS NOT A COPY OF THE [employer] PROGRESS NOTE. RUPERT
== END ==
LOC: M PAIN 13:30
PROVIDERS: ATTEND Family Medicine
DX: M47.812 Spondylosis without myelopathy or radiculopathy, cervical region (principal); F32.9 Major depressive disorder, single episode, unspecified; N40.0 Benign prostatic hyperplasia without lower urinary tract symptoms; E55.9 Vitamin D deficiency, unspecified; G89.4 Chronic pain syndrome; H90.5 Unspecified sensorineural hearing loss; F17.290 Nicotine dependence, other tobacco product, uncomplicated; Z79.891 Long term (current) use of opiate analgesic; Z79.899 Other long term (current) drug therapy; Z91.030 Bee allergy status

== ENCOUNTER → 2020-09-27 | Outpatient (CLI) | payer MEDICARE, BC, OTHER ==
[~2020-09-27] MED LIST changes: +ISOVUE-370 76% 100ML VIAL As Ordered ONE
--- NOTE | 2020-09-27 14:32 | REP ---
INDICATION: PULMONARY NODULE F/U COMPARISON: 08/14/2014 the only prior TECHNIQUE: Standard helical technique after the intravenous administration of 100 cc Isovue 370. FINDINGS: The mediastinum and pulmonary alexey are within normal limits. There is no evidence of a mass or adenopathy. There are no pleural or pericardial effusions. The imaged osseous structures are stable with the exception of previously described right-sided rib fractures now being healed. Evaluation of the lung irvin shows no new abnormal nodules, masses, or opacities. There are multiple stable 2-4 mm sized nodules in each of the lower lobes which have been stable since 1st imaged on the 12/25/2017 CT abdomen and pelvis lung base images. IMPRESSION: No acute abnormality. CT findings as described above. According to the revised Fleischner society criteria follow-up of these nodules would be part of the patient's yearly CT lung screening protocol provided the appropriate history of smoking or sooner if clinically relevant for an underlying disease process. <Electronically signed by Carlitos Oscar > 09/27/20 [id number]
== END ==
LOC: M RAD 13:19
PROVIDERS: ATTEND Nurse Practitioner Family
DX: R91.1 Solitary pulmonary nodule (principal); R91.8 Other nonspecific abnormal finding of lung field; M47.812 Spondylosis without myelopathy or radiculopathy, cervical region
CPT/HCPCS: 71260; 72126; Q9967

== ENCOUNTER → 2020-09-27 | Outpatient (CLI) | payer MEDICARE, BC, OTHER ==
[~2020-09-27] MED LIST changes: -ISOVUE-370 76% 100ML VIAL As Ordered ONE
--- NOTE | 2020-09-27 14:15 | REPVR ---
PROCEDURE INFORMATION: Exam: CT Cervical Spine With Contrast Exam date and time: 09/27/2020 1:42 PM Age: 70 years old Clinical indication: Other: Spondylosis; Additional info: Spondylosis of cervical region TECHNIQUE: Imaging protocol: Computed tomography images of the cervical spine with intravenous contrast. Radiation optimization: All CT scans at this facility use at least one of these dose optimization techniques: automated exposure control; mA and/or kV adjustment per patient size (includes targeted exams where dose is matched to clinical indication); or iterative reconstruction. Contrast material: ISOVUE 370; Contrast volume: 100 ml; Contrast route: INTRAVENOUS (IV); COMPARISON: CT Spine,cervical w/o contrast 11/07/2018 4:26 PM FINDINGS: Bones/joints: Ventral fixation plate and screws are noted at C5 and C6, with intervertebral spacer. There are laminectomy changes from C3 to T1. There is mild reversal the normal cervical lordosis proximally. There is no fracture. Discs/Spinal canal/Neural foramina: There is moderate to severe intervertebral disc space loss at C3/4 and C4/5 and severe intervertebral disc space loss at C6/7. At C3/4, disc osteophyte complex and facet hypertrophy contribute to moderate to severe right neural foraminal narrowing. At C4/5, diffuse disc osteophyte complex and moderate facet hypertrophy contribute to severe right and mild left neural foraminal narrowing. At C5/6, there are fusion changes. Disc osteophyte complex and facet hypertrophy contribute to moderate to severe right neural foraminal narrowing. At C6/7, diffuse disc osteophyte complex and moderate facet hypertrophy contribute to severe bilateral neural foraminal narrowing. Lungs: Lung apices are normal. Soft tissues: Unremarkable. IMPRESSION: No no acute fracture. Chronic changes. Electronically signed by: Eufemia Blackwell On 09/27/2020 14:15:25 PM
== END ==
LOC: M RAD 13:17
PROVIDERS: ATTEND Family Medicine
DX: M47.812 Spondylosis without myelopathy or radiculopathy, cervical region (principal)

== ENCOUNTER → 2020-10-07 | Outpatient (CLI) | payer MEDICARE, OTHER ==
--- NOTE | 2020-10-08 23:38 | ECWPNPC ---
PATIENT NAME: DAVE SIU : 1950 GENDER: MALE VISIT DATE: 10/07/2020 DISCHARGE DATE: 10/07/20 1408 VISIT LOCKED DATE TIME: PHYSICIAN: SHAWNA REES RESOURCE: SHAWNA REES REASON FOR APPOINTMENT 1. NEURALGIA HISTORY OF PRESENT ILLNESS GENERAL: HPI 70-YEAR-OLD MALE IN FOR CHRONIC PAIN FOLLOW-UP. HE RATES HIS PAIN CURRENTLY A 1 OUT OF 10 FURTHER STATING THAT IT AVERAGES A 1-2 OUT OF 10. PATIENT HAD A CT PERFORMED RECENTLY WHICH WILL BE REVIEWED WITH PATIENT TODAY.. -. FALL RISK SCREENING: SCREENING : NO FALLS REPORTED IN THE LAST YEAR. PAIN SCREENING: PATIENT HAS A COMPLAINT OF ACUTE OR CHRONIC PAIN :YES LOCATION OF PAIN:NECK INTENSITY OF PAIN (SCALE OF 1 TO 10):1 AVERAGE IS A 1-2. INCREASES WITH ACTIVITY LEVEL UP TO A 10. WHAT DOES YOUR PAIN FEEL LIKE:ACHING, CONTINOUS DURATION:CONTINOUS, CONSTANT, ONLY WITH SPECIFIC ACTIVITIES, AWAKENS FROM SLEEP PAIN IS INCREASED BY:ACTIVITIES, PROLONGED STANDING PAIN IS DECREASED BY:USE OF PAIN MEDICATIONS, SITTING NURSING NOTE: -. PAIN CENTER INTAKE QUESTIONS: DO YOU HAVE A HISTORY OF MRSA? :NO DO YOU TAKE A BLOOD THINNERS? :NO DO YOU HAVE ANY BLEEDING DISORDERS? :NO ANY NEW NUMBNESS OR WEAKNESS IN YOUR LEGS OR ARMS? :YES YES IN THE RIGHT ARM FOR OVER 30 YEARS. FEELS LIKE ITS ASLEEP ANY PACEMAKER,DEFIBRILLATOR, OR DORSAL COLUMN STIMULATOR? :NO MORPHINE INFUSION PUMP THAT DOES NOT LONGER WORKS DO YOU HAVE ANY RASHES OR OPEN SORES? :YES BILATERAL ARMS ARE YOU ALLERGIC TO IV DYE? :NO ARE YOU DIABETIC? :NO ANY NEW PROBLEMS WITH YOUR MEDICATIONS? :NO HAVE YOU RECEIVED A VACCINE IN THE PAST 30 DAYS? :NO MARTÍN AND MARTÍN 07/04/2020 DO YOU PLAN TO RECEIVE A VACCINE IN THE NEXT 21 DAYS? :NO DO YOU NEED ANY PRESCRIPTION? :YES OXYCONTIN AND OXYCODONE DO YOU TAKE ANY IMMUNOSUPPRESSIVE MEDICATIONS? :NO IS THERE A CHANCE YOU COULD BE ? :NO ARE YOU BREAST FEEDING? :NO CURRENT MEDICATIONS TAKING MODAFINIL 200 MG TABLET 1 TABLET IN THE MORNING ORALLY ONCE A DAY, NOTES: NONE RECENT TAKING EMSAM 9 MG/24HR PATCH 24 HOUR 1 PATCH TO SKIN TRANSDERMAL ONCE A DAY TAKING VITAMIN D 1000 UNIT CAPSULE 1 CAPSULE ORALLY ONCE A DAY, NOTES: 01/13/2020 TAKING BACLOFEN 10 MG TABLET 1 TABLET WITH FOOD OR MILK ORALLY BID TAKING MULTIVITAMIN - TABLET 1 TABLET ORALLY ONCE A DAY TAKING EYE VITAMINS - CAPSULE DIRECTED ORALLY TAKING VITAMIN B12 3000 MCG TABLET SUBLINGUAL DIRECTED SUBLINGUAL TAKING OXYCONTIN 40 MG TABLET ER 12 HOUR ABUSE-DETERRENT 1 TABLET ORALLY EVERY 12 HRS TAKING OXYCODONE HCL 15 MG TABLET 1 TABLET NEEDED ORALLY EVERY 6 HRS MDD 3 TAKING VOLTAREN 1 % GEL APPLY 4 GMS TO AFFECTED AREA EXTERNALLY FOUR TIMES DAILY TAKING FLOMAX 0.4 MG CAPSULE EXTENDED RELEASE 24 HOUR 1 CAPSULE ORALLY BID UNKNOWN OXYBUTYNIN CHLORIDE 5 MG TABLET 1 TABLET ORALLY EVERY 8 HOURS NEEDED FOR BLADDER SPASMS UNKNOWN BACTRIM DS 800-160 MG TABLET 1 TABLET FOR YOUR CYSTOSCOPY TODAY ORALLY DIRECTED MEDICATION LIST REVIEWED AND RECONCILED WITH THE PATIENT PAST MEDICAL HISTORY MAJOR DEPRESSIVE DISORDER, SINGLE EPISODE, SENSORINEURAL HEARING LOSS BENIGN PROSTATIC HYPERTROPHY VITAMIN D DEFICEINCY CHRONIC PAIN SNDROME CERVICAL SPONDLOSIS RENAL CYSTS HERNIA RIGHT INGUINAL = DR. PHAN NECK AND BACK PAIN ALLERGIES BEE STING: ANAPHYLAXIS - ALLERGY SOCIAL HISTORY GENERAL: TOBACCO USE ARE YOU A:FORMER SMOKER VAPES WITH NICOTINE HOW LONG HAS IT BEEN SINCE YOU LAST SMOKED?1-3 MONTHS LATEX QUESTIONNAIRE LATEX ALLERGY : HAVE YOU EVER DEVELOPED ANY TYPE OF REACTION AFTER HANDLING LATEX PRODUCTS SUCH RUBBER GLOVES, CONDOMS, DIAPHRAGMS, BALLOONS, SOCKS, OR UNDERWEAR?NO LATEX ALLERGY : HAVE YOU EVER DEVELOPED ANY TYPE OF REACTION DURING OR AFTER DENTAL APPOINTMENT, VAGINAL/RECTAL EXAMINATION, SURGICAL PROCEDURE, OR ANY OTHER EXPOSURE?NO LATEX RISK : HAVE YOU EVER HAD ANY DIFFICULTY BREATHING OR HIVES AFTER EATING OR HANDLING ANY FRUITS, OR VEGETABLES; SUCH KIWI, BANANAS, STONE FRUITS, OR CHESTNUTSNO LATEX RISK : DO YOU HAVE A PREVIOUS PERSONAL HISTORY OF MORE THAN NINE SURGERIES, SPINA BIFIDA, OR REPEATED CATHERIZATIONS? NO LATEX RISK : ARE YOU FREQUENTLY EXPOSED TO LATEX PRODUCTS IN YOUR OCCUPATION?NO DATE ASKED : 10/07/2020 ALCOHOL USE: NO. BMI CARE GOAL FOLLOW-UP PFS REFERRAL NEEDED? NO, CLERGY REFERRAL NEEDED? NO, PUBLIC HEALTH REFERRAL NEEDED? NO, WAS THE PROVIDER NOTIFIED OF ANY PERTINENT INFO? NO, HAS THE PATIENT BEEN EDUCATED REGARDING HIS/HER PLAN OF CARE? YES, HAS THE PATIENT BEEN EDUCATED REGARDING PAIN, THE RISK FOR PAIN, THE IMPORTANCE OF EFFECTIVE PAIN MANAGEMENT, AND THE PAIN ASSESSMENT PROCESS? YES. ALCOHOL SCREENING DID YOU HAVE A DRINK CONTAINING ALCOHOL IN THE PAST YEAR?YES HOW OFTEN DID YOU HAVE SIX OR MORE DRINKS ON ONE OCCASION IN THE PAST YEAR?NEVER (0 POINTS) HOW MANY DRINKS DID YOU HAVE ON A TYPICAL DAY WHEN YOU WERE DRINKING IN THE PAST YEAR?1 OR 2 (0 POINTS) HOW OFTEN DID YOU HAVE A DRINK CONTAINING ALCOHOL IN THE PAST YEAR?MONTHLY OR LESS (1 POINT) POINTS1 INTERPRETATIONNEGATIVE RECREATIONAL DRUG USE DRUG USE?NO CAFFEINE CAFFEINE USE?YES ONLY ON OCCASSION SEXUAL HX HAD SEX IN THE LAST 12 MONTHS (VAGINAL, ORAL, OR ANAL)?YES WITHWOMEN ONLY USE PROTECTION?NO HAVE YOU EVER HAD AN STD?YES OTHER?YES [employer] [id number] RELIGIOUS NO CAODAISM BELIEFS THAT WOULD IMPACT HEALTH CARE. LANGUAGE LANGUAGES SPOKEN:KOREAN EDUCATION LEVEL OF EDUCATION: SOME COLLEGE LEARNING BARRIERS / SPECIAL NEEDS CHANGE FROM LAST VISIT?NO BARRIERS TO LEARNING?NO HEARING IMPAIRED?YES BILATERAL TINNITIS :HEARING AIDES VISION IMPAIRED?YES MACULAR DEGENERATION UNSURE IF BOTH EYES :CORRECTIVE LENSES COGNITIVELY IMPAIRED?NO READINESS TO LEARN?YES LEARNING PREFERENCES?NO LEARNING CAPABILITIES PRESENT?YES EMOTIONAL BARRIERS?NO SPECIAL DEVICES?NO GEAR GENERATOR SET UP OPERATOR NEEDED?NO DOMESTIC VIOLENCE DO YOU FEEL SAFE IN YOUR ENVIRONMENT?YES OCCUPATION: MUSICAN. DIET: REGULAR. EXERCISE: NO REGULAR EXERCISE. MARITAL STATUS: . OTHERS AT HOME: SPOUSE, IN-LAW(S). - HAS THE PATIENT BEEN EDUCATED REGARDING HIS/HER PLAN OF CARE?YES HAS THE PATIENT BEEN EDUCATED REGARDING PAIN, THE RISK FOR PAIN, THE IMPORTANCE OF EFFECTIVE PAIN MANAGEMENT, AND THE PAIN ASSESSMENT PROCESS?YES ADVANCE DIRECTIVE ADVANCE DIRECTIVE DISCUSSED WITH PATIENT:YES PT STATES HE HAS HCP- DAYANARA Anderson [phone] REVIEW OF SYSTEMS CONSTITUTIONAL: ANY RECENT FEVER NO . CHILLS NO . WEIGHT CHANGE OF UNKNOWN REASONS NO . GASTROENTEROLOGY: NEW UNEXPLAINABLE CHANGES IN BOWEL CONTROL NO . CONSTIPATION NO . GENITOURINARY: ANY NEW CHANGE IN BLADDER CONTROL? NO . NEUROLOGY: NEW ONSET DIZZINESS OR NEUROLOGICAL CHANGES NOT MENTIONED NO . NEW NUMBNESS OR PAIN PATTERNS NOT MENTIONED AND PERTINENT TO TODAY'S VISIT NO . CARDIOLOGY: NEW CHEST PRESSURE NO . PATIENT DENIES NO . RESPIRATORY: UNEXPLAINABLE COUGH NO . NEW SHORTNESS OF BREATH NO . VITAL SIGNS WT 199.2 LBS, HT 71 IN, BMI 27.78 INDEX, BP 112/69 MM HG, HR 79 /MIN, RR 18 /MIN, TEMP 97.6 F, OXYGEN SAT % 97%, SAFE IN ENV? (Y/N) YES, REVIEWED BY: DARIAN BIGGS MA. EXAMINATION GENERAL EXAMINATION: GENERALNO ACUTE DISTRESS, WELL NOURISHED AND HYDRATED. PSYCHAPPROPRIATE MOOD AND AFFECT . LUNGS:CLEAR TO AUSCULTATION BILATERALLY, NO WHEEZES, RHONCHI, RALES. HEART:NO MURMURS, REGULAR RATE AND RHYTHM. ASSESSMENTS SPONDYLOSIS OF CERVICAL REGION WITHOUT MYELOPATHY OR RADICULOPATHY - M47.812 (PRIMARY) TREATMENT SPONDYLOSIS OF CERVICAL REGION WITHOUT MYELOPATHY OR RADICULOPATHY REFILL OXYCODONE HCL TABLET, 15 MG, 1 TABLET NEEDED, ORALLY, EVERY 6 HRS MDD 3, 30 DAYS, 90 REFILL OXYCONTIN TABLET ER 12 HOUR ABUSE-DETERRENT, 40 MG, 1 TABLET, ORALLY, EVERY 12 HRS, 30 DAYS, 60 TABLET NOTES: 70-YEAR-OLD MALE IN FOR CHRONIC PAIN FOLLOW-UP. REVIEWED CT WITH PATIENT AND GIVEN RESULTS RECOMMEND FOLLOW-UP WITH DR. MEDINA TO DISCUSS POTENTIAL PROCEDURES. PATIENT HAS EXPRESSED UNDERSTANDING OF AND WAS IN AGREEMENT WITH TREATMENT PLAN. GIVEN TIME TO ASK QUESTIONS AND EXPRESS CONCERNS. ISTOP REGISTRY REVIEWED AND DEMONSTRATES COMPLLIANCE. (REF #[id number] ) BRINGS IN MEDICATIONS WHICH IS APPROPRIATE FOR WHAT WAS DISPENSED. RECENT URINE TOXICOLOGY REVIEWED. NO UNAUTHORIZED MEDICATIONS. NO ILLICIT SUBSTANCES AND PRESCRIBED MEDICATIONS WERE PRESENT. PROCEDURE CODES FA211 ESTABILISHED PATIENT [facility] CHARGE DISPOSITION & COMMUNICATION FOLLOW UP WITH DR. MEDINA (REASON: DISCUSS POTENTIAL PROCEDURES) ELECTRONICALLY SIGNED BY DAVINA DURHAM ON 10/08/2020 AT 08:36 AM EDT DISCLAIMER : THIS IS A VISIT SUMMARY EXTRACTED FROM THE [employer] CHART. IT IS NOT A COPY OF THE [employer] PROGRESS NOTE. RUPERT
== END ==
LOC: M PAIN 13:30
PROVIDERS: ATTEND Family Medicine
DX: M47.812 Spondylosis without myelopathy or radiculopathy, cervical region (principal); F32.9 Major depressive disorder, single episode, unspecified; N40.0 Benign prostatic hyperplasia without lower urinary tract symptoms; H90.5 Unspecified sensorineural hearing loss; E55.9 Vitamin D deficiency, unspecified; G89.4 Chronic pain syndrome; F17.290 Nicotine dependence, other tobacco product, uncomplicated; Z79.891 Long term (current) use of opiate analgesic; Z79.899 Other long term (current) drug therapy; Z91.030 Bee allergy status

== ENCOUNTER → 2020-10-21 | Outpatient (CLI) | payer MEDICARE, OTHER ==
[~2020-10-21] MED LIST changes: +AREDS 2 PO; +D31000TA2 PO; +EPIN0.3I11; +MAGN250T7 PO; +MODA200T15; +PROV100T25 PO; +VITMTA PO
--- NOTE | 2020-10-23 01:20 | ECWPNPC ---
PATIENT NAME: DAVE SIU : 1950 GENDER: MALE VISIT DATE: 10/21/2020 DISCHARGE DATE: 10/21/20 1229 VISIT LOCKED DATE TIME: PHYSICIAN: AFSANEH MEDINA MD RESOURCE: AFSANEH MEDINA MD REASON FOR APPOINTMENT 1. DISCUSS POTENTIAL PROCEDURES HISTORY OF PRESENT ILLNESS GENERAL: 70-YEAR-OLD MALE PATIENT WITH A HISTORY OF CHRONIC NECK PAIN. THE PATIENT DESCRIBES THE PAIN CONTINUOUS, STEADY AND THROBBING WITH A PAIN SCORE RANGING FROM 4-10/10. THIS HAS BEEN AFFECTING HIS ABILITY TO PERFORM ACTIVITIES SUCH CLEANING HIS HOUSE AND WORKING. IN THE PAST, HE HAS DONE THERAPEUTIC FACET BLOCKS THAT HAS PROVIDED HIM MULTIPLE MONTHS OF PAIN RELIEF. HE FLIES BACK AND FOURTH TO [place]. HE IS NOW EXPRESSING PAIN OVER HIS SHOULDERS. THERE ARE SOME CONCERNS OVER THE INTRATHECAL PUMP AND DOING MRIS. FALL RISK SCREENING: SCREENING : NO FALLS REPORTED IN THE LAST YEAR. PAIN SCREENING: PATIENT HAS A COMPLAINT OF ACUTE OR CHRONIC PAIN :YES LOCATION OF PAIN:NECK, BOTH SHOULDERS, LOW BACK INTENSITY OF PAIN (SCALE OF 1 TO 10):3 WHAT DOES YOUR PAIN FEEL LIKE:ACHING, THROBBING DURATION:CONTINOUS, CONSTANT, STEADY, ALL DAY, AWAKENS FROM SLEEP PAIN IS INCREASED BY:ACTIVITIES PAIN IS DECREASED BY:USE OF PAIN MEDICATIONS, OTHERS ICE, HOT TUB, REST NURSING NOTE: -. PAIN CENTER INTAKE QUESTIONS: DO YOU HAVE A HISTORY OF MRSA? :NO DO YOU TAKE A BLOOD THINNERS? :NO DO YOU HAVE ANY BLEEDING DISORDERS? :NO ANY NEW NUMBNESS OR WEAKNESS IN YOUR LEGS OR ARMS? :NO ANY PACEMAKER,DEFIBRILLATOR, OR DORSAL COLUMN STIMULATOR? :NO MORPHINE PUMP ON LEFT SIDE- NO LONGER WORKING DO YOU HAVE ANY RASHES OR OPEN SORES? :NO ARE YOU ALLERGIC TO IV DYE? :NO ARE YOU DIABETIC? :NO ANY NEW PROBLEMS WITH YOUR MEDICATIONS? :NO HAVE YOU RECEIVED A VACCINE IN THE PAST 30 DAYS? :NO DO YOU PLAN TO RECEIVE A VACCINE IN THE NEXT 21 DAYS? :NO DO YOU NEED ANY PRESCRIPTION? :NO DO YOU TAKE ANY IMMUNOSUPPRESSIVE MEDICATIONS? :NO DO YOU HAVE ANY KIDNEY OR LIVER DISEASE? :YES KIDNEY STONES X2 LITHOTRIPSY IS THERE A CHANCE YOU COULD BE ? :NO ARE YOU BREAST FEEDING? :NO CURRENT MEDICATIONS TAKING MODAFINIL 200 MG TABLET 1 TABLET IN THE MORNING ORALLY ONCE A DAY, NOTES: NONE RECENT TAKING EMSAM 9 MG/24HR PATCH 24 HOUR 1 PATCH TO SKIN TRANSDERMAL ONCE A DAY TAKING VITAMIN D 1000 UNIT CAPSULE 1 CAPSULE ORALLY ONCE A DAY, NOTES: 01/13/2020 TAKING BACLOFEN 10 MG TABLET 1 TABLET WITH FOOD OR MILK ORALLY BID TAKING MULTIVITAMIN - TABLET 1 TABLET ORALLY ONCE A DAY TAKING EYE VITAMINS - CAPSULE DIRECTED ORALLY TAKING VITAMIN B12 3000 MCG TABLET SUBLINGUAL DIRECTED SUBLINGUAL TAKING VOLTAREN 1 % GEL APPLY 4 GMS TO AFFECTED AREA EXTERNALLY FOUR TIMES DAILY TAKING FLOMAX 0.4 MG CAPSULE EXTENDED RELEASE 24 HOUR 1 CAPSULE ORALLY BID TAKING OXYCODONE HCL 15 MG TABLET 1 TABLET NEEDED ORALLY EVERY 6 HRS MDD 3 TAKING OXYCONTIN 40 MG TABLET ER 12 HOUR ABUSE-DETERRENT 1 TABLET ORALLY EVERY 12 HRS TAKING MAGNESIUM 250 MG TABLET 1 TABLET WITH A MEAL ORALLY ONCE A DAY UNKNOWN OXYBUTYNIN CHLORIDE 5 MG TABLET 1 TABLET ORALLY EVERY 8 HOURS NEEDED FOR BLADDER SPASMS UNKNOWN BACTRIM DS 800-160 MG TABLET 1 TABLET FOR YOUR CYSTOSCOPY TODAY ORALLY DIRECTED MEDICATION LIST REVIEWED AND RECONCILED WITH THE PATIENT PAST MEDICAL HISTORY MAJOR DEPRESSIVE DISORDER, SINGLE EPISODE, SENSORINEURAL HEARING LOSS BENIGN PROSTATIC HYPERTROPHY VITAMIN D DEFICEINCY CHRONIC PAIN SNDROME CERVICAL SPONDLOSIS RENAL CYSTS HERNIA RIGHT INGUINAL = DR. PHAN NECK AND BACK PAIN ALLERGIES BEE STING: ANAPHYLAXIS - ALLERGY SOCIAL HISTORY GENERAL: TOBACCO USE ARE YOU A:FORMER SMOKER VAPES WITH NICOTINE HOW LONG HAS IT BEEN SINCE YOU LAST SMOKED?1-3 MONTHS VAPORYES E-CIGARETTENO LATEX QUESTIONNAIRE LATEX ALLERGY : HAVE YOU EVER DEVELOPED ANY TYPE OF REACTION AFTER HANDLING LATEX PRODUCTS SUCH RUBBER GLOVES, CONDOMS, DIAPHRAGMS, BALLOONS, SOCKS, OR UNDERWEAR?NO LATEX ALLERGY : HAVE YOU EVER DEVELOPED ANY TYPE OF REACTION DURING OR AFTER DENTAL APPOINTMENT, VAGINAL/RECTAL EXAMINATION, SURGICAL PROCEDURE, OR ANY OTHER EXPOSURE?NO LATEX RISK : HAVE YOU EVER HAD ANY DIFFICULTY BREATHING OR HIVES AFTER EATING OR HANDLING ANY FRUITS, OR VEGETABLES; SUCH KIWI, BANANAS, STONE FRUITS, OR CHESTNUTSNO LATEX RISK : DO YOU HAVE A PREVIOUS PERSONAL HISTORY OF MORE THAN NINE SURGERIES, SPINA BIFIDA, OR REPEATED CATHERIZATIONS? NO LATEX RISK : ARE YOU FREQUENTLY EXPOSED TO LATEX PRODUCTS IN YOUR OCCUPATION?NO DATE ASKED : 10/13/2020 ALCOHOL USE: NO. BMI CARE GOAL FOLLOW-UP PFS REFERRAL NEEDED? NO, CLERGY REFERRAL NEEDED? NO, PUBLIC HEALTH REFERRAL NEEDED? NO, WAS THE PROVIDER NOTIFIED OF ANY PERTINENT INFO? NO, HAS THE PATIENT BEEN EDUCATED REGARDING HIS/HER PLAN OF CARE? YES, HAS THE PATIENT BEEN EDUCATED REGARDING PAIN, THE RISK FOR PAIN, THE IMPORTANCE OF EFFECTIVE PAIN MANAGEMENT, AND THE PAIN ASSESSMENT PROCESS? YES. ALCOHOL SCREENING DID YOU HAVE A DRINK CONTAINING ALCOHOL IN THE PAST YEAR?YES HOW OFTEN DID YOU HAVE SIX OR MORE DRINKS ON ONE OCCASION IN THE PAST YEAR?NEVER (0 POINTS) HOW MANY DRINKS DID YOU HAVE ON A TYPICAL DAY WHEN YOU WERE DRINKING IN THE PAST YEAR?1 OR 2 (0 POINTS) HOW OFTEN DID YOU HAVE A DRINK CONTAINING ALCOHOL IN THE PAST YEAR?MONTHLY OR LESS (1 POINT) POINTS1 INTERPRETATIONNEGATIVE RECREATIONAL DRUG USE DRUG USE?NO CAFFEINE CAFFEINE USE?YES ONLY ON OCCASSION SEXUAL HX HAD SEX IN THE LAST 12 MONTHS (VAGINAL, ORAL, OR ANAL)?YES WITHWOMEN ONLY USE PROTECTION?NO HAVE YOU EVER HAD AN STD?YES OTHER?YES SIKH [id number] ZOROASTRIAN NO DRUZE BELIEFS THAT WOULD IMPACT HEALTH CARE. LANGUAGE LANGUAGES SPOKEN:CHINESE EDUCATION LEVEL OF EDUCATION: SOME COLLEGE LEARNING BARRIERS / SPECIAL NEEDS CHANGE FROM LAST VISIT?NO BARRIERS TO LEARNING?NO HEARING IMPAIRED?YES BILATERAL TINNITIS :HEARING AIDES VISION IMPAIRED?YES MACULAR DEGENERATION UNSURE IF BOTH EYES :CORRECTIVE LENSES COGNITIVELY IMPAIRED?NO READINESS TO LEARN?YES LEARNING PREFERENCES?NO LEARNING CAPABILITIES PRESENT?YES EMOTIONAL BARRIERS?NO SPECIAL DEVICES?NO CAKE INSPECTOR NEEDED?NO DOMESTIC VIOLENCE DO YOU FEEL SAFE IN YOUR ENVIRONMENT?YES OCCUPATION: MUSICAN. DIET: REGULAR. EXERCISE: NO REGULAR EXERCISE. MARITAL STATUS: . OTHERS AT HOME: SPOUSE, IN-LAW(S). - HAS THE PATIENT BEEN EDUCATED REGARDING HIS/HER PLAN OF CARE?YES HAS THE PATIENT BEEN EDUCATED REGARDING PAIN, THE RISK FOR PAIN, THE IMPORTANCE OF EFFECTIVE PAIN MANAGEMENT, AND THE PAIN ASSESSMENT PROCESS?YES ADVANCE DIRECTIVE ADVANCE DIRECTIVE DISCUSSED WITH PATIENT:YES PT STATES HE HAS HCP- DAYANARA Anderson [phone] REVIEW OF SYSTEMS CONSTITUTIONAL: ANY RECENT FEVER NO . CHILLS NO . WEIGHT CHANGE OF UNKNOWN REASONS NO . GASTROENTEROLOGY: NEW UNEXPLAINABLE CHANGES IN BOWEL CONTROL NO . CONSTIPATION NO . GENITOURINARY: ANY NEW CHANGE IN BLADDER CONTROL? NO . NEUROLOGY: NEW ONSET DIZZINESS OR NEUROLOGICAL CHANGES NOT MENTIONED NO . NEW NUMBNESS OR PAIN PATTERNS NOT MENTIONED AND PERTINENT TO TODAY'S VISIT NO . CARDIOLOGY: NEW CHEST PRESSURE NO . PATIENT DENIES NO . RESPIRATORY: UNEXPLAINABLE COUGH NO . NEW SHORTNESS OF BREATH NO . VITAL SIGNS WT 196.8 LBS, HT 71 IN, BMI 27.45 INDEX, BP 145/86 MM HG, HR 53 /MIN, RR 18 /MIN, TEMP 98.2 F, OXYGEN SAT % 93%, SAFE IN ENV? (Y/N) YES, NA INITIALS AW 1121, REVIEWED BY: APA. WILTON RN. EXAMINATION GENERAL: THE PATIENT IS ALERT, ORIENTED TIMES THREE AND COOPERATIVE. LUNGS ARE CLEAR TO AUSCULTATION. HEART SHOWS REGULAR RHYTHM, NO MURMURS AND NO GALLOPS. THERE IS TENDERNESS OVER THE RIGHT AND LEFT CERVICAL FACETS AT C4-C5, C5-C6, C6-C7 BILATERAL WITH INCREASING PAIN WITH EXTENSION AND LATERAL ROTATION. ALSO SOME TENDERNESS OVER THE SHOULDERS. CT OF THE CERVICAL SPINE DATE 09/07/2020 SHOWS FACET ARTHROPATHY CHANGES AT MULTIPLE LEVELS, LAMINECTOMY CHANGES FROM C3- TO T1. THE INTERVERTEBRAL DISC HAS BEEN REDUCED, FORAMINAL STENOSIS AT MULTIPLE LEVELS. ASSESSMENTS CERVICAL SPONDYLOSIS - M47.812 (PRIMARY) FACET ARTHROPATHY, CERVICAL - M47.812 CERVICAL POST-LAMINECTOMY SYNDROME - M96.1 PAIN IN RIGHT SHOULDER - M25.511 PRESENCE OF INTRATHECAL PUMP - Z97.8, NOT IN USE TREATMENT CERVICAL SPONDYLOSIS CLINICAL NOTES: I DISCUSSED ALTERNATIVES WITH MR. SIU. I WILL REQUEST AUTHORIZATION FOR A BILATERAL C4-C5, C5-C6, C6-C7, C7-T1 THERAPEUTIC FACET BLOCK WHICH HAS HELPED THE PATIENT FOR MANY MONTHS IN THE PAST. I WILL CHECK THE PATIENT UNDER X-RAY TO DETERMINE WHICH LEVELS I WILL BLOCK. I AM LOOKING FOR 3 MONTHS OF PAIN RELIEF. I WILL REFER HIM TO ORTHOPEDIC TO BE EVALUATED ABOUT HIS SHOULDERS. I DISCUSSED WITH HIM THE POSSIBILITY OF DOING SHOULDER RADIOFREQUENCY BUT I WOULD LIKE TO SEE WHAT ORTHOPEDIC SAYS FIRST. THE PATIENT WILL MAKE AN APPOINTMENT WITH HIS SURGEON TO DISCUSS REMOVING THE BATTERY OF THE INTRATHECAL PUMP SO HE CAN DO MRIS. THE PATIENT REPORTS UNDERSTANDING AND AGREES. I, BARBIE JENNINGS, DOCUMENTED THE ABOVE INFORMATION ACTING A SCRIBE FOR DR. MEDINA. I HAVE REVIEWED THE ABOVE DOCUMENT, WRITTEN BY BARBIE JENNINGS, SALES OPERATIONS MANAGER, AND I VERIFY THAT IT IS ACCURATE. PAIN IN RIGHT SHOULDER REFERRAL TO:[facility] REASON:SHOULDER PAIN PROCEDURE CODES FA211 ESTABILISHED PATIENT [facility] CHARGE [id number] OFFICE/OUTPATIENT VISIT EST DISPOSITION & COMMUNICATION FOLLOW UP REQUEST AUTH FOR BILATERAL THERAPEUTIC CERVICAL FACET BLOCK C4-C5, C5-C6, C6-C7, C7-T1 (REASON: REQUEST AUTH FOR BILATERAL THERAPEUTIC CERVICAL FACET BLOCK C4-C5, C5-C6, C6-C7, C7-T1) ELECTRONICALLY SIGNED BY AFSANEH MEDINA MD, MD ON 10/22/2020 AT 11:26 AM EDT DISCLAIMER : THIS IS A VISIT SUMMARY EXTRACTED FROM THE [employer] CHART. IT IS NOT A COPY OF THE [employer] PROGRESS NOTE. ANATOLYD
== END ==
LOC: M PAIN 11:15
PROVIDERS: ATTEND Anesthesiology
DX: M47.812 Spondylosis without myelopathy or radiculopathy, cervical region (principal); M96.1 Postlaminectomy syndrome, not elsewhere classified; M25.511 Pain in right shoulder; Z97.8 Presence of other specified devices; N40.0 Benign prostatic hyperplasia without lower urinary tract symptoms; E55.9 Vitamin D deficiency, unspecified; G89.4 Chronic pain syndrome; N28.1 Cyst of kidney, acquired; F17.290 Nicotine dependence, other tobacco product, uncomplicated; Z79.891 Long term (current) use of opiate analgesic; Z79.899 Other long term (current) drug therapy; Z91.030 Bee allergy status

== ENCOUNTER → 2020-10-22 | Outpatient (CLI) | payer MEDICARE, BC, OTHER | LOC: M LABSMTC 10:35 | PROVIDERS: ATTEND Anesthesiology | DX: Z01.812 Encounter for preprocedural laboratory examination (principal); Z20.822 Contact with and (suspected) exposure to COVID-19 ==

== ENCOUNTER 2020-10-27 08:51 | Day surgery (SDC) | payer MEDICARE, BC, OTHER ==
[~2020-10-27] VITALS: Ht 177.8 cm; Wt 89.4 kg
[~2020-10-27 08:51] MED LIST changes: +NS 1,000 ML IV ONE
[2020-10-27] MEDS ORDERED: propofoL 200 MG/20 ML VIAL As Ordered ONE ×3 (10:35→11:16)
[2020-10-27] MEDS ORDERED: LIDOCAINE 2% 100MG/5ML SDV (FOR ANES.) As Ordered ONE (10:36)
[2020-10-27] MEDS ORDERED: ePHEDrine SULFATE 25 MG/5 ML(5MG/ML) SYRINGE As Ordered ONE (11:18)
--- NOTE | 2020-10-27 11:22 | ROOR ---
Patient Name: Nir Shannon Procedure Date: 10/27/2020 10:37 AM Date of : 1950 Age: 70 Room: [facility] Gender: Male Note Status: Finalized Procedure: Colonoscopy Indications: Screening for colorectal malignant neoplasm Providers: DO Scarlet Layne MD: Shira Elder MD Requesting Provider: Medicines: Propofol per Anesthesia Complications: No immediate complications. Procedure: Pre-Anesthesia Assessment: - Prior to the procedure, a History and Physical was performed, and patient medications and allergies were reviewed. The patient is competent. The risks and benefits of the procedure and the sedation options and risks were discussed with the patient. All questions were answered and informed consent was obtained. Patient identification and proposed procedure were verified by the physician, the nurse, the claims supervisor and the device repair technician in the endoscopy suite. Mental Status Examination: alert and oriented. Airway Examination: normal oropharyngeal airway and neck mobility. Respiratory Examination: clear to auscultation. CV Examination: normal. Prophylactic Antibiotics: The patient does not require prophylactic antibiotics. Prior Anticoagulants: The patient has taken no previous anticoagulant or antiplatelet agents. ASA Grade Assessment: II - A patient with mild systemic disease. After reviewing the risks and benefits, the patient was deemed in satisfactory condition to undergo the procedure. The anesthesia plan was to use monitored anesthesia care (MAC). Immediately prior to administration of medications, the patient was re-assessed for adequacy to receive sedatives. The heart rate, respiratory rate, oxygen saturations, blood pressure, adequacy of pulmonary ventilation, and response to care were monitored throughout the procedure. The physical status of the patient was re-assessed after the procedure. The Colonoscope was introduced through the anus and advanced to the cecum, identified by appendiceal orifice and ileocecal valve. The colonoscopy was performed without difficulty. The patient tolerated the procedure well. Findings: Non-bleeding internal hemorrhoids were found during retroflexion. The hemorrhoids were Grade I (internal hemorrhoids that do not prolapse). Four pedunculated polyps were found in the sigmoid colon and ascending colon. The polyps were 4 to 10 mm in size. These polyps were removed with a hot snare. Resection and retrieval were complete. Estimated blood loss was minimal. Four hyperplastic polyps were found in the transverse colon and ascending colon. The polyps were 2 to 8 mm in size. These polyps were removed with a jumbo cold forceps. Resection and retrieval were complete. Estimated blood loss was minimal. Impression: - Non-bleeding internal hemorrhoids. - Four 4 to 10 mm polyps in the sigmoid colon and in the ascending colon, removed with a hot snare. Resected and retrieved. - Four 2 to 8 mm polyps in the transverse colon and in the ascending colon, removed with a jumbo cold forceps. Resected and retrieved. Recommendation: - Patient has a contact number available for emergencies. The signs and symptoms of potential delayed complications were discussed with the patient. Return to normal activities tomorrow. Written discharge instructions were provided to the patient. - Repeat colonoscopy in 1 year for surveillance after piecemeal polypectomy. - Return to my office at appointment to be scheduled. - Await pathology results. Procedure Code(s): --- Professional --- 78853, Colonoscopy, flexible; with removal of tumor(s), polyp(s), or other lesion(s) by snare technique [id number], 59, Colonoscopy, flexible; with biopsy, single or multiple Diagnosis Code(s): --- Professional --- Z12.11, Encounter for screening for malignant neoplasm of colon K64.0, First degree hemorrhoids K63.5, Polyp of colon CPT copyright 2019 [employer]. All rights reserved. The codes documented in this report are preliminary and upon tax map technician review may be revised to meet current compliance requirements. Marcio Merchant DO 10/27/2020 11:21:33 AM Electronically signed by Marcio Merchant DO Number of Addenda: 0 Note Initiated On: 10/27/2020 10:37 AM Estimated Blood Loss: Estimated blood loss was minimal.
[2020-10-27] MEDS ORDERED: SIMETHICONE 40MG/0.6ML DROPS 30ML As Ordered ONE (11:45)
[2020-10-27 11:47] VITALS: BP 123/74
== END 2020-10-27 11:49 | disposition home or self-care (01) ==
LOC: M OPP 08:51
PROVIDERS: ATTEND Surgery
DX: Z12.11 Encounter for screening for malignant neoplasm of colon (principal); D12.2 Benign neoplasm of ascending colon; D12.3 Benign neoplasm of transverse colon; D12.5 Benign neoplasm of sigmoid colon; K59.00 Constipation, unspecified; K64.0 First degree hemorrhoids; Z79.891 Long term (current) use of opiate analgesic; Z79.899 Other long term (current) drug therapy; Z87.891 Personal history of nicotine dependence; Z91.030 Bee allergy status; Z88.8 Allergy status to other drugs, medicaments and biological substances; F17.290 Nicotine dependence, other tobacco product, uncomplicated

== ENCOUNTER → 2020-11-04 | Outpatient (CLI) | payer MEDICARE, OTHER ==
[~2020-11-04] MED LIST changes: -NS 1,000 ML IV ONE
== END ==
LOC: M LABSMTC 11:24
PROVIDERS: ATTEND Anesthesiology
DX: Z01.818 Encounter for other preprocedural examination (principal); Z20.822 Contact with and (suspected) exposure to COVID-19

== ENCOUNTER → 2020-11-09 | Outpatient (CLI) | payer MEDICARE, OTHER ==
[~2020-11-09] MED LIST changes: +BUPIVACAINE HCL 0.25% 30ML VIAL As Ordered ONE; +ISOVUE-M 300 61% 15ML VIAL As Ordered ONE; +LIDOCAINE 1% SDV 30ML VIAL As Ordered ONE; +TRIAMCINOLONE ACETONIDE SUSP 40 MG/ML VIAL (J3301) As Ordered ONE; +diazePAM 5MG TABLET As Ordered ONE; +oxyCODONE 5MG TAB As Ordered ONE
--- NOTE | 2020-11-09 13:30 | REP ---
INDICATION: BILAT CFBT. COMPARISON: None. TECHNIQUE: Single C-arm view cervical spine. FINDINGS: Two needles are seen along the right cervical facet joints and 2 along the left cervical facet joints. A small amount of contrast is injected. Metallic plate and screws are seen in the midline of the lower cervical spine. IMPRESSION: 9 seconds of fluoroscopy time is utilized. <Electronically signed by Marcio Olivarez > 11/09/20 1215
--- NOTE | 2020-11-10 00:41 | ECWPNPC ---
PATIENT NAME: DAVE SIU : 1950 GENDER: MALE VISIT DATE: 11/09/2020 DISCHARGE DATE: 11/09/20 1341 VISIT LOCKED DATE TIME: PHYSICIAN: AFSANEH MEDINA MD RESOURCE: AFSANEH MEDINA MD REASON FOR APPOINTMENT 1. BILATERAL THERAPEUTIC CERVICAL FACET BLOCK C3-C4, C4-C5, C5-C6, C6-C7, C7-T1 HISTORY OF PRESENT ILLNESS GENERAL: -. FALL RISK SCREENING: SCREENING : NO FALLS REPORTED IN THE LAST YEAR. PAIN SCREENING: PATIENT HAS A COMPLAINT OF ACUTE OR CHRONIC PAIN :YES LOCATION OF PAIN:NECK, BOTH SHOULDERS INTENSITY OF PAIN (SCALE OF 1 TO 10):2 WHAT DOES YOUR PAIN FEEL LIKE:STABBING DURATION:CONTINOUS, CONSTANT PAIN IS INCREASED BY:ACTIVITIES PAIN IS DECREASED BY:USE OF PAIN MEDICATIONS NURSING NOTE: -. PAIN CENTER INTAKE QUESTIONS: DO YOU HAVE A HISTORY OF MRSA? :NO DO YOU TAKE A BLOOD THINNERS? :NO DO YOU HAVE ANY BLEEDING DISORDERS? :NO ANY NEW NUMBNESS OR WEAKNESS IN YOUR LEGS OR ARMS? :NO ANY PACEMAKER,DEFIBRILLATOR, OR DORSAL COLUMN STIMULATOR? :NO DO YOU HAVE ANY RASHES OR OPEN SORES? :NO ARE YOU ALLERGIC TO IV DYE? :NO ARE YOU DIABETIC? :NO ANY NEW PROBLEMS WITH YOUR MEDICATIONS? :NO HAVE YOU RECEIVED A VACCINE IN THE PAST 30 DAYS? :NO DO YOU PLAN TO RECEIVE A VACCINE IN THE NEXT 21 DAYS? :NO DO YOU TAKE ANY IMMUNOSUPPRESSIVE MEDICATIONS? :NO ANY HISTORY OF SEIZURES? :NO ANY HISTORY OF CARDIAC ISSUES OR EVENTS? :NO DO YOU HAVE ANY KIDNEY OR LIVER DISEASE? :NO DO YOU HAVE SLEEP APNEA? :NO ANY RECENT HEAD INJURY? :NO DO YOU HAVE ANY NEW INFECTIONS? :NO IS THERE A CHANCE YOU COULD BE ? :NO ARE YOU BREAST FEEDING? :NO WHEN DID YOU LAST EAT? : 11/09/20 0400 WHEN DID YOU LAST DRINK? : 11/09/20 1100 WHAT DID YOU LAST DRINK? : SPRITE NAME OF PERSON DRIVING YOU HOME? : BEAU () DO YOU HAVE ANY OTHER QUESTIONS OR CONCERNS? : NO CURRENT MEDICATIONS TAKING MODAFINIL 200 MG TABLET 1 TABLET IN THE MORNING ORALLY ONCE A DAY TAKING EMSAM 9 MG/24HR PATCH 24 HOUR 1 PATCH TO SKIN TRANSDERMAL ONCE A DAY TAKING VITAMIN D 1000 UNIT CAPSULE 1 CAPSULE ORALLY ONCE A DAY TAKING BACLOFEN 10 MG TABLET 1 TABLET WITH FOOD OR MILK ORALLY BID TAKING MULTIVITAMIN - TABLET 1 TABLET ORALLY ONCE A DAY TAKING EYE VITAMINS - CAPSULE DIRECTED ORALLY TAKING VITAMIN B12 3000 MCG TABLET SUBLINGUAL DIRECTED SUBLINGUAL TAKING VOLTAREN 1 % GEL APPLY 4 GMS TO AFFECTED AREA EXTERNALLY FOUR TIMES DAILY TAKING FLOMAX 0.4 MG CAPSULE EXTENDED RELEASE 24 HOUR 1 CAPSULE ORALLY BID TAKING MAGNESIUM 250 MG TABLET 1 TABLET WITH A MEAL ORALLY ONCE A DAY TAKING OXYCODONE HCL 15 MG TABLET 1 TABLET NEEDED ORALLY EVERY 6 HRS MDD 3 TAKING OXYCONTIN 40 MG TABLET ER 12 HOUR ABUSE-DETERRENT 1 TABLET ORALLY EVERY 12 HRS NOT-TAKING OXYBUTYNIN CHLORIDE 5 MG TABLET 1 TABLET ORALLY EVERY 8 HOURS NEEDED FOR BLADDER SPASMS NOT-TAKING BACTRIM DS 800-160 MG TABLET 1 TABLET FOR YOUR CYSTOSCOPY TODAY ORALLY DIRECTED MEDICATION LIST REVIEWED AND RECONCILED WITH THE PATIENT PAST MEDICAL HISTORY MAJOR DEPRESSIVE DISORDER, SINGLE EPISODE, SENSORINEURAL HEARING LOSS BENIGN PROSTATIC HYPERTROPHY VITAMIN D DEFICEINCY CHRONIC PAIN SNDROME CERVICAL SPONDLOSIS RENAL CYSTS HERNIA RIGHT INGUINAL = DR. PHAN NECK AND BACK PAIN ALLERGIES BEE STING: ANAPHYLAXIS - ALLERGY SOCIAL HISTORY GENERAL: TOBACCO USE ARE YOU A:FORMER SMOKER VAPES WITH NICOTINE HOW LONG HAS IT BEEN SINCE YOU LAST SMOKED?1-3 MONTHS VAPORYES E-CIGARETTENO LATEX QUESTIONNAIRE LATEX ALLERGY : HAVE YOU EVER DEVELOPED ANY TYPE OF REACTION AFTER HANDLING LATEX PRODUCTS SUCH RUBBER GLOVES, CONDOMS, DIAPHRAGMS, BALLOONS, SOCKS, OR UNDERWEAR?NO LATEX ALLERGY : HAVE YOU EVER DEVELOPED ANY TYPE OF REACTION DURING OR AFTER DENTAL APPOINTMENT, VAGINAL/RECTAL EXAMINATION, SURGICAL PROCEDURE, OR ANY OTHER EXPOSURE?NO LATEX RISK : HAVE YOU EVER HAD ANY DIFFICULTY BREATHING OR HIVES AFTER EATING OR HANDLING ANY FRUITS, OR VEGETABLES; SUCH KIWI, BANANAS, STONE FRUITS, OR CHESTNUTSNO LATEX RISK : DO YOU HAVE A PREVIOUS PERSONAL HISTORY OF MORE THAN NINE SURGERIES, SPINA BIFIDA, OR REPEATED CATHERIZATIONS? NO LATEX RISK : ARE YOU FREQUENTLY EXPOSED TO LATEX PRODUCTS IN YOUR OCCUPATION?NO DATE ASKED : 11/08/2020 ALCOHOL USE: NO. BMI CARE GOAL FOLLOW-UP PFS REFERRAL NEEDED? NO, CLERGY REFERRAL NEEDED? NO, PUBLIC HEALTH REFERRAL NEEDED? NO, WAS THE PROVIDER NOTIFIED OF ANY PERTINENT INFO? NO, HAS THE PATIENT BEEN EDUCATED REGARDING HIS/HER PLAN OF CARE? YES, HAS THE PATIENT BEEN EDUCATED REGARDING PAIN, THE RISK FOR PAIN, THE IMPORTANCE OF EFFECTIVE PAIN MANAGEMENT, AND THE PAIN ASSESSMENT PROCESS? YES. ALCOHOL SCREENING DID YOU HAVE A DRINK CONTAINING ALCOHOL IN THE PAST YEAR?YES HOW OFTEN DID YOU HAVE A DRINK CONTAINING ALCOHOL IN THE PAST YEAR?MONTHLY OR LESS (1 POINT) HOW MANY DRINKS DID YOU HAVE ON A TYPICAL DAY WHEN YOU WERE DRINKING IN THE PAST YEAR?1 OR 2 (0 POINTS) HOW OFTEN DID YOU HAVE SIX OR MORE DRINKS ON ONE OCCASION IN THE PAST YEAR?NEVER (0 POINTS) POINTS1 INTERPRETATIONNEGATIVE RECREATIONAL DRUG USE DRUG USE?NO CAFFEINE CAFFEINE USE?YES ONLY ON OCCASSION SEXUAL HX HAD SEX IN THE LAST 12 MONTHS (VAGINAL, ORAL, OR ANAL)?YES WITHWOMEN ONLY USE PROTECTION?NO HAVE YOU EVER HAD AN STD?YES OTHER?YES HINDU [id number] SCIENTOLOGIST NO ADVENTIST BELIEFS THAT WOULD IMPACT HEALTH CARE. LANGUAGE LANGUAGES SPOKEN:SWISS EDUCATION LEVEL OF EDUCATION: SOME COLLEGE LEARNING BARRIERS / SPECIAL NEEDS CHANGE FROM LAST VISIT?NO BARRIERS TO LEARNING?NO HEARING IMPAIRED?YES BILATERAL TINNITIS :HEARING AIDES VISION IMPAIRED?YES MACULAR DEGENERATION UNSURE IF BOTH EYES :CORRECTIVE LENSES COGNITIVELY IMPAIRED?NO READINESS TO LEARN?YES LEARNING PREFERENCES?NO LEARNING CAPABILITIES PRESENT?YES EMOTIONAL BARRIERS?NO SPECIAL DEVICES?NO STABBER NEEDED?NO DOMESTIC VIOLENCE DO YOU FEEL SAFE IN YOUR ENVIRONMENT?YES OCCUPATION: MUSICAN. DIET: REGULAR. EXERCISE: NO REGULAR EXERCISE. MARITAL STATUS: . OTHERS AT HOME: SPOUSE, IN-LAW(S). - HAS THE PATIENT BEEN EDUCATED REGARDING HIS/HER PLAN OF CARE?YES HAS THE PATIENT BEEN EDUCATED REGARDING PAIN, THE RISK FOR PAIN, THE IMPORTANCE OF EFFECTIVE PAIN MANAGEMENT, AND THE PAIN ASSESSMENT PROCESS?YES ADVANCE DIRECTIVE ADVANCE DIRECTIVE DISCUSSED WITH PATIENT:YES PT STATES HE HAS HCP- DAYANARA Anderson [phone] VITAL SIGNS WT 198 LBS, WT-KG 89.81 KG, HT 71 IN, BMI 27.61 INDEX, BP 130/92 MM HG, HR 68 /MIN, RR 18 /MIN, TEMP 98.7 F, OXYGEN SAT % 97%, SAFE IN ENV? (Y/N) Y, NA INITIALS SC 11:28, REVIEWED BY: EM. EXAMINATION GENERAL: A HISTORY AND PHYSICAL EXAM ON THE PATIENT WAS DONE ON 10/21/2020 (DATE OF ORIGINAL ASSESSMENT) IN PREPARATION OF SURGERY/PROCEDURE. I HAVE NOW REASSESSED THIS PATIENT'S HEALTH STATUS AND PERFORMED AN UPDATED EXAM TODAY. ALL CHANGES IN THE PATIENT'S HISTORY, PHYSICAL EXAM, PRE-EXISTING CONDITONS, AND INDICATIONS/CONTRAINDICATIONS TO THE PLANNED PROCEDURE AND ANESTHESIA ARE DOCUMENTED AND EVALUATED BELOW. I ATTEST TO THE ADEQUACY AND APPROPRIATENESS OF MY ASSESSMENT, AND CONFIRM THE NECESSITY FOR THE PLANNED PROCEDURE. THE PATIENT IS ALERT, ORIENTED TIMES THREE AND COOPERATIVE. LUNGS ARE CLEAR TO AUSCULTATION. HEART SHOWS REGULAR RHYTHM, NO MURMURS AND NO GALLOPS. ASSESSMENTS SPONDYLOSIS WITHOUT MYELOPATHY OR RADICULOPATHY, CERVICAL REGION - M47.812 (PRIMARY) TREATMENT SPONDYLOSIS WITHOUT MYELOPATHY OR RADICULOPATHY, CERVICAL REGION [facility] FACET BLOCK (PAIN)[id number] SALINE [id number],ELIZABETH 11/09/2020 12:27:58 PM > 22 G STARTED TO LEFT HAND, GOOD FLASHBACK, FLUSHES EASILY, PT DENIES PAIN. MEDICATION: PAIN VALIUM TAB 10MG ORALLY (DIAZEPAM)[id number],ANITA 11/09/2020 12:05:20 PM > VERIFIED TRACIE OVALLES 11/09/2020 12:26:51 PM > ADMINISTERED MEDICATION: PAIN OXYCODONE HCL TAB 10MG [id number],ANITA 11/09/2020 12:05:39 PM > VERIFIED TRACIE OVALLES 11/09/2020 12:27:13 PM > ADMINISTERED COMPLETION OF PROCEDURAL VISIT WHEN MEETS [id number],ELIZABETH 11/09/2020 1:44:08 PM > CRITERIA MET OTHERS NOTES: 11/08/20 PAT COMPLETED WITH SPOUSE, Hussein HUGGINS, PARTS FACILITATOR. PROCEDURES PAIN NURSING RECORD PROCEDURE IN ROOM 1240, PHYSICIAN IN ROOM 1255, START 1301, FINISH 1306, PHYSICIAN OUT OF ROOM 1307, OUT OF ROOM 1310, ECG NORMAL SINUS SEMI-REGULAR PVC'S DR MEDINA IS AWARE, PATIENT SHIELDED YES, SAFETY STRAP YES, PREP CHLOROPREP Conchis NÚÑEZ RN, DRESSING TEGADERM DR. MEDINA LOC: 1. ALERT, ORIENTED, TRACIE OVALLES 11/09/2020 1:04:16 PM > RESP: 1. REGULAR, NO DYSPNEA, TRACIE OVALLES 11/09/2020 1:04:19 PM > COLOR: 1. PINK, JOSRTRACIE MONTGOMERY 11/09/2020 1:04:23 PM > SKIN: 1. WARM, DRY, TRACIE OVALLES 11/09/2020 1:04:26 PM > POSITION: 1. PRONE TRACIE OVALLES 11/09/2020 1:04:31 PM > VITALS: 113/70, 64, 16, 95% TRACIE OVALLES 11/09/2020 12:48:16 PM > , 122/79, 67, 16, 95%, TRACIE OVALLES 11/09/2020 1:04:44 PM > 123/93, 65, 16, 95%, TRACIE OVALLES 11/09/2020 1:15:50 PM > 134/79, 63, 16, 96%, TRACIE OVALLES 11/09/2020 1:20:12 PM > NOTES Je OVALLES RN, TRACIE OVALLES 11/09/2020 1:04:48 PM > COMPLETION OF PROCEDURE APPOINTMENT: POST PAIN 0, DRESSING SITE DRY AND INTACT, IV DISCONTINUED, SITE CLEAR, CATHETER INTACT, GAIT WHEELCHAIR, TEACHING COMPLETED, PATIENT ACKNOWLEDGES UNDERSTANDING YES, PROCEDURE APPOINTMENT COMPLETED AT 1340 PN CERVICAL FACET BLOCK LOW BILATERAL CERVICAL PRE PROCEDURE DIAGNOSIS CERVICAL SPONDYLOSIS POST PROCEDURE DIAGNOSIS CERVICAL SPONDYLOSIS PROCEDURE BILATERAL C3-C4 AND BILATERAL C4-C5 THERAPEUTIC CERVICAL FACET BLOCK SURGEON DR. AFSANEH MEDINA CLAY MILLER NONE ANESTHESIA LOCAL PRE PROCEDURE NOTE THE PATIENT HAS HISTORY OF CHRONIC CERVICAL PAIN. I EVALUATED THE PATIENT AND REVIEWED THE CHART. I WENT OVER THE RISKS, ALTERNATIVES, AND BENEFITS ASSOCIATED WITH THIS PROCEDURE. THIS INJECTION HAS PROVIDED LONG LASTING PAIN RELIEVE TO THE PATIENT BEFORE. THE PATIENT WOULD LIKE TO PROCEED AND GIVE CONSENT TO PERFORMED THE PROCEDURE. THE PATIENT DENIES UNEXPLAINABLE WEIGHT LOSS, FEVER, CHILLS, OR NEW CHANGES IN URINARY OR BOWEL CONTROL. THE PATIENT IS COVID-19 NEGATIVE DESCRIPTION OF PROCEDURE THE PATIENT WAS BROUGHT TO THE PROCEDURE ROOM AND PLACED IN THE PRONE POSITION. THE CERVICOTHORACIC AREA WAS CLEANED WITH CHLORAPREP SOLUTION AND DRAPED ASEPTICALLY. THE PROCEDURE WAS DONE UNDER STERILE CONDITIONS. A TIMEOUT WAS PERFORMED WHERE THE CONSENTED SITE WAS VERIFIED WITH EVERYONE IN THE ROOM. UNDER FLUOROSCOPIC GUIDANCE, TARGET POINT WAS SELECTED AT THE RIGHT AND LEFT C3-C4 AND RIGHT AND LEFT C4-C5 CERVICAL FACET JOINT. TARGET POINTS WERE SELECTED AFTER LATERAL ROTATION AND TILT OF THE MAGNIFIER OF THE C-ARM. I CONFIRMED AGAIN THE SITE OF TARGET. LIDOCAINE 0.5% WAS USED TO NUMB THE SKIN AND THE SUBCUTANEOUS TISSUE BELOW IT. SPINAL NEEDLES, 22-GAUGE, WERE ADVANCED UNDER FLUOROSCOPIC GUIDANCE AND FOLLOWING PATIENT FEEDBACK UNTIL THE TARGETS WERE TOUCHED. THE POSITION OF THE NEEDLES WAS VERIFIED WITH AP AND LATERAL VIEWS. AFTER PROPER POSITION OF THE NEEDLES WAS ACHIEVED, ISOVUE-M DYE 30%, 0.1 ML, WAS INJECTED SHOWING SPREAD OF THE DYE. KENALOG 10 MG WAS INJECTED AT EACH SITE. THEN A SOLUTION OF 6 ML OF BUPIVACAINE 0.125% WAS USED TO FLUSH EACH SITE. THE MEDICATIONS WERE VERIFIED WITH THE NURSE. THERE WAS NO EVIDENCE OF BLOOD, PARESTHESIA OR CEREBROSPINAL FLUID DURING THE PROCEDURE. THE PATIENT WAS SENT TO THE RECOVERY ROOM. THE PATIENT WAS MOVING THE EXTREMITIES AND DOING WELL. THERE WERE NO COMPLICATIONS DURING THE PROCEDURE. ESTIMATED BLOOD LOSS WAS LESS THAN 5 ML. FLUOROSCOPY TIME WAS 9 SECONDS. POST PROCEDURE NOTE THE PATIENT WILL BE SEEN IN A FOLLOW UP IN THE NEXT FEW WEEKS. I AM LOOKING FOR LONG LASTING RELIEF FOR THE PATIENT WITH THIS INTERVENTION. INSTRUCTIONS WERE GIVEN, QUESTIONS WERE ANSWERED, AND THE PATIENT EXPRESSED UNDERSTANDING AND AGREES WITH THE PLAN. I, BARBIE JENNINGS, DOCUMENTED THE ABOVE INFORMATION ACTING A SCRIBE FOR DR. MEDINA. I HAVE REVIEWED THE ABOVE DOCUMENT, WRITTEN BY BARBIE JENNINGS, HOME COMFORT ADVISOR, AND I VERIFY THAT IT IS ACCURATE PROCEDURE CODES 50604 INJ PARAVERT F JNT C/T 1 LEV, MODIFIERS: 50 [id number] INJ PARAVERT F JNT C/T 2 LEV, MODIFIERS: 50 DISPOSITION & COMMUNICATION FOLLOW UP FOLLOW UP WITH LACQUER COATER (REASON: POST BILATERAL THERAPEUTIC CERVICAL FACET BLOCK C3-C4, C4-C5) ELECTRONICALLY SIGNED BY AFSANEH MEDINA MD, MD ON 11/09/2020 AT 03:26 PM EDT DISCLAIMER : THIS IS A VISIT SUMMARY EXTRACTED FROM THE [facility] CHART. IT IS NOT A COPY OF THE [facility] PROGRESS NOTE. RUPERT
== END ==
LOC: M PAIN 11:20
PROVIDERS: ATTEND Anesthesiology
DX: M47.812 Spondylosis without myelopathy or radiculopathy, cervical region (principal); F32.9 Major depressive disorder, single episode, unspecified; H90.3 Sensorineural hearing loss, bilateral; N40.0 Benign prostatic hyperplasia without lower urinary tract symptoms; E55.9 Vitamin D deficiency, unspecified; G89.4 Chronic pain syndrome; F17.290 Nicotine dependence, other tobacco product, uncomplicated; Z79.891 Long term (current) use of opiate analgesic; Z79.899 Other long term (current) drug therapy; Z91.030 Bee allergy status
CPT/HCPCS: 64490; 64491; J3301; Q9967

== ENCOUNTER → 2020-11-15 | Outpatient (CLI) | payer MEDICARE, BC, OTHER ==
[~2020-11-15] MED LIST changes: -BUPIVACAINE HCL 0.25% 30ML VIAL As Ordered ONE; -ISOVUE-M 300 61% 15ML VIAL As Ordered ONE; -LIDOCAINE 1% SDV 30ML VIAL As Ordered ONE; -TRIAMCINOLONE ACETONIDE SUSP 40 MG/ML VIAL (J3301) As Ordered ONE; -diazePAM 5MG TABLET As Ordered ONE; -oxyCODONE 5MG TAB As Ordered ONE
== END ==
LOC: M SOG 10:29
PROVIDERS: ATTEND Orthopaedic Surgery Sports Medicine
DX: M75.41 Impingement syndrome of right shoulder (principal); M75.42 Impingement syndrome of left shoulder

== ENCOUNTER → 2020-11-25 | Outpatient (CLI) | payer MEDICARE, OTHER | LOC: M PAIN 11:00 | PROVIDERS: ATTEND Anesthesiology | DX: G89.29 Other chronic pain (principal); M47.812 Spondylosis without myelopathy or radiculopathy, cervical region; M96.1 Postlaminectomy syndrome, not elsewhere classified; F32.9 Major depressive disorder, single episode, unspecified; H90.3 Sensorineural hearing loss, bilateral; N40.0 Benign prostatic hyperplasia without lower urinary tract symptoms; E55.9 Vitamin D deficiency, unspecified; N28.1 Cyst of kidney, acquired; F17.290 Nicotine dependence, other tobacco product, uncomplicated; Z79.891 Long term (current) use of opiate analgesic; Z79.899 Other long term (current) drug therapy; Z91.030 Bee allergy status ==

== ENCOUNTER → 2020-12-17 | Outpatient (CLI) | payer MEDICARE, BC, OTHER ==
--- NOTE | 2020-12-17 12:25 | REP ---
INDICATION: RENAL MASS KIDNEY STONES. COMPARISON: CT study June 22, 2020. Comparison sonography June 16, 2020. Comparison CT study January 09, 2019. TECHNIQUE: Urinary tract sonography. FINDINGS: Scanning at the level of the urinary bladder shows no abnormality. Renal cortical echogenicity pattern is somewhat increased bilaterally consistent with chronic medical renal disease. There is no evidence of hydronephrosis on either side. There is a 2.6 cm cyst in the right mid pole and a 2.5 cm cyst in the left lower pole. There is a isoechoic peripheral 1.5 cm area at the lower pole the right kidney unchanged from the comparison sonography of June 16, 2020. This appears to correspond with the complex cyst or small mass on CT and prior ultrasound. It is unchanged in size when compared with the [address] An echogenic focus is seen in the right kidney centrally which may be an intrarenal calculus or vascular calcification. The right kidney measures 13.1 x 5.5 x 4.7 cm. Left renal dimensions are 11.0 x 5.7 x 5.2 cm. IMPRESSION: Bilateral renal cysts. There is a stable 1.5 cm complex cyst versus small mass in the right lower pole. Question intrarenal nephrolithiasis on the right. <Electronically signed by Antelmo Hinojosa > 12/17/20 3150
== END ==
LOC: M RAD 11:29
PROVIDERS: ATTEND Nurse Practitioner Family
DX: N28.89 Other specified disorders of kidney and ureter (principal); N20.0 Calculus of kidney

== ENCOUNTER → 2021-02-01 | Outpatient (CLI) | payer MEDICARE, OTHER ==
[2021-02-01 17:03] LABS: ALBUMIN 3.7 GM/DL (3.2-5.2); ALT/SGPT 28 U/L (12-78); BILIRUBIN,TOTAL 0.6 MG/DL (0.2-1.0); BLOOD UREA NITROGEN 19 MG/DL (7-18); CALCIUM LEVEL 9.4 MG/DL (8.8-10.2); CARBON DIOXIDE LEVEL 30 MEQ/L (21-32); CHLORIDE LEVEL 107 MEQ/L (98-107); CHOLESTEROL LEVEL 199 MG/DL (<200); CHOLESTEROL RISK RATIO 4.422 (<5); CREATININE FOR GFR 1.09 MG/DL (0.70-1.30); GLOMERULAR FILTRATION RATE > 60.0 (>42); GLUCOSE, FASTING 104 MG/DL (70-100); HDL CHOLESTEROL 45 MG/DL (>40); LDL CHOLESTEROL 120 MG/DL (<100); NON-HDL-C 154 MG/DL; POTASSIUM SERUM 4.1 MEQ/L (3.5-5.1); SODIUM LEVEL 142 MEQ/L (136-145); TOTAL PROTEIN 6.8 GM/DL (6.4-8.2); TRIGLYCERIDES LEVEL 168 MG/DL (<150)
== END ==
LOC: M WUC 11:32
PROVIDERS: ATTEND Nurse Practitioner Family
DX: Z00.00 Encounter for general adult medical examination without abnormal findings (principal); Z79.899 Other long term (current) drug therapy

== ENCOUNTER → 2021-02-10 | Outpatient (CLI) | payer MEDICARE, OTHER | LOC: M PAIN 11:15 | PROVIDERS: ATTEND Anesthesiology | DX: M47.812 Spondylosis without myelopathy or radiculopathy, cervical region (principal); H90.5 Unspecified sensorineural hearing loss; N40.0 Benign prostatic hyperplasia without lower urinary tract symptoms; E55.9 Vitamin D deficiency, unspecified; F17.290 Nicotine dependence, other tobacco product, uncomplicated; Z79.891 Long term (current) use of opiate analgesic; Z79.899 Other long term (current) drug therapy; Z91.030 Bee allergy status ==

== ENCOUNTER → 2021-09-08 | Outpatient (CLI) | payer MEDICARE, OTHER ==
[~2021-09-08] MED LIST changes: -D31000TA2 PO; +VITA100093 PO
== END ==
LOC: M PAIN 11:30
PROVIDERS: ATTEND Anesthesiology
DX: G89.29 Other chronic pain (principal); M96.1 Postlaminectomy syndrome, not elsewhere classified; G95.20 Unspecified cord compression; N40.0 Benign prostatic hyperplasia without lower urinary tract symptoms; E55.9 Vitamin D deficiency, unspecified; M47.812 Spondylosis without myelopathy or radiculopathy, cervical region; N28.1 Cyst of kidney, acquired; F17.290 Nicotine dependence, other tobacco product, uncomplicated; Z79.891 Long term (current) use of opiate analgesic; Z79.899 Other long term (current) drug therapy; Z91.030 Bee allergy status
CPT/HCPCS: 76000; G0463

== ENCOUNTER → 2021-09-14 | Outpatient (CLI) | payer MEDICARE, OTHER ==
[~2021-09-14] MED LIST changes: +DICL20GE TP
== END ==
LOC: M LABSMTC 11:58
PROVIDERS: ATTEND Anesthesiology
DX: Z11.52 Encounter for screening for COVID-19 (principal); Z20.822 Contact with and (suspected) exposure to COVID-19

== ENCOUNTER → 2021-09-16 | Outpatient (CLI) | payer MEDICARE, BC, OTHER ==
[~2021-09-16] MED LIST changes: +ISOVUE-M 300 61% 15ML VIAL As Ordered ONE; +LIDOCAINE 1% SDV 30ML VIAL As Ordered ONE; +diazePAM 10 MG TAB As Ordered ONE; +methylPREDNISolone SUSP 40MG/ML 1ML VIAL (DEPO MEDROL) As Ordered ONE; +oxyCODONE 5MG TAB As Ordered ONE
[2021-09-16 11:25] VITALS: BP 162/77
== END ==
LOC: M IRPRO 08:49
PROVIDERS: ATTEND Anesthesiology
DX: M96.1 Postlaminectomy syndrome, not elsewhere classified (principal); Z88.6 Allergy status to analgesic agent; Z91.030 Bee allergy status; Z86.59 Personal history of other mental and behavioral disorders
CPT/HCPCS: 62321; J1030; Q9967

== ENCOUNTER → 2021-10-07 | Outpatient (CLI) | payer MEDICARE, OTHER ==
[~2021-10-07] MED LIST changes: -ISOVUE-M 300 61% 15ML VIAL As Ordered ONE; -LIDOCAINE 1% SDV 30ML VIAL As Ordered ONE; -diazePAM 10 MG TAB As Ordered ONE; -methylPREDNISolone SUSP 40MG/ML 1ML VIAL (DEPO MEDROL) As Ordered ONE; -oxyCODONE 5MG TAB As Ordered ONE
== END ==
LOC: M PAIN 11:30
PROVIDERS: ATTEND Anesthesiology
DX: M96.1 Postlaminectomy syndrome, not elsewhere classified (principal); G95.20 Unspecified cord compression; N40.0 Benign prostatic hyperplasia without lower urinary tract symptoms; H90.5 Unspecified sensorineural hearing loss; E55.9 Vitamin D deficiency, unspecified; G89.4 Chronic pain syndrome; M47.812 Spondylosis without myelopathy or radiculopathy, cervical region; F17.290 Nicotine dependence, other tobacco product, uncomplicated; Z79.891 Long term (current) use of opiate analgesic; Z79.899 Other long term (current) drug therapy; Z91.030 Bee allergy status

== ENCOUNTER → 2021-11-25 | Outpatient (CLI) | payer MEDICARE, OTHER | LOC: M PAIN 10:45 | PROVIDERS: ATTEND Nurse Practitioner Family | DX: M96.1 Postlaminectomy syndrome, not elsewhere classified (principal); F32.9 Major depressive disorder, single episode, unspecified; H90.3 Sensorineural hearing loss, bilateral; N40.0 Benign prostatic hyperplasia without lower urinary tract symptoms; E55.9 Vitamin D deficiency, unspecified; G89.4 Chronic pain syndrome; M47.812 Spondylosis without myelopathy or radiculopathy, cervical region; N28.1 Cyst of kidney, acquired; Z79.891 Long term (current) use of opiate analgesic; Z79.899 Other long term (current) drug therapy; F17.290 Nicotine dependence, other tobacco product, uncomplicated; Z91.030 Bee allergy status ==

== ENCOUNTER → 2021-12-16 | Outpatient (CLI) | payer MEDICARE, BC, OTHER | LOC: M RAD 12:38 | PROVIDERS: ATTEND Nurse Practitioner Women's Health | DX: N28.89 Other specified disorders of kidney and ureter (principal) ==

== ENCOUNTER → 2021-12-22 | Outpatient (CLI) | payer MEDICARE, OTHER | LOC: M PAIN 11:00 | PROVIDERS: ATTEND Nurse Practitioner Family | DX: M96.1 Postlaminectomy syndrome, not elsewhere classified (principal); Z79.891 Long term (current) use of opiate analgesic; F32.9 Major depressive disorder, single episode, unspecified; N40.0 Benign prostatic hyperplasia without lower urinary tract symptoms; E55.9 Vitamin D deficiency, unspecified; G89.4 Chronic pain syndrome; M47.812 Spondylosis without myelopathy or radiculopathy, cervical region; N28.1 Cyst of kidney, acquired; H90.3 Sensorineural hearing loss, bilateral; F17.290 Nicotine dependence, other tobacco product, uncomplicated; Z79.899 Other long term (current) drug therapy; Z91.030 Bee allergy status ==

== ENCOUNTER 2021-12-28 18:56 | Emergency (ER) | payer MEDICARE, OTHER ==
[~2021-12-28] VITALS: Ht 180.3 cm; Wt 87.5 kg
[2021-12-28 18:57] VITALS: BP 106/66
== END 2021-12-28 20:26 | disposition left against medical advice (07) ==
LOC: M ED 18:56
DX: Z53.21 Procedure and treatment not carried out due to patient leaving prior to being seen by health care provider (principal)

== ENCOUNTER → 2022-01-01 | Outpatient (CLI) | payer MEDICARE, OTHER | LOC: M LABSMTC 11:48 | PROVIDERS: ATTEND Anesthesiology | DX: Z01.812 Encounter for preprocedural laboratory examination (principal); Z20.822 Contact with and (suspected) exposure to COVID-19 ==

== ENCOUNTER → 2022-01-05 | Outpatient (CLI) | payer MEDICARE, OTHER ==
[~2022-01-05] MED LIST changes: +ISOVUE-M 300 61% 15ML VIAL As Ordered ONE; +LIDOCAINE 1% SDV 30ML VIAL As Ordered ONE; +diazePAM 5MG TABLET As Ordered ONE; +methylPREDNISolone SUSP 40MG/ML 1ML VIAL (DEPO MEDROL) As Ordered ONE; +oxyCODONE 5MG TAB As Ordered ONE
== END ==
LOC: M PAIN 08:30
PROVIDERS: ATTEND Anesthesiology
DX: M50.10 Cervical disc disorder with radiculopathy, unspecified cervical region (principal); M96.1 Postlaminectomy syndrome, not elsewhere classified; G89.29 Other chronic pain; E55.9 Vitamin D deficiency, unspecified; F17.290 Nicotine dependence, other tobacco product, uncomplicated; Z86.59 Personal history of other mental and behavioral disorders; Z91.030 Bee allergy status; Z79.891 Long term (current) use of opiate analgesic; Z79.899 Other long term (current) drug therapy
CPT/HCPCS: 62321; J1030; Q9967

== ENCOUNTER → 2022-01-17 | Outpatient (CLI) | payer MEDICARE, OTHER ==
[~2022-01-17] MED LIST changes: -ISOVUE-M 300 61% 15ML VIAL As Ordered ONE; -LIDOCAINE 1% SDV 30ML VIAL As Ordered ONE; -diazePAM 5MG TABLET As Ordered ONE; -methylPREDNISolone SUSP 40MG/ML 1ML VIAL (DEPO MEDROL) As Ordered ONE; -oxyCODONE 5MG TAB As Ordered ONE
== END ==
LOC: M PAIN 14:30
PROVIDERS: ATTEND Nurse Practitioner Family
DX: M96.1 Postlaminectomy syndrome, not elsewhere classified (principal); G89.29 Other chronic pain; E55.9 Vitamin D deficiency, unspecified; F17.290 Nicotine dependence, other tobacco product, uncomplicated; Z86.59 Personal history of other mental and behavioral disorders; Z91.030 Bee allergy status; Z79.891 Long term (current) use of opiate analgesic; Z79.899 Other long term (current) drug therapy

== ENCOUNTER → 2022-04-17 | Outpatient (CLI) | payer MEDICARE, OTHER | LOC: M PAIN 15:45 | PROVIDERS: ATTEND Anesthesiology | DX: M96.1 Postlaminectomy syndrome, not elsewhere classified (principal); F32.9 Major depressive disorder, single episode, unspecified; H90.3 Sensorineural hearing loss, bilateral; N40.0 Benign prostatic hyperplasia without lower urinary tract symptoms; E55.9 Vitamin D deficiency, unspecified; G89.4 Chronic pain syndrome; M47.812 Spondylosis without myelopathy or radiculopathy, cervical region; N28.1 Cyst of kidney, acquired; M54.2 Cervicalgia; Z98.1 Arthrodesis status; F17.290 Nicotine dependence, other tobacco product, uncomplicated; Z79.891 Long term (current) use of opiate analgesic; Z79.899 Other long term (current) drug therapy; Z91.030 Bee allergy status ==

== ENCOUNTER → 2022-08-31 | Outpatient (CLI) | payer MEDICARE, OTHER ==
[~2022-08-31] MED LIST changes: +FLUT50SP17; -FLUTISP
== END ==
LOC: M PAIN 10:45
PROVIDERS: ATTEND Nurse Practitioner Family
DX: M50.10 Cervical disc disorder with radiculopathy, unspecified cervical region (principal); M96.1 Postlaminectomy syndrome, not elsewhere classified; G89.29 Other chronic pain; N40.0 Benign prostatic hyperplasia without lower urinary tract symptoms; E55.9 Vitamin D deficiency, unspecified; G89.4 Chronic pain syndrome; M47.812 Spondylosis without myelopathy or radiculopathy, cervical region; N28.1 Cyst of kidney, acquired; H90.3 Sensorineural hearing loss, bilateral; F17.290 Nicotine dependence, other tobacco product, uncomplicated; Z79.891 Long term (current) use of opiate analgesic; Z79.899 Other long term (current) drug therapy; Z91.030 Bee allergy status

== ENCOUNTER → 2022-09-08 | Outpatient (CLI) | payer MEDICARE, OTHER, BC ==
[2022-09-08 10:37] LABS: ALBUMIN 3.5 G/DL (3.2-5.2); ALKALINE PHOSPHATASE 68 U/L (46-116); ALT/SGPT 18 U/L (7.0-40); AST/SGOT 11 U/L (<34); BILIRUBIN,TOTAL 0.4 MG/DL (0.3-1.2); BLOOD UREA NITROGEN 22 MG/DL (9-23); CALCIUM LEVEL 9.3 MG/DL (8.3-10.6); CARBON DIOXIDE LEVEL 29 MMOL/L (20-31); CHLORIDE LEVEL 106 MMOL/L (98-107); CHOLESTEROL LEVEL 160 MG/DL (<200); CHOLESTEROL RISK RATIO 4.63 (<5); CREATININE FOR GFR 1.12 MG/DL (0.70-1.30); GLOMERULAR FILTRATION RATE > 60.0 (>42); GLUCOSE, FASTING 107 MG/DL (74-106); HDL CHOLESTEROL 34.5 MG/DL (>40); LDL CHOLESTEROL 100.5 MG/DL (<100); NON-HDL-C 125.5 MG/DL; POTASSIUM SERUM 4.3 MMOL/L (3.5-5.1); SODIUM LEVEL 140 MMOL/L (136-145); TOTAL PROTEIN 6.4 G/DL (5.7-8.2); TRIGLYCERIDES LEVEL 125 MG/DL (<150)
== END ==
LOC: M RAD 08:33
PROVIDERS: ATTEND Nurse Practitioner Family
DX: F17.210 Nicotine dependence, cigarettes, uncomplicated (principal); Z79.899 Other long term (current) drug therapy

== ENCOUNTER → 2022-09-22 | Outpatient (CLI) | payer MEDICARE, OTHER ==
[~2022-09-22] MED LIST changes: +ISOVUE-M 300 61% 15ML VIAL As Ordered ONE; +LIDOCAINE 1% SDV 30ML VIAL As Ordered ONE; +diazePAM 5MG TABLET As Ordered ONE; +methylPREDNISolone SUSP 40MG/ML 1ML VIAL (DEPO MEDROL) As Ordered ONE; +oxyCODONE 5MG TAB As Ordered ONE
== END ==
LOC: M PAIN 14:30
PROVIDERS: ATTEND Anesthesiology
DX: M96.1 Postlaminectomy syndrome, not elsewhere classified (principal); F32.A Depression, unspecified; H90.3 Sensorineural hearing loss, bilateral; N40.0 Benign prostatic hyperplasia without lower urinary tract symptoms; E55.9 Vitamin D deficiency, unspecified; G89.4 Chronic pain syndrome; M47.812 Spondylosis without myelopathy or radiculopathy, cervical region; F17.210 Nicotine dependence, cigarettes, uncomplicated; Z79.891 Long term (current) use of opiate analgesic; Z79.899 Other long term (current) drug therapy; Z91.030 Bee allergy status
CPT/HCPCS: 62321; J1030; Q9967

== ENCOUNTER → 2022-09-27 | Outpatient (CLI) | payer MEDICARE, OTHER ==
[~2022-09-27] MED LIST changes: -ISOVUE-M 300 61% 15ML VIAL As Ordered ONE; -LIDOCAINE 1% SDV 30ML VIAL As Ordered ONE; -diazePAM 5MG TABLET As Ordered ONE; -methylPREDNISolone SUSP 40MG/ML 1ML VIAL (DEPO MEDROL) As Ordered ONE; -oxyCODONE 5MG TAB As Ordered ONE
== END ==
LOC: M PAIN 11:15 → M TMPAIN 11:15
PROVIDERS: ATTEND Anesthesiology
DX: M96.1 Postlaminectomy syndrome, not elsewhere classified (principal); F32.A Depression, unspecified; H90.3 Sensorineural hearing loss, bilateral; N40.0 Benign prostatic hyperplasia without lower urinary tract symptoms; E55.9 Vitamin D deficiency, unspecified; G89.4 Chronic pain syndrome; M47.812 Spondylosis without myelopathy or radiculopathy, cervical region; N28.1 Cyst of kidney, acquired; M54.2 Cervicalgia; F17.210 Nicotine dependence, cigarettes, uncomplicated; Z79.891 Long term (current) use of opiate analgesic; Z91.030 Bee allergy status

== ENCOUNTER → 2022-10-06 | Outpatient (CLI) | payer MEDICARE, BC, OTHER | LOC: M RAD 10:32 | PROVIDERS: ATTEND Nurse Practitioner Family | DX: Z12.2 Encounter for screening for malignant neoplasm of respiratory organs (principal); F17.210 Nicotine dependence, cigarettes, uncomplicated; R91.8 Other nonspecific abnormal finding of lung field ==

== ENCOUNTER → 2022-10-24 | Outpatient (CLI) | payer MEDICARE, OTHER ==
[~2022-10-24] MED LIST changes: +CVS2500C PO; +MODA200T15 PO; +OXYC30TA72 PO
== END ==
LOC: M PAIN 11:30
PROVIDERS: ATTEND Nurse Practitioner Family
DX: M79.18 Myalgia, other site (principal); G89.4 Chronic pain syndrome; M54.50 Low back pain, unspecified; H90.3 Sensorineural hearing loss, bilateral; N40.0 Benign prostatic hyperplasia without lower urinary tract symptoms; E55.9 Vitamin D deficiency, unspecified; M47.812 Spondylosis without myelopathy or radiculopathy, cervical region; N28.1 Cyst of kidney, acquired; M54.2 Cervicalgia; F17.290 Nicotine dependence, other tobacco product, uncomplicated; Z79.891 Long term (current) use of opiate analgesic; Z79.899 Other long term (current) drug therapy; Z91.030 Bee allergy status

== ENCOUNTER 2022-11-08 08:04 | Day surgery (SDC) | payer MEDICARE, BC, OTHER ==
[~2022-11-08] VITALS: Ht 177.8 cm; Wt 87.1 kg
[~2022-11-08 08:04] MED LIST changes: +NS 1,000 ML IV ONE
[2022-11-08] MEDS ORDERED: LIDOCAINE 2% 100MG/5ML SDV (FOR ANES.) As Ordered ONE (09:03)
[2022-11-08] MEDS ORDERED: propofoL 200 MG/20 ML VIAL As Ordered ONE ×2 (09:04→09:15)
[2022-11-08 09:54] VITALS: BP 159/85; TEMP 97.3; O2SAT 99
== END 2022-11-08 09:56 | disposition home or self-care (01) ==
LOC: M OPP 08:04
PROVIDERS: ATTEND Surgery
DX: Z12.11 Encounter for screening for malignant neoplasm of colon (principal); Z86.010 Personal history of colon polyps; K64.0 First degree hemorrhoids; Z87.891 Personal history of nicotine dependence; Z79.891 Long term (current) use of opiate analgesic; Z79.899 Other long term (current) drug therapy; Z88.6 Allergy status to analgesic agent; Z91.030 Bee allergy status

== ENCOUNTER → 2022-11-09 | Outpatient (CLI) | payer MEDICARE, OTHER ==
[~2022-11-09] MED LIST changes: -NS 1,000 ML IV ONE
== END ==
LOC: M PAIN 11:30
PROVIDERS: ATTEND Nurse Practitioner Family
DX: M50.10 Cervical disc disorder with radiculopathy, unspecified cervical region (principal); M96.1 Postlaminectomy syndrome, not elsewhere classified; G89.4 Chronic pain syndrome; H90.3 Sensorineural hearing loss, bilateral; N40.0 Benign prostatic hyperplasia without lower urinary tract symptoms; E55.9 Vitamin D deficiency, unspecified; M47.812 Spondylosis without myelopathy or radiculopathy, cervical region; Z87.891 Personal history of nicotine dependence; Z79.891 Long term (current) use of opiate analgesic; Z79.899 Other long term (current) drug therapy; Z91.030 Bee allergy status

== ENCOUNTER → 2022-12-09 | Outpatient (CLI) | payer MEDICARE, BC, OTHER ==
[2022-12-09 14:24] LABS: BLOOD UREA NITROGEN 20 MG/DL (9-23); CALCIUM LEVEL 9.3 MG/DL (8.3-10.6); CARBON DIOXIDE LEVEL 31 MMOL/L (20-31); CHLORIDE LEVEL 104 MMOL/L (98-107); CREATININE FOR GFR 1.21 MG/DL (0.70-1.30); GLOMERULAR FILTRATION RATE > 60.0 (>42); GLUCOSE, FASTING 100 MG/DL (74-106); POTASSIUM SERUM 4.7 MMOL/L (3.5-5.1); SODIUM LEVEL 140 MMOL/L (136-145)
== END ==
LOC: M LAB 13:23
PROVIDERS: ATTEND Physician Assistant
DX: N28.89 Other specified disorders of kidney and ureter (principal)

== ENCOUNTER → 2022-12-15 | Outpatient (CLI) | payer MEDICARE, BC, OTHER ==
[~2022-12-15] MED LIST changes: +ISOVUE-370 76% 100ML VIAL As Ordered ONE
== END ==
LOC: M RAD 14:05
PROVIDERS: ATTEND Physician Assistant
DX: N28.89 Other specified disorders of kidney and ureter (principal); N20.0 Calculus of kidney; N28.1 Cyst of kidney, acquired
CPT/HCPCS: 74170; Q9967

== ENCOUNTER → 2022-12-21 | Outpatient (CLI) | payer MEDICARE, BC, OTHER ==
[~2022-12-21] MED LIST changes: -ISOVUE-370 76% 100ML VIAL As Ordered ONE
== END ==
LOC: M PLAIMG 09:34
PROVIDERS: ATTEND Nurse Practitioner Family
DX: M51.16 Intervertebral disc disorders with radiculopathy, lumbar region (principal)

== ENCOUNTER → 2022-12-22 | Outpatient (CLI) | payer MEDICARE, OTHER ==
[~2022-12-22] MED LIST changes: +TRIAMCINOLONE ACETONIDE SUSP 40MG/ML 1ML VIAL As Ordered ONE; +diazePAM 5MG TABLET As Ordered ONE
== END ==
LOC: M PAIN 10:30
PROVIDERS: ATTEND Anesthesiology
DX: M79.18 Myalgia, other site (principal); G89.29 Other chronic pain; E55.9 Vitamin D deficiency, unspecified; F17.290 Nicotine dependence, other tobacco product, uncomplicated; Z86.59 Personal history of other mental and behavioral disorders; Z91.030 Bee allergy status; Z79.891 Long term (current) use of opiate analgesic; Z79.899 Other long term (current) drug therapy
CPT/HCPCS: 20552; J0665; J3301

== ENCOUNTER → 2023-01-16 | Outpatient (CLI) | payer MEDICARE, OTHER ==
[~2023-01-16] MED LIST changes: +ISOVUE-M 300 61% 15ML VIAL As Ordered ONE; +LIDOCAINE 1% SDV 30ML VIAL As Ordered ONE; -TRIAMCINOLONE ACETONIDE SUSP 40MG/ML 1ML VIAL As Ordered ONE; +methylPREDNISolone SUSP 40MG/ML 1ML VIAL (DEPO MEDROL) As Ordered ONE; +oxyCODONE 5MG TAB As Ordered ONE
== END ==
LOC: M PAIN 12:45
PROVIDERS: ATTEND Anesthesiology
DX: M50.13 Cervical disc disorder with radiculopathy, cervicothoracic region (principal); F32.A Depression, unspecified; H90.3 Sensorineural hearing loss, bilateral; N40.0 Benign prostatic hyperplasia without lower urinary tract symptoms; E55.9 Vitamin D deficiency, unspecified; G89.4 Chronic pain syndrome; M47.812 Spondylosis without myelopathy or radiculopathy, cervical region; N28.1 Cyst of kidney, acquired; F17.290 Nicotine dependence, other tobacco product, uncomplicated; Z91.030 Bee allergy status; Z79.891 Long term (current) use of opiate analgesic; Z79.899 Other long term (current) drug therapy
CPT/HCPCS: 62321; J1030; Q9967

== ENCOUNTER → 2023-01-19 | Outpatient (CLI) | payer MEDICARE, OTHER ==
[~2023-01-19] MED LIST changes: -ISOVUE-M 300 61% 15ML VIAL As Ordered ONE; -LIDOCAINE 1% SDV 30ML VIAL As Ordered ONE; -diazePAM 5MG TABLET As Ordered ONE; -methylPREDNISolone SUSP 40MG/ML 1ML VIAL (DEPO MEDROL) As Ordered ONE; -oxyCODONE 5MG TAB As Ordered ONE
== END ==
LOC: M PAIN 10:45
PROVIDERS: ATTEND Nurse Practitioner Family
DX: M79.18 Myalgia, other site (principal); G89.29 Other chronic pain; Z79.891 Long term (current) use of opiate analgesic; H90.3 Sensorineural hearing loss, bilateral; N40.0 Benign prostatic hyperplasia without lower urinary tract symptoms; E55.9 Vitamin D deficiency, unspecified; M47.812 Spondylosis without myelopathy or radiculopathy, cervical region; F17.290 Nicotine dependence, other tobacco product, uncomplicated; Z79.899 Other long term (current) drug therapy; Z91.030 Bee allergy status

== ENCOUNTER → 2023-01-29 | Outpatient (CLI) | payer MEDICARE, OTHER | LOC: M PAIN 10:00 | PROVIDERS: ATTEND Nurse Practitioner Family | DX: M50.10 Cervical disc disorder with radiculopathy, unspecified cervical region (principal); F32.9 Major depressive disorder, single episode, unspecified; H90.3 Sensorineural hearing loss, bilateral; N40.0 Benign prostatic hyperplasia without lower urinary tract symptoms; E55.9 Vitamin D deficiency, unspecified; G89.4 Chronic pain syndrome; M47.812 Spondylosis without myelopathy or radiculopathy, cervical region; F17.200 Nicotine dependence, unspecified, uncomplicated; Z79.891 Long term (current) use of opiate analgesic; Z79.899 Other long term (current) drug therapy; Z91.030 Bee allergy status ==

== ENCOUNTER → 2023-08-28 | Outpatient (CLI) | payer MEDICARE, BC ==
[~2023-08-28] MED LIST changes: -FLUT50SP17; +FLUTISP
== END ==
LOC: M PAIN 14:30
PROVIDERS: ATTEND Nurse Practitioner Family
DX: M96.1 Postlaminectomy syndrome, not elsewhere classified (principal); Z79.891 Long term (current) use of opiate analgesic; G89.4 Chronic pain syndrome; H90.3 Sensorineural hearing loss, bilateral; N40.0 Benign prostatic hyperplasia without lower urinary tract symptoms; E55.9 Vitamin D deficiency, unspecified; M47.812 Spondylosis without myelopathy or radiculopathy, cervical region; F17.290 Nicotine dependence, other tobacco product, uncomplicated; Z79.899 Other long term (current) drug therapy; Z91.030 Bee allergy status

== ENCOUNTER → 2023-10-02 | Outpatient (CLI) | payer MEDICARE, BC | LOC: M PAIN 11:45 | PROVIDERS: ATTEND Nurse Practitioner Family | DX: M96.1 Postlaminectomy syndrome, not elsewhere classified (principal); Z79.891 Long term (current) use of opiate analgesic; H90.3 Sensorineural hearing loss, bilateral; N40.0 Benign prostatic hyperplasia without lower urinary tract symptoms; E55.9 Vitamin D deficiency, unspecified; G89.4 Chronic pain syndrome; M47.812 Spondylosis without myelopathy or radiculopathy, cervical region; M54.2 Cervicalgia; F17.210 Nicotine dependence, cigarettes, uncomplicated; Z79.899 Other long term (current) drug therapy; Z91.030 Bee allergy status ==

== ENCOUNTER → 2023-10-18 | Outpatient (CLI) | payer MEDICARE, BC | LOC: M PAIN 17:00 | PROVIDERS: ATTEND Nurse Practitioner Family | DX: M50.10 Cervical disc disorder with radiculopathy, unspecified cervical region (principal); M96.1 Postlaminectomy syndrome, not elsewhere classified; N40.0 Benign prostatic hyperplasia without lower urinary tract symptoms; H90.3 Sensorineural hearing loss, bilateral; E55.9 Vitamin D deficiency, unspecified; G89.4 Chronic pain syndrome; M47.812 Spondylosis without myelopathy or radiculopathy, cervical region; F17.200 Nicotine dependence, unspecified, uncomplicated; Z79.891 Long term (current) use of opiate analgesic; Z79.899 Other long term (current) drug therapy; Z91.030 Bee allergy status ==

== ENCOUNTER → 2023-11-30 | Outpatient (CLI) | payer MEDICARE, BC | LOC: M PAIN 11:45 | PROVIDERS: ATTEND Nurse Practitioner Family | DX: M96.1 Postlaminectomy syndrome, not elsewhere classified (principal); M54.2 Cervicalgia; H90.3 Sensorineural hearing loss, bilateral; N40.0 Benign prostatic hyperplasia without lower urinary tract symptoms; E55.9 Vitamin D deficiency, unspecified; G89.4 Chronic pain syndrome; M47.812 Spondylosis without myelopathy or radiculopathy, cervical region; F17.290 Nicotine dependence, other tobacco product, uncomplicated; Z79.891 Long term (current) use of opiate analgesic; Z79.899 Other long term (current) drug therapy; Z91.030 Bee allergy status ==

== ENCOUNTER → 2023-12-17 | Outpatient (CLI) | payer MEDICARE, BC ==
[~2023-12-17] MED LIST changes: +ALPR0.25 PO; +ASPI81CH8 PO; +ATOR40TA75 PO; +CLOP75TA2 PO; +DICL20GE TOP; -DICL20GE TP; +MULTTAB61 PO; +OXYC10TA12 PO; +OXYC20TA40 PO; +PRES10CA2 PO; +ROPI0.5T33 PO
== END ==
LOC: M PAIN 16:00
PROVIDERS: ATTEND Nurse Practitioner Family
DX: M96.1 Postlaminectomy syndrome, not elsewhere classified (principal); G89.4 Chronic pain syndrome; M54.2 Cervicalgia; H90.3 Sensorineural hearing loss, bilateral; N40.0 Benign prostatic hyperplasia without lower urinary tract symptoms; E55.9 Vitamin D deficiency, unspecified; M47.812 Spondylosis without myelopathy or radiculopathy, cervical region; F17.200 Nicotine dependence, unspecified, uncomplicated; Z79.891 Long term (current) use of opiate analgesic; Z79.899 Other long term (current) drug therapy; Z91.030 Bee allergy status

== ENCOUNTER → 2023-12-25 | Outpatient (CLI) | payer MEDICARE, BC ==
[~2023-12-25] MED LIST changes: -ALPR0.25 PO; -ASPI81CH8 PO; -ATOR40TA75 PO; -CLOP75TA2 PO; -DICL20GE TOP; +DICL20GE TP; +ISOVUE-M 300 61% 15ML VIAL As Ordered ONE; +LIDOCAINE 1% SDV 30ML VIAL As Ordered ONE; -MULTTAB61 PO; -OXYC10TA12 PO; -OXYC20TA40 PO; -PRES10CA2 PO; -ROPI0.5T33 PO; +dexAMETHasone 10MG/1ML VIAL PRES.FREE As Ordered ONE; +diazePAM 5MG TABLET As Ordered ONE; +oxyCODONE 5MG TAB As Ordered ONE
== END ==
LOC: M PAIN 15:00
PROVIDERS: ATTEND Anesthesiology
DX: M50.13 Cervical disc disorder with radiculopathy, cervicothoracic region (principal); G89.4 Chronic pain syndrome; H90.3 Sensorineural hearing loss, bilateral; N40.0 Benign prostatic hyperplasia without lower urinary tract symptoms; E55.9 Vitamin D deficiency, unspecified; M47.812 Spondylosis without myelopathy or radiculopathy, cervical region; F17.210 Nicotine dependence, cigarettes, uncomplicated; Z79.891 Long term (current) use of opiate analgesic; Z79.899 Other long term (current) drug therapy; Z91.030 Bee allergy status
CPT/HCPCS: 62321; J1100; Q9967

== ENCOUNTER 2024-01-01 14:51 | Observation (INO) | payer MEDICARE, BC ==
[~2024-01-01] VITALS: Ht 177.8 cm; Wt 86.4 kg
[~2024-01-01 14:51] MED LIST changes: +DICL20GE TOP; -DICL20GE TP; -ISOVUE-M 300 61% 15ML VIAL As Ordered ONE; -LIDOCAINE 1% SDV 30ML VIAL As Ordered ONE; -dexAMETHasone 10MG/1ML VIAL PRES.FREE As Ordered ONE; -diazePAM 5MG TABLET As Ordered ONE; -oxyCODONE 5MG TAB As Ordered ONE
[2024-01-01 16:19] VITALS: BP 133/74; TEMP 96.8; O2SAT 99
[2024-01-01] MEDS ORDERED: ISOVUE-370 76% 100ML VIAL As Ordered ONE (16:20)
[2024-01-01 16:36] LABS: BASO # 0.1 10^3/uL (0.0-0.2); BASO % 0.8 % (0.0-1.0); EOS # 0.2 10^3/uL (0.0-0.5); EOS % 2.4 % (0.0-3.0); HEMATOCRIT 43.6 % (42.0-52.0); LYMPH % 35.9 % (24.0-44.0); MEAN CORPUSCULAR HEMOGLOBIN 32.8 pg (27.0-33.0); MEAN CORPUSCULAR HGB CONC 34.4 g/dl (32.0-36.5); MEAN CORPUSCULAR VOLUME 95.2 fl (80.0-96.0); MONO # 0.6 10^3/uL (0.0-0.8); MONO % 6.7 % (2.0-8.0); NEUTROPHILS # 4.5 10^3/uL (1.5-8.5); PLATELET COUNT, AUTOMATED 180 10^3/uL (150-450); RED BLOOD COUNT 4.58 10^6/uL (4.30-6.10); WHITE BLOOD COUNT 8.3 10^3/uL (4.0-10.0)
[2024-01-01 17:11] LABS: PARTIAL THROMBOPLASTIN TIME 28.5 SECONDS (24.8-34.2); PROTHROMBIN TIME 12.9 SECONDS (12.5-14.5)
[2024-01-01] MEDS ORDERED: ATOR40TA75 PO (18:38)
[2024-01-01] MEDS ORDERED: ROPI0.5T33 PO (18:38)
[2024-01-01] MEDS ORDERED: OXYC10TA12 PO (18:38)
[2024-01-01] MEDS ORDERED: ALPR0.25 PO (18:38)
[2024-01-01] MEDS ORDERED: PRES10CA2 PO (18:38)
[2024-01-01] MEDS ORDERED: OXYC20TA40 PO (18:38)
[2024-01-01] MEDS ORDERED: MULTTAB61 PO (18:38)
[2024-01-01] MEDS ORDERED: HOME MED LIST COMPLETE! XX SCH (18:40)
[2024-01-01] MEDS ORDERED: rOPINIRole 0.25 MG TAB(REQUIP) PO PRN (18:50)
[2024-01-01] MEDS ORDERED: ALPRAZolam 0.25 MG TAB PO PRN (18:50)
[2024-01-01] MEDS: CLOPIDOGREL 75 MG TAB PO SCH (19:14)
[2024-01-01] MEDS: ATORVASTATIN 20 MG TAB PO SCH (19:14)
[2024-01-01] MEDS: ASPIRIN 81MG CHEW TABLET PO SCH (19:14)
[2024-01-01 19:59] LABS: ALBUMIN 3.3 G/DL (3.2-5.2); ALKALINE PHOSPHATASE 70 U/L (46-116); ALT/SGPT 18 U/L (7.0-40); AST/SGOT 12 U/L (<34); BILIRUBIN,TOTAL 0.4 MG/DL (0.3-1.2); BLOOD UREA NITROGEN 18 MG/DL (9-23); CALCIUM LEVEL 9.4 MG/DL (8.3-10.6); CARBON DIOXIDE LEVEL 31 MMOL/L (20-31); CHLORIDE LEVEL 106 MMOL/L (98-107); CHOLESTEROL LEVEL 164 MG/DL (<200); CHOLESTEROL RISK RATIO 4.72 (<5); CREATININE FOR GFR 1.14 MG/DL (0.70-1.30); GLOMERULAR FILTRATION RATE > 60.0 (>42); GLUCOSE, FASTING 94 MG/DL (74-106); HDL CHOLESTEROL 34.7 MG/DL (>40); LDL CHOLESTEROL 94.1 MG/DL (<100); NON-HDL-C 129.3 MG/DL; POTASSIUM SERUM 4.9 MMOL/L (3.5-5.1); SODIUM LEVEL 139 MMOL/L (136-145); TOTAL PROTEIN 6.4 G/DL (5.7-8.2); TRIGLYCERIDES LEVEL 176 MG/DL (<150)
[2024-01-01 20:02] LABS: THYROID STIMULATING HORMONE 0.707 uIU/ML (0.55-4.78)
[2024-01-01 20:31] LABS: HEMOGLOBIN A1c 5.5 % (4.0-6.0)
[2024-01-01] MEDS ORDERED: MODAFINIL 100 MG TABLET PO PRN (21:00)
[2024-01-01] MEDS: TAMSULOSIN 0.4 MG CAP PO SCH (22:22)
[2024-01-01] MEDS: oxyCODONE 5MG TAB PO PRN (22:23)
[2024-01-01] MEDS: oxyCODONE 10 MG CR TAB PO ONE (22:25)
[2024-01-01] MEDS: DICLOFENAC EPOLAMINE 1.3% PATCH TOP SCH (22:28)
[2024-01-02] VITALS (7 sets, daily range): BP systolic 101–136; BP diastolic 59–82; TEMP 97.2–97.8; O2SAT 95–97
[2024-01-02] MEDS: UNRESOLVED PATIENT OWN MED ORDER XX SCH (09:00)
[2024-01-02] MEDS ORDERED: ENTER DRUG NAME HERE (PATIENT'S OWN MED) TOP SCH (09:00)
[2024-01-02] MEDS: ENOXAPARIN 40MG/0.4ML SYRINGE (J1650 PER 10MG) SC SCH (09:23)
[2024-01-02] MEDS: MULTIVITAMINS/MINERALS THERAP 1 TAB PO SCH (09:24)
[2024-01-02] MEDS: MAGNESIUM OXIDE 400MG TAB (MAG-OX) PO SCH (09:24)
[2024-01-02] MEDS: CYANOCOBALAMIN 500 MCG TAB PO SCH (09:26)
[2024-01-02] MEDS: VITAMIN D 1,000 INTERNATIONAL UNITS TABLET PO SCH (09:26)
[2024-01-02] MEDS: oxyCODONE 20MG CR TAB PO SCH (09:38)
[2024-01-02] MEDS: oxyCODONE 10 MG CR TAB PO SCH (22:06)
[2024-01-03 04:17] VITALS: BP 118/86; TEMP 98.3; O2SAT 97
[2024-01-03 07:51] VITALS: BP 116/76; TEMP 98; O2SAT 94
[2024-01-03] MEDS ORDERED: CLOP75TA2 PO (07:57)
[2024-01-03] MEDS ORDERED: ASPI81CH8 PO (07:57)
== END 2024-01-03 10:18 | disposition home or self-care (01) ==
LOC: M ED 14:51 → M ED INP 14:52 → M PCU 01-03 04:19
PROVIDERS: ADMIT Student in an Organized Health Care Education/Training Program; ATTEND Student in an Organized Health Care Education/Training Program
DX: I63.521 Cerebral infarction due to unspecified occlusion or stenosis of right anterior cerebral artery (principal); R42 Dizziness and giddiness; M47.812 Spondylosis without myelopathy or radiculopathy, cervical region; M54.9 Dorsalgia, unspecified; G89.29 Other chronic pain; E55.9 Vitamin D deficiency, unspecified; N40.0 Benign prostatic hyperplasia without lower urinary tract symptoms; H90.5 Unspecified sensorineural hearing loss; F41.9 Anxiety disorder, unspecified; F17.210 Nicotine dependence, cigarettes, uncomplicated; Z87.442 Personal history of urinary calculi; F19.11 Other psychoactive substance abuse, in remission; Z98.890 Other specified postprocedural states; Z98.1 Arthrodesis status; Z90.89 Acquired absence of other organs; Z96.89 Presence of other specified functional implants; Z88.8 Allergy status to other drugs, medicaments and biological substances; Z91.030 Bee allergy status
CPT/HCPCS: 36415; 70450; 70496; 70498; 71045; 80047; 80053; 80061; 82525; 82607; 83036; 84207; 84425; 84443; 85025; 85610; 85730; 92610; 93005; 93041; 93306; 94760; 96372; 97161; 97165; 97530; 99285; G0378; J1650; Q9967

== ENCOUNTER → 2024-01-15 | Outpatient (CLI) | payer MEDICARE, BC ==
[~2024-01-15] MED LIST changes: +ALPR0.25 PO; +ASPI81CH8 PO; +ATOR40TA75 PO; +CLOP75TA2 PO; +MULTTAB61 PO; +OXYC10TA12 PO; +OXYC20TA40 PO; +PRES10CA2 PO; +ROPI0.5T33 PO
== END ==
LOC: M RAD 16:37
PROVIDERS: ATTEND Physician Assistant
DX: N23 Unspecified renal colic (principal); N20.0 Calculus of kidney; N28.1 Cyst of kidney, acquired; K57.30 Diverticulosis of large intestine without perforation or abscess without bleeding

== ENCOUNTER → 2024-01-24 | Outpatient (CLI) | payer MEDICARE, BC | LOC: M PAIN 11:30 | PROVIDERS: ATTEND Nurse Practitioner Family | DX: M96.1 Postlaminectomy syndrome, not elsewhere classified (principal); G89.4 Chronic pain syndrome; F17.210 Nicotine dependence, cigarettes, uncomplicated; H90.3 Sensorineural hearing loss, bilateral; E55.9 Vitamin D deficiency, unspecified; N40.0 Benign prostatic hyperplasia without lower urinary tract symptoms; Z91.030 Bee allergy status; Z79.82 Long term (current) use of aspirin; Z79.891 Long term (current) use of opiate analgesic; Z79.899 Other long term (current) drug therapy ==

== ENCOUNTER 2024-02-07 07:50 | Day surgery (SDC) | payer MEDICARE, BC ==
[~2024-02-07] VITALS: Ht 177.8 cm; Wt 89.4 kg
[2024-02-07] MEDS ORDERED: LIDOCAINE 2% 100MG/5ML SDV (FOR ANES.) As Ordered ONE (08:48)
[2024-02-07] MEDS ORDERED: propofoL 500 MG/50 ML VIAL As Ordered ONE (08:48)
[2024-02-07] MEDS ORDERED: LR 1,000 ML IV SCH (09:10)
[2024-02-07] MEDS: ceFAZolin SOD 2 GM in IV 1 EA IV ONE (09:25)
[2024-02-07] MEDS ORDERED: KETAMINE HCL 200MG/20ML VIAL As Ordered ONE (09:27)
[2024-02-07] MEDS ORDERED: MIDAZOLAM INJ 2MG/2ML VIAL As Ordered ONE (09:35)
[2024-02-07] MEDS ORDERED: dexmedeTOMIDine (4MCG/ML)200MCG/50ML BTL (PRECEDEX) As Ordered ONE (09:40)
[2024-02-07] MEDS ORDERED: fentaNYL 100 MCG/2 ML INJECTION As Ordered ONE (09:47)
[2024-02-07 10:38] VITALS: BP 130/82; TEMP 97.3; O2SAT 97
== END 2024-02-07 10:40 | disposition home or self-care (01) ==
LOC: M SDC 07:50
PROVIDERS: ATTEND Urology
DX: N20.0 Calculus of kidney (principal); N40.0 Benign prostatic hyperplasia without lower urinary tract symptoms; Z86.73 Personal history of transient ischemic attack (TIA), and cerebral infarction without residual deficits; Z79.899 Other long term (current) drug therapy; Z88.8 Allergy status to other drugs, medicaments and biological substances; Z91.030 Bee allergy status; Z88.6 Allergy status to analgesic agent; F17.210 Nicotine dependence, cigarettes, uncomplicated
CPT/HCPCS: 50590; 74018; J0690; J2250; J3010

== ENCOUNTER → 2024-02-26 | Outpatient (CLI) | payer MEDICARE, BC | LOC: M PLAIMG 14:19 | PROVIDERS: ATTEND Urology | DX: N20.0 Calculus of kidney (principal) ==

== ENCOUNTER → 2024-02-28 | Outpatient (CLI) | payer MEDICARE, BC | LOC: M PAIN 16:00 | PROVIDERS: ATTEND Nurse Practitioner Family | DX: M96.1 Postlaminectomy syndrome, not elsewhere classified (principal); M25.512 Pain in left shoulder; M25.511 Pain in right shoulder; G89.29 Other chronic pain; M54.2 Cervicalgia; H90.3 Sensorineural hearing loss, bilateral; N40.0 Benign prostatic hyperplasia without lower urinary tract symptoms; E55.9 Vitamin D deficiency, unspecified; M47.812 Spondylosis without myelopathy or radiculopathy, cervical region; I48.91 Unspecified atrial fibrillation; Z79.01 Long term (current) use of anticoagulants; Z79.891 Long term (current) use of opiate analgesic; Z79.899 Other long term (current) drug therapy; Z91.030 Bee allergy status ==

== ENCOUNTER → 2024-03-19 | Outpatient (CLI) | payer MEDICARE, BC | LOC: M PAIN 15:30 | PROVIDERS: ATTEND Anesthesiology | DX: M25.512 Pain in left shoulder (principal); M96.1 Postlaminectomy syndrome, not elsewhere classified; M79.10 Myalgia, unspecified site; M79.18 Myalgia, other site; H90.3 Sensorineural hearing loss, bilateral; N40.0 Benign prostatic hyperplasia without lower urinary tract symptoms; E55.9 Vitamin D deficiency, unspecified; G89.4 Chronic pain syndrome; M47.812 Spondylosis without myelopathy or radiculopathy, cervical region; I48.91 Unspecified atrial fibrillation; Z79.01 Long term (current) use of anticoagulants; Z79.82 Long term (current) use of aspirin; Z79.891 Long term (current) use of opiate analgesic; Z79.899 Other long term (current) drug therapy; Z91.030 Bee allergy status ==

== ENCOUNTER → 2024-03-21 | Outpatient (CLI) | payer MEDICARE, BC ==
[~2024-03-21] MED LIST changes: +TRIAMCINOLONE ACETONIDE SUSP 40MG/ML 1ML VIAL As Ordered ONE
== END ==
LOC: M PAIN 08:30
PROVIDERS: ATTEND Anesthesiology
DX: M79.18 Myalgia, other site (principal); G89.29 Other chronic pain; H90.3 Sensorineural hearing loss, bilateral; N40.0 Benign prostatic hyperplasia without lower urinary tract symptoms; E55.9 Vitamin D deficiency, unspecified; M47.812 Spondylosis without myelopathy or radiculopathy, cervical region; I48.91 Unspecified atrial fibrillation; F17.210 Nicotine dependence, cigarettes, uncomplicated; Z79.82 Long term (current) use of aspirin; Z79.891 Long term (current) use of opiate analgesic; Z79.899 Other long term (current) drug therapy; Z79.01 Long term (current) use of anticoagulants; Z91.030 Bee allergy status
CPT/HCPCS: 20552; J0665; J3301

== ENCOUNTER → 2024-06-11 | Outpatient (CLI) | payer MEDICARE, BC ==
[~2024-06-11] MED LIST changes: -TRIAMCINOLONE ACETONIDE SUSP 40MG/ML 1ML VIAL As Ordered ONE
== END ==
LOC: M PLAIMG 12:32
PROVIDERS: ATTEND Physician Assistant
DX: N20.0 Calculus of kidney (principal)

== ENCOUNTER → 2024-06-20 | Outpatient (REF) | payer MEDICARE, BC ==
[2024-06-20 18:48] LABS: AMORPHOUS SEDIMENT SMALL (NEGATIVE); APPEARANCE, URINE CLOUDY (CLEAR); BACTERIA, URINE AUTO NEGATIVE (NEGATIVE); BILIRUBIN, URINE AUTO NEGATIVE (NEGATIVE); BLOOD, URINE BLOOD NEGATIVE (NEGATIVE); COLOR, URINE YELLOW (YELLOW); GLUCOSE, URINE (UA) AUTO NEGATIVE (NEGATIVE); KETONE, URINE AUTO NEGATIVE (NEGATIVE); LEUKOCYTE ESTERASE, URINE AUTO NEGATIVE (NEGATIVE); MUCUS, URINE SMALL (NEGATIVE); NITRITE, URINE AUTO NEGATIVE (NEGATIVE); PROTEIN, URINE AUTO NEGATIVE (NEGATIVE); RBC, URINE AUTO 5 /HPF (0-3); SPECIFIC GRAVITY URINE AUTO 1.013 (1.002-1.035); SQUAMOUS EPITHELIAL CELL UR AU 0 /HPF (0-6); UROBILINOGEN, URINE AUTO 0.2 mg/dL (0.0-2.0); WBC, URINE AUTO 1 /HPF (0-3)
== END ==
LOC: M SMT 17:00
PROVIDERS: ATTEND Physician Assistant
DX: R31.0 Gross hematuria (principal)

== ENCOUNTER → 2024-07-07 | Outpatient (CLI) | payer MEDICARE, BC | LOC: M RAD 09:54 | PROVIDERS: ATTEND Physician Assistant | DX: R31.0 Gross hematuria (principal); N20.0 Calculus of kidney; N28.1 Cyst of kidney, acquired; K40.20 Bilateral inguinal hernia, without obstruction or gangrene, not specified as recurrent; Z95.828 Presence of other vascular implants and grafts ==

== ENCOUNTER → 2024-08-01 | Outpatient (CLI) | payer MEDICARE, BC ==
[~2024-08-01] MED LIST changes: +ALPR0.5T3 PO; +ASPI1CHW2 PO; +BUPR150T12 PO; +ELIQ5TAB PO; +METO25TA4 PO; +OXYC20TA2 PO; +SELE6PA PO
[2024-08-01 15:40] LABS: CALCIUM LEVEL 9.3 MG/DL (8.3-10.6); CREATININE FOR GFR 1.17 MG/DL (0.70-1.30); GLOMERULAR FILTRATION RATE 65.4 (>42); HEMOGLOBIN 14.9 g/dl (13.5-17.5); MEAN CORPUSCULAR HEMOGLOBIN 32.3 pg (27.0-33.0); MEAN CORPUSCULAR HGB CONC 33.1 g/dl (32.0-36.5); MEAN CORPUSCULAR VOLUME 97.6 fl (80.0-96.0); PLATELET COUNT, AUTOMATED 220 10^3/uL (150-450); POTASSIUM SERUM 4.4 MMOL/L (3.5-5.1); RED BLOOD COUNT 4.61 10^6/uL (4.30-6.10)
== END ==
LOC: M PLAIMG 12:24
PROVIDERS: ATTEND Physician Assistant
DX: Z01.818 Encounter for other preprocedural examination (principal)

== ENCOUNTER 2024-08-07 06:53 | Day surgery (SDC) | payer MEDICARE, BC ==
[~2024-08-07] VITALS: Ht 177.8 cm; Wt 87.5 kg
[2024-08-07] MEDS ORDERED: LR 1,000 ML IV SCH (07:40)
[2024-08-07] MEDS ORDERED: LIDOCAINE 2% 100MG/5ML SDV (FOR ANES.) As Ordered ONE (08:05)
[2024-08-07] MEDS ORDERED: ONDANSETRON 4MG 2ML VIAL As Ordered ONE (08:05)
[2024-08-07] MEDS ORDERED: propofoL 200 MG/20 ML VIAL As Ordered ONE (08:05)
[2024-08-07] MEDS ORDERED: fentaNYL 100 MCG/2 ML INJECTION As Ordered ONE (08:33)
[2024-08-07] MEDS: ceFAZolin SOD 2 GM IV ONCE IV ONE (08:50)
[2024-08-07 10:10] VITALS: BP 141/80; TEMP 97.8; O2SAT 100
== END 2024-08-07 10:14 | disposition home or self-care (01) ==
LOC: M SDC 06:53
PROVIDERS: ATTEND Urology
DX: N20.0 Calculus of kidney (principal); N40.1 Benign prostatic hyperplasia with lower urinary tract symptoms; I48.0 Paroxysmal atrial fibrillation; R31.0 Gross hematuria; E78.5 Hyperlipidemia, unspecified; D68.69 Other thrombophilia; Z79.01 Long term (current) use of anticoagulants; Z79.899 Other long term (current) drug therapy; Z79.891 Long term (current) use of opiate analgesic; Z79.82 Long term (current) use of aspirin; Z88.4 Allergy status to anesthetic agent; Z91.030 Bee allergy status; Z88.6 Allergy status to analgesic agent; F17.210 Nicotine dependence, cigarettes, uncomplicated; Z86.73 Personal history of transient ischemic attack (TIA), and cerebral infarction without residual deficits; F32.A Depression, unspecified; F41.9 Anxiety disorder, unspecified
CPT/HCPCS: 50590; 74018; J0690; J2405

== ENCOUNTER → 2024-08-28 | Outpatient (CLI) | payer MEDICARE, BC | LOC: M PLAIMG 14:46 → M PLALAB 14:46 | PROVIDERS: ATTEND Nurse Practitioner Family | DX: N20.0 Calculus of kidney (principal) ==

== ENCOUNTER → 2024-10-29 | Outpatient (CLI) | payer MEDICARE, OTHER | LOC: M OUTALCOH 12:38 | PROVIDERS: ATTEND Psychiatry & Neurology Psychiatry | DX: F11.20 Opioid dependence, uncomplicated (principal); F17.200 Nicotine dependence, unspecified, uncomplicated ==

== ENCOUNTER 2024-10-31 08:40 | Outpatient (RCR) | payer MEDICARE, OTHER | END 2024-11-06 | LOC: M OUTALCOH 08:40 | PROVIDERS: ATTEND Psychiatry & Neurology Psychiatry | DX: F11.20 Opioid dependence, uncomplicated (principal); F17.200 Nicotine dependence, unspecified, uncomplicated ==

== ENCOUNTER 2024-12-05 15:00 | Outpatient (RCR) | payer MEDICARE, OTHER | END 2024-12-07 | LOC: M OUTALCOH 15:00 | PROVIDERS: ATTEND Psychiatry & Neurology Psychiatry | DX: F11.20 Opioid dependence, uncomplicated (principal); F17.200 Nicotine dependence, unspecified, uncomplicated ==

== ENCOUNTER 2024-12-29 12:48 | Outpatient (RCR) | payer MEDICARE, OTHER | END 2025-01-06 | LOC: M OUTALCOH 12:48 | PROVIDERS: ATTEND Psychiatry & Neurology Psychiatry | DX: F11.20 Opioid dependence, uncomplicated (principal); F17.200 Nicotine dependence, unspecified, uncomplicated | CPT/HCPCS: 90834; G0463 ==

== ENCOUNTER 2025-02-02 16:00 | Outpatient (RCR) | payer MEDICARE, OTHER | END 2025-02-06 | LOC: M OUTALCOH 16:00 | PROVIDERS: ATTEND Psychiatry & Neurology Psychiatry | DX: F11.20 Opioid dependence, uncomplicated (principal); F17.200 Nicotine dependence, unspecified, uncomplicated ==

== ENCOUNTER → 2025-02-25 | Outpatient (CLI) | payer MEDICARE | LOC: M PLAIMG 14:12 | PROVIDERS: ATTEND Nurse Practitioner Family | DX: N20.0 Calculus of kidney (principal) ==

== ENCOUNTER → 2025-02-25 | Outpatient (CLI) | payer MEDICARE | LOC: M PLAIMG 14:15 | PROVIDERS: ATTEND Nurse Practitioner Family | DX: R06.02 Shortness of breath (principal); R06.2 Wheezing ==

== ENCOUNTER 2025-04-06 15:46 | Outpatient (RCR) | payer MEDICARE, OTHER | END 2025-04-08 | LOC: M OUTALCOH 15:46 | PROVIDERS: ATTEND Psychiatry & Neurology Psychiatry | DX: F11.20 Opioid dependence, uncomplicated (principal); F17.200 Nicotine dependence, unspecified, uncomplicated ==